=== PATIENT | female | born 1975 | race African-American/Black ===

== ENCOUNTER 2022-08-21 10:26 | Emergency (ER) | payer OTHER, MEDICAID, SELFPAY ==
[2022-08-21 10:34] VITALS: BP 152/82; PULSE 70; RESP 18; TEMP 36.3; O2SAT 100
[2022-08-21 10:39] VITALS: BP 152/82; PULSE 70; RESP 18; TEMP 36.3; O2SAT 100
--- NOTE | 2022-08-21 11:17 | ED.URI ---
HPI - URI/Sore Throat General Chief Complaint: Upper Respiratory Infection Stated Complaint: Cough/Chest Congestion Time Seen by Provider: 08/21/22 11:17 Source: patient, RN notes reviewed and old records reviewed Mode of arrival: ambulatory Limitations: no limitations History of Present Illness HPI Narrative: 46-year-old female who presents to [facility] with complaints cough cold symptoms since Friday. Mother reports that on Friday she had some nausea/vomiting, sinus pressure,chest congestion, sore throat cough, bilateral ear pain. Patient reports that she has been taking Flonase,Mucines, Tylenol,Robitussin for her cough and also Zyrtec. Patient reports history of sinus allergies. MD elicited complaint: cough, sore throat, rhinorrhea, nasal congestion, sinus pain and other (nausea and vomiting for 1 day) Onset (ago): day(s) (5) Pain scale (0-10): 8 Able to tolerate fluids by mouth: Yes Treatments prior to arrival: acetaminophen and other (Robitussin,Zyrtec, Mucinex,Flonase) Related Data Home Medications Medication Instructions Recorded Confirmed cetirizine 10 mg tablet 10 mg PO DAILY 08/21/22 08/21/22 ferrous sulfate 325 mg (65 mg 325 mg PO DAILY 08/21/22 08/21/22 iron) tablet (FeroSul) fluticasone propionate 50 1 spray intranasal DAILY 08/21/22 08/21/22 mcg/actuation nasal spray,suspension paroxetine HCl 20 mg tablet 20 mg PO DAILY 08/21/22 08/21/22 risperidone 1 mg tablet 1 mg PO DAILY 08/21/22 08/21/22 Allergies Allergy/AdvReac Type Severity Reaction Status Date / Time No Known Allergies Allergy Verified 08/21/22 10:39 Review of Systems Review of Systems: CONSTITUTIONAL: Reports malaise, chills, sweats, or fever. EYES: Denies visual changes, redness, or discharge. ENT: Reports rhinorrhea, congestion,facial sinus pain, otalgia and sore throat. CARDIOVASCULAR: Denies chest pain, palpitations, or edema. RESPIRATORY: Reports cough.? Denies dyspnea. GASTROINTESTINAL: Denies abdominal pain,1 day of nausea, vomiting,no diarrhea SKIN: Denies rash or itching. MUSCULOSKELETAL: Denies myalgia. NEUROLOGIC: Denies headache. All systems reviewed & are unremarkable except as noted in HPI and below PMFSH Past Medical History Medical History (Updated 08/22/22 @ 12:10 by Kiesha Nance NP) Depression Environmental allergies Surgical History Surgical History (Updated 08/22/22 @ 12:06 by Kiesha Nance NP) H/O toe surgery Previous section Social History Social History (Updated 08/22/22 @ 12:08 by Kiesha Nance NP) Smoking status: Never smoker Alcohol intake: current Alcohol use details: social Substance use type: does not use Living arrangements: with family Gender identity (if verbalized by the patient): Female Comments At time of signature, agree with nursing past medical, surgical, social and family history. There is no relevant family history pertinent to the presenting complaint Exam Narrative: GENERAL: Well-appearing, well-nourished, and in no acute distress. HEAD: Normocephalic EYES: PERRLA, conjunctivae clear ENT: Nares clear, turbinates edematous and erythematous, clear discharge. Mucous membranes moist. TM pearly caballero with dull light reflex bilaterally; no tragal tenderness. Oropharynx erythematous without lesions. Tonsils not enlarged and without exudate, no drooling, no hoarseness, no trismus, uvula midline.post nasal drainage NECK: Supple. No lymphadenopathy CHEST: Clear to auscultation, breath sounds equal. No wheezing, rhonchi, rales, or stridor. No respiratory distress, speaks in full sentences.cough, SAO2 100% on room air HEART: Regular rate and rhythm. No murmur heard. SKIN: Warm, dry, no rash. NEURO: Alert and oriented x3. PSYCH: Normal mood and affect Course Course Emergency Course: Patient is aware of diagnosis, understands and agrees to treatment plan.? Anticipatory guidance given.? Patient agrees to foll
== END 2022-08-21 11:39 | disposition home or self-care (01) ==
PROVIDERS: Emergency Provider Registered Nurse; PCP Nurse Practitioner
DX: J06.9 Acute upper respiratory infection, unspecified (principal); R05.9 Cough, unspecified; F32.A Depression, unspecified
CPT/HCPCS: 99213; G0463

== ENCOUNTER 2022-12-27 11:30 | Emergency (ER) | payer OTHER, SELFPAY ==
[2022-12-27 11:41] VITALS: BP 145/78; PULSE 95; RESP 16; TEMP 36.3; O2SAT 100
--- NOTE | 2022-12-27 12:01 | ED.NAVMDI ---
HPI - Nausea/Vomiting/Diarrhea General Chief complaint: Nausea/Vomiting/Diarrhea Stated complaint: headache/nausea/cramping Time Seen by Provider: 12/27/22 12:02 Source: patient, RN notes reviewed and old records reviewed Mode of arrival: ambulatory Limitations: no limitations History of Present Illness HPI Narrative: 47 year old female presents to [facility] care with complaints of headache, facial pressure,sinus congestion and drainage for about a week duration. She reports that she has been taking Claritin and using Flonase without relief. Patient reports history of seasonal allergies and past sinus infections. Patient also sttes that she has had some mild lower abdominal cramping, denies any nausea, vomiting or diarrhea. Patient reports that she is not on her menses and she has no burning or pain with urination, denies any constipation. MD elicited complaint: other (lower abdominal cramping, headache, sinus congestion and drainage ,facial pressure) Pertinent past history: other (none) Onset (ago): week(s) (1) Treatment prior to arrival: other (Flonase and Claritin) Related Data Home Medications Medication Instructions Recorded Confirmed cetirizine 10 mg tablet 10 mg PO DAILY 08/21/22 08/21/22 ferrous sulfate 325 mg (65 mg 325 mg PO DAILY 08/21/22 08/21/22 iron) tablet (FeroSul) fluticasone propionate 50 1 spray intranasal DAILY 08/21/22 08/21/22 mcg/actuation nasal spray,suspension paroxetine HCl 20 mg tablet 20 mg PO DAILY 08/21/22 08/21/22 risperidone 1 mg tablet 1 mg PO DAILY 08/21/22 08/21/22 Allergies Allergy/AdvReac Type Severity Reaction Status Date / Time No Known Allergies Allergy Verified 08/21/22 10:39 Review of Systems Review of Systems: CONSTITUTIONAL: Denies fever, chills, or sweats. EYES: Denies visual changes, redness, or discharge. ENT: Reports rhinorrhea, congestion, no sore throat, or otalgia. CARDIOVASCULAR: Denies chest pain, palpitations, or edema. RESPIRATORY: Denies cough or dyspnea. GASTROINTESTINAL: Reports lower abdominal cramping,denies any nausea, vomiting, or diarrhea. GENITOURINARY: Denies dysuria or hematuria. SKIN: Denies rash or itching. MUSCULOSKELETAL: Denies back pain, joint pain, or myalgia. NEUROLOGIC: reports frontal headache,no numbness, or weakness. PSYCHIATRIC: Positive for history of anxiety or depression. All systems reviewed & are unremarkable except as noted in HPI and below PMFSH Past Medical History Medical History (Updated 12/28/22 @ 08:41 by Kiesha Nance NP) Depression Environmental allergies Surgical History Surgical History (Updated 08/22/22 @ 12:06 by Kiesha Nance NP) H/O toe surgery Previous section Social History Social History (Updated 08/22/22 @ 12:08 by Kiesha Nance NP) Smoking status: Never smoker Alcohol intake: current Alcohol use details: social Substance use type: does not use Living arrangements: with family Gender identity (if verbalized by the patient): Female Comments At time of signature, agree with nursing past medical, surgical, social and family history. There is no relevant family history pertinent to the presenting complaint Exam Narrative: GENERAL: Well-appearing, well-nourished, and in no acute distress. HEAD: Normocephalic, atraumatic. EYES: PERRLA and EOMI. ENT: Nares clear, clear to light yellow rhinorrhea no epistaxis, facial sinus pressure left side and frontal headache. Mucous membranes moist.TM's normal with dull light reflex, throat pink with no lesions or swelling post nasal drainage noted NECK: Supple. no lymphadenopathy CHEST: Clear to auscultation. No respiratory distress.SAO2 100% on room air HEART: Regular rate and rhythm. No murmur heard. Normal peripheral pulses. ABDOMEN: Soft, nontender to palpation, no McBurney point tenderness, nondistended, normal active bowel sounds.No burning or pain with urination or CVA tenderness EXTREMITIES: Normal range of motion. N
== END 2022-12-27 12:48 | disposition home or self-care (01) ==
PROVIDERS: Emergency Provider Registered Nurse; PCP Nurse Practitioner
DX: J32.9 Chronic sinusitis, unspecified (principal); F32.A Depression, unspecified
CPT/HCPCS: 81003; 99213; G0463

== ENCOUNTER 2024-05-11 14:02 | Emergency (ER) | payer SELFPAY ==
[2024-05-11 14:23] LABS: EDUAAPPEAR Cloudy; EDUABILI Negative (Negative); EDUABLOOD 3+ (Negative); EDUACOLOR1 Amber; EDUAGLUCOSE Negative (Negative); EDUAKETONE Negative (Negative); EDUALEUKO Negative (Negative); EDUANITRATE Negative (Negative); EDUAPH 6.5; EDUAPROTEIN 1+ (Negative); EDUASPGRAVITY 1.015; EDUAUROBILI 0.2
[2024-05-11 14:25] VITALS: BP 151/81; PULSE 100; RESP 20; TEMP 36.8
--- NOTE | 2024-05-11 14:44 | ED_ITS ---
HPI - General Adult General Chief complaint: Urogenital-Female Stated complaint: Urinary Problem Source: patient Mode of arrival: ambulatory Limitations: no limitations History of Present Illness HPI narrative: Patient presents for evaluation of two episodes of what she believes to be hematuria that occurred today. She saw blood in the toilet after using the restroom. She has also experienced urinary frequency for the past month without other urinary symptoms. She saw her PCP about a month ago and had what sounds to be incidental hematuria noted on urinalysis. She did not have any gross hematuria at that time. She was having some right lower back pain around that time and her PCP told her that she may have kidney stones. However, no imaging was performed to confirm this. She was started on flomax and it sounds like she is still taking it. She was having some vaginal discharge and her PCP treated her for vaginal candidiasis with Diflucan. Her discharge has since resolved. She states she has had some intermittent right sided flank pain with last episode about four days ago. She denies any fever, chills, abdominal pain, or vaginal discharge. Her menstruation is typically fairly regular and her LMP was 04/22/24. Surgical history positive for . She did have an ectopic in May of 2022. Related Data Home Medications ?Medication ?Instructions ?Recorded ?Confirmed ?Last Taken ?Type tamsulosin 0.4 mg capsule mg PO 05/11/24 Unknown History Allergies Allergy/AdvReac Type Severity Reaction Status Date / Time acetaminophen (From Vicodin) Allergy Unknown Unknown Verified 05/11/24 14:19 hydrocodone (From Vicodin) Allergy Unknown Unknown Verified 05/11/24 14:19 morphine Allergy Unknown Unknown Verified 05/11/24 14:19 Review of Systems Review of Systems: CONSTITUTIONAL: Denies fever, chills, or sweats. EYES: Denies visual changes, redness, or discharge. ENT: Denies rhinorrhea, congestion, sore throat, or otalgia. CARDIOVASCULAR: Denies chest pain, palpitations, or edema. RESPIRATORY: Denies cough or dyspnea. GASTROINTESTINAL: Denies abdominal pain, nausea, vomiting, or diarrhea. GENITOURINARY: Reports urinary frequency and what she believes to be hematuria SKIN: Denies rash or itching. MUSCULOSKELETAL: Denies low back pain joint pain, or myalgia. NEUROLOGIC: Denies headache, numbness, dizziness, or weakness. PSYCHIATRIC: Denies anxiety or depression. [facility] Past Medical History Medical History Depression Environmental allergies Surgical History Surgical History H/O toe surgery Previous section Family History Family History Mother Family history non-contributory Social History Social History (Updated 08/22/22 @ 12:08 by Kiesha Nance NP) Smoking status: Never smoker Alcohol intake: current Alcohol use details: social Substance use type: does not use Living arrangements: with family Gender identity (if verbalized by the patient): Female Exam Narrative: GENERAL: Well-appearing, well-nourished, and in no acute distress. HEAD: Normocephalic, atraumatic. EYES: PERRLA and EOMI. ENT: Nares clear, no rhinorrhea or epistaxis. Mucous membranes moist. Oropharynx without tonsillar hypertrophy exudate or other lesions. Bilateral TMs pearly caballero nonbulging NECK: Supple. No adenopathy or masses. No carotid bruits or JVD CHEST: Clear to auscultation. No respiratory distress. No wheezes rales or rhonchi HEART: Regular rate and rhythm. No murmur heard. Normal peripheral pulses. ABDOMEN: Soft, nondistended, normal active bowel sounds. There is right lower quadrant tenderness. GENITAL: No external genital lesions. There is moderate amount of blood in the vaginal vault EXTREMITIES: Normal range of motion. No edema. SKIN: Warm, dry, no rash. NEURO: No focal deficits. Alert and oriented x3. PSYCH: Normal mood and affect. Course Course Emergency Course: This is a 48-year-old female who presented for evaluation of what she believed to be hematuria. Urine today positive for blood. I did a pelvic exam and bleeding appears to be coming from her uterus as she has a moderate amount of blood in the vaginal vault. She is tender in the right lower quadrant. Recommended she be transferred to the hospital for further evaluation. [facility] is her facility of [facility]. I contacted [facility] and spoke with RN, Cassidy, who indicates that Dr Rosenthal will accept pt for transfer there. Patient was updated throughout her stay and was in agreement plan of care, including plans for transfer. Level of Care: Express Care Visit Vital Signs Vital signs: Vital Signs Temperature 36.8 C 05/11/24 14:25 Pulse Rate 100 05/11/24 14:25 Respiratory Rate 20 05/11/24 14:25 Blood Pressure 151/81 H 05/11/24 14:25 Oxygen Delivery Room Air 05/11/24 14:25 Temperature 36.8 C 05/11/24 14:25 Pulse Rate 100 05/11/24 14:25 Respiratory Rate 20 05/11/24 14:25 Blood Pressure 151/81 H 05/11/24 14:25 Oxygen Delivery Room Air 05/11/24 14:25 Medical Decision Making Vital Signs Vital Signs: Vital Signs Temperature 36.8 C 05/11/24 14:25 Pulse Rate 100 05/11/24 14:25 Respiratory Rate 20 05/11/24 14:25 Blood Pressure 151/81 H 05/11/24 14:25 Oxygen Delivery Room Air 05/11/24 14:25 Temperature 36.8 C 05/11/24 14:25 Pulse Rate 100 05/11/24 14:25 Respiratory Rate 20 05/11/24 14:25 Blood Pressure 151/81 H 05/11/24 14:25 Oxygen Delivery Room Air 05/11/24 14:25 Lab Data Labs: Lab Results 05/11/24 05/11/24 05/11/24 Range/Units 14:19 14:57 15:05 POC Capillary Glucose 78 (65-105) mg/dl POC Urine Color Magaly POC Urine Clarity Cloudy POC Urine pH 6.5 POC Ur Specif [place] 1.015 POC Urine Protein 1+ (Negative) POC Ur Glucose (UA) Negative (Negative) POC Urine Ketones Negative (Negative) POC Urine Blood 3+ (Negative) POC Urine Nitrite Negative (Negative) POC Urine Bilirubin Negative (Negative) POC Urine Urobilinogen 0.2 POC U Leukocyte Esteras Negative (Negative) POC Urine HCG, Qual Negative (Negative) Discharge Plan Discharge Clinical Impression: Pelvic pain, Vaginal bleeding Patient Disposition: Acute Care Hospital Condition: Stable Patient Language: Tamazight Prescriptions: No Action tamsulosin 0.4 mg capsule PO Follow-up/Referrals: Nicoal,Immanuel Ma APRN [Primary Care Provider] - Time of Disposition: 15:08
[2024-05-11 14:59] LABS: Glucose Point of Care 78 mg/dl (65-105)
[2024-05-11 15:06] LABS: BEDSIDEPREGUCG Negative (Negative)
== END 2024-05-11 15:12 | disposition short-term general hospital (02) ==
PROVIDERS: Emergency Provider Nurse Practitioner; PCP Nurse Practitioner
DX: R10.2 Pelvic and perineal pain (principal); N93.9 Abnormal uterine and vaginal bleeding, unspecified
CPT/HCPCS: 81003; 81025; 82948; 99214; G0463

== ENCOUNTER 2025-03-15 15:13 | Emergency (ER) | payer OTHER, SELFPAY ==
--- OUTSIDE RECORDS SUMMARY | 2010-10-30 11:40 | XMS_ITS | Continuity of Care Document ---
Author Organization [facility] Address [address] [place] [address] Phone Care Team Providers Care Quality Rn Name Role Phone Unavailable Unavailable Unavailable Medications Medication Instructions Dosage Effective Dates (start - stop) Status Comments Dyazide 37.5 mg-25 mg Cap - Active Nicotine 14 mg/24 hr daily Patch - Active Procedures Procedure Date ULTRASOUND PELVIC NON-OB Advance Directives Directive Yes / No Effective Date File Name No Information Encounters Encounter Description Practice Location Reason(s) For Visit Diagnoses Date Provider Providers Copied on Encounter [facility], [address], [place], [place], [id number], [place] tel:[phone] [facility] No Information 1 No Information [facility], [address], [place], [place], [id number], [place] tel:[phone] Noteworthy Legacy Data Nondependent tobacco use disorderBenign essential hypertensionExc essive or frequent menstruationOth er general counseling and advice on contraceptive management 1 No Information Family History Family Member Type Diagnosis Age At Onset No Information Payers Payer name Insurance type Covered libertarian ID Authoriza tion(s) No Information Social History Type Description Quantity Date Captured Comments Sex Female Smoking Status No Information Chief Complaint And Reason For Visit No Information Reason For Referral Reason For Referral No Information History Of Present Illness Encounter Date Complaint History Of Prese nt Illness No Information Functional Status Date Functional Assessmen t No Information Instructions Date Instruction Additional Infor mation No Information Assessments Type Assessment Date No Information Patient Care Teams Name Effective Dates (start - stop) Status Members No Information
[2025-03-15 15:26] VITALS: BP 150/84; PULSE 87; RESP 18; TEMP 36.6; O2SAT 100
--- NOTE | 2025-03-15 16:16 | ED_ITS ---
HPI - General Adult General Chief complaint: Skin/Abscess/Foreign Body Stated complaint: rash on neck Source: patient Mode of arrival: ambulatory Limitations: no limitations History of Present Illness HPI narrative: Patient presents for evaluation pruritic rash to left neck. Symptom onset yesterday. She had used Pond's cream prior to the time of symptom onset. She thought her rash may be fungal in origin so applied ketoconazole. She experienced burning in the area thereafter, without any improvement. She denies any difficulty breathing or swallowing. She states her environmental allergies have been bothersome as of late. Related Data Home Medications ?Medication ?Instructions ?Recorded ?Confirmed ?Last Taken ?Type paroxetine HCl 20 mg tablet mg PO 03/15/25 Unknown Hi story risperidone 1 mg tablet mg 03/15/25 Unknown History Allergies Allergy/AdvReac Type Severity Reaction Status Date / Time acetaminophen (From Vicodin) Allergy Unknown Unknown Verified 03/15/25 15:25 hydrocodone (From Vicodin) Allergy Unknown Unknown Verified 03/15/25 15:25 morphine Allergy Unknown Unknown Verified 03/15/25 15:25 Review of Systems Review of Systems: CONSTITUTIONAL: Denies fever, chills, or sweats. EYES: Denies visual changes, redness, or discharge. ENT: Denies rhinorrhea, congestion, sore throat, or otalgia. CARDIOVASCULAR: Denies chest pain, palpitations, or edema. RESPIRATORY: Denies cough or dyspnea. GASTROINTESTINAL: Denies abdominal pain, nausea, vomiting, or diarrhea. GENITOURINARY: Denies dysuria or hematuria. SKIN:Reports pruritic rash to left lateral neck MUSCULOSKELETAL: Denies back pain, joint pain, or myalgia. NEUROLOGIC: Denies headache, numbness, dizziness, or weakness. PSYCHIATRIC: Denies anxiety or depression. [facility] Past Medical History Medical History Depression Environmental allergies Surgical History Surgical History H/O toe surgery Previous section Family History Family History Mother Family history non-contributory Social History Social History Smoking status: Never smoker Alcohol intake: current Alcohol use details: social Substance use type: does not use Living arrangements: with family Gender identity (if verbalized by the patient): Female Exam Narrative: GENERAL: Well-appearing, well-nourished, and in no acute distress. HEAD: Normocephalic, atraumatic. EYES: PERRLA and EOMI. ENT: Nares clear, no rhinorrhea or epistaxis. Mucous membranes moist. Oropharynx without tonsillar hypertrophy exudate or other lesions. Bilateral TMs pearly caballero nonbulging NECK: Supple. No adenopathy or masses. No carotid bruits or JVD CHEST: Clear to auscultation. No respiratory distress. No wheezes rales or rhonchi HEART: Regular rate and rhythm. No murmur heard. Normal peripheral pulses. ABDOMEN: Soft, nontender, nondistended, normal active bowel sounds. EXTREMITIES: Normal range of motion. No edema. SKIN: There is a very light erythematous rash with overlying scaling to the left posterolateral aspect of the neck NEURO: No focal deficits. Alert and oriented x3. PSYCH: Normal mood and affect. Course Course Emergency Course: This is a 49-year-old female who presented for evaluation of a pruritic rash. Antifungals have been ineffective. Will try triamcinolone. Follow up with primary provider. Go to the ER for worsening symptoms. Pt in agreement with plan of care. Level of Care: Express Care Visit Vital Signs Vital signs: Vital Signs Temperature 36.6 C 03/15/25 15: Pulse Rate 87 03/15/25 15:26 Respiratory Rate 18 03/15/25 15:26 Blood Pressure 150/84 H 03/15/25 15:26 Pulse Oximetry 100 03/15/25 15:26 Oxygen Delivery Room Air 03/15/25 15:26 Temperature 36.6 C 03/15/25 15: Pulse Rate 87 03/15/25 15:26 Respiratory Rate 18 03/15/25 15:26 Blood Pressure 150/84 H 03/15/25 15:26 Pulse Oximetry 100 03/15/25 15:26 Oxygen Delivery Room Air 03/15/25 15:26 Medical Decision Making Vital Signs Vital Signs: Vital Signs Temperature 36.6 C 03/15/25 15: Pulse Rate 87 03/15/25 15:26 Respiratory Rate 18 03/15/25 15:26 Blood Pressure 150/84 H 03/15/25 15:26 Pulse Oximetry 100 03/15/25 15:26 Oxygen Delivery Room Air 03/15/25 15:26 Temperature 36.6 C 03/15/25 15:26 Pulse Rate 87 03/15/25 15:26 Respiratory Rate 18 03/15/25 15:26 Blood Pressure 150/84 H 03/15/25 15:26 Pulse Oximetry 100 03/15/25 15:26 Oxygen Delivery Room Air 03/15/25 15:26 Discharge Plan Discharge Clinical Impression: Dermatitis Patient Disposition: Home Condition: Stable Instructions: Antibiotic Form, Dermatitis (ED) Patient Language: Ukrainian Prescriptions: New triamcinolone acetonide 0.1 % cream 1 applic topical BID Qty: 80 0RF No Action paroxetine HCl 20 mg tablet PO risperidone 1 mg tablet Follow-up/Referrals: Lucio,Hilaria Alvarado APRN [Primary Care Provider, Unknown] Time of Disposition: 16:15
--- OUTSIDE RECORDS SUMMARY | 2025-03-15 19:02 | XMS_ITS | Clinical Summary ---
Author Organization [facility] Address [address] [place] [id number] Care Team Providers Care Distribution Technician Name Role Phone Franck Hathaway MD Unavailable [phone] Immanuel Petersen NP Primary Care Provider [phone] Allergies Active Allergy Reactions Criticality Noted Date Comments Hydrocodone-Acetaminophen Itching Low 03/11/2023 Morphine Itching Low 03/11/2023 Medications PARoxetine (PAXIL) 20 MG tablet Take 1 tablet (20 mg total) by mouth nightly at bedtime. 30 tablet 05/15/2024 Active risperiDONE (RISPERDAL) 1 MG tablet Take 1 tablet (1 mg total) by mouth nightly at bedtime. 60 tablet 05/15/2024 Active ferrous sulfate EC 324 (65 Fe) MG tablet Take 1 tablet (324 mg total) by mouth daily with breakfast. 60 tablet 1 05/16/2024 Active ACETAMINOPHEN EXTRA STRENGTH 500 MG tablet Take 1 tablet (500 mg total) by mouth every 4 (four) hours as needed. 08/13/2024 Active Active Problems Problem Noted Date Diagnosed Date Hypertensive disorder 07/13/2024 Chest pain 05/14/2024 Elevated troponin 05/14/2024 Atypical glandular cells of undetermined significance (CHERI) on cervical Pap smear 04/06/2023 NSTEMI (non-ST elevated myocardial infarction) 1 Family History Medical History Relation Comments Heart Disease Father Relation Status Comments Father Social History Tobacco Use Types Packs/Day Years Used Date Smoking Tobacco: Former Cigarettes 0.5 22 Smokeless Tobacco: Never Tobacco Cessation:Counseling Given: Not Answered Comments:Quit smoking 2020 Alcohol Use Standard Drinks/Week Comments No 0 (1 standard drink = 0.6 oz pur e alcohol) [facility] Utilities Answer Date Recorded In the past 12 months has e electric, gas, oil, or water company threatened to shut off services in your home? Yes 05/14/2024 Humiliation, Afraid, Rape, and Kick questionnair e Answer Date Recorded Within the last year, have y ou been afraid of your partner or ex-partner? No 05/14/2024 Within the last year, have y ou been humiliated or emotionally abused in other ways by your partner or ex-partner? No Within the last year, have y ou been kicked, hit, slapped, or otherwise physically hurt by your partner or ex-partner? No 05/14/2024 Within the last year, have y ou been raped or forced to have any kind of sexual activity by your partner or ex-partner? No 05/14/2024 Overall Financial Resource Strain (CARDIA) Answe r Date Recorded How hard is it for you to pa y for the very basics like food, housing, medical care, and heating? Somewhat hard 05/14/2024 Hunger Vital Sign Answer Date Recorded Within the past 12 months, y ou worried that your food would run out before you got the money to buy more. Sometimes true Within the past 12 months, t he food you bought just didn't last and you didn't have money to get more. Sometimes true PRAPARE - Transportation Answer Date Re corded In the past 12 months, has l ack of transportation kept you from medical appointments or from getting medications? No 04/26 In the past 12 months, has l ack of transportation kept you from meetings, work, or from getting things needed for daily living? No 05/14/2024 Housing Stability Vital Sign Answer Ross e Recorded In the last 12 months, was t here a time when you were not able to pay the mortgage or rent on time? No 05/14/2024 In the past 12 months, how m any times have you moved where you were living? 0 05/14/2024 At any time in the past 12 m [facility], were you homeless or living in a group home (including now)? 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 Respiratory Rate 15 05/15/2024 11:58 AM FIVE ROLL REFINER BATCH MIXER Oxygen Saturation 100% 08/23/2024 2:24 PM CDT Inhaled Oxygen Concentration - - Weight 97.5 kg (215 lb) 08/23/2024 2:24 PM CDT Height 170.2 cm (5' 7) 08/23/2024 2:24 PM CDT Body Mass Index 33.67 08/23/2024 2:24 PM CDT Plan of Treatment Upcoming Encounters Date Type Department Care Team (Late st Contact Info) Description 08/23/2025 11:00 AM CDT Appointment [facility] [place] [address] Yumiko King APRN Three [facility] [address] [place], [place] [address] 08/31/2025 11:00 AM CDT Office Visit [facility] THREE [facility] [address] [place], [place] [address] Rylan Mcghee MD Three [facility] [address] [place], [place] [address] Health Maintenance Due Date Last Done Comments ASCVD Statin 1975 Cervical Cancer Screening Pa p Smear (Age 30 to 64) Every 3 Years 1977 Colorectal Cancer Screening Colonoscopy (10 Years) 1977 Annual Physical 1980 Hepatitis C 09/15/1995 DTaP, Tdap and Td Vaccines ( 1 - Tdap) 1996 Hepatitis B Vaccines (1 of 3 - 19+ 3-dose series) 1996 Pneumococcal Vaccine: Pediat rics (0 to 5 Years) and At-Risk Patients (6 to 49 Years) (1 of 2 - PCV) 1996 Cervical Cancer Screening Pa p with HPV Testing (Age 30 to 64) Every 5 Years 09/15/2007 Cervical Cancer Screening with HPV 09/15/2007 COVID-19 Vaccine (1 - 2023-2 5 season) 2025 Influenza Adult (#1) 2025 Mammogram Screening 04/30/2025 04/30/2023 Hepatitis A Vaccines Aged Out No long er eligible based on patient's age to complete this topic Meningococcal B Vaccine Aged Out No l onger eligible based on patient's age to complete this topic Meningococcal Vaccine Aged Out No chad froilan eligible based on patient's age to complete this topic RSV Immunizations Under 20 Months Aged Out No longer eligible based on patient's age to complete this topic Insurance [employer] [place] [employer] Advance Directives * Full Code (Latest Code Status on File) Date Activated Date Inactivated Comments 05/14/2024 5:28 PM 05/15/2024 4:18 PM * Full Code Date Activated Date Inactivated Comments 05/14/2024 4:58 PM 05/14/2024 5:28 PM * Full Code Date Activated Date Inactivated Comments 03/21/2018 12:41 AM 03/21/2018 1:33 PM Care Teams Distribution Technician Relationship Specialty Start Date End Date Immanuel Petersen NP PCP - General NURSE PRACTITIONER 05/30/22 Franck Hathaway MD Dede Stagecraft Teacher CARDIOVASCULAR DISEASE 08/21/18
--- OUTSIDE RECORDS SUMMARY | 2025-03-15 19:02 | XMS_ITS | Encounter Summary ---
Author Organization [facility] Address [address] [place] [address] Phone Care Team Providers Care Electric Fork Operator Name Role Phone Immanuel Petersen NP Primary Care Provider + [phone] Franck Hathaway MD Unavailable [phone] Yumiko King NOC TECHNICIAN Primary Care Provider [phone] Encounter Details Date Type Department Care Team (Late st Contact Info) Description 05/14/2022 Telephone [facility] Medicine Cardiology [facility] Advanced Medicine 8th [place] [address] [place] [address] Tamika Javier Social History Tobacco Use Types Packs/Day Years Used Date Smoking Tobacco: Former Cigarettes Comments Unknown Sex and Gender Information Value Date Recorded Sex Assigned at Not on file 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 Gender Identity Not on file Sexual Orientation Not on file documented as of this encounter Plan of Treatment Not on file documented as of this encounter Visit Diagnoses Not on filedocumented in this encounter Care Teams Electric Fork Operator Relationship Specialty Start Date End Date Immanuel Petersen [facility] [place] [address] PCP - General Pain Management 02/21/22 09/08/24 Yumiko King NP Three [address] [address] PCP - General Family Medicine 09/09/24 Franck Hathaway MD [address] [address] Referring Physician Cardiovascular Disease 08/24/24 documented as of this encounter
--- OUTSIDE RECORDS SUMMARY | 2025-03-15 19:02 | XMS_ITS | Clinical Summary ---
Author Organization [facility] Address [address] [place] [address] Care Team Providers Care Internet Cafe Manager Name Role Phone Fredy Rivas MD Primary Care Provider [phone] Source Comments [facility],non-owned Affiliates and Associated Physician Practices is amultiple site organization consisting of ambulatory clinics and hospital sitesin [place], [place], [place] and [place]. This disclosure is being madepursuant to the Care Everywhere program and may not contain all information available regarding this patient. Last updated 18.[facility] Allergies No known active allergies Medications * Be aware that medications may not be up to date on this document. Alwaysverify current medications with the patient. benztropine (COGENTIN) 1 MG tablet Take 1 mg by mouth at bedtime Active carBAMazepine ER 12hr (CARBATROL) 200 MG capsule Take 200 mg by mouth at bedtime Active melatonin 3 MG tablet Take 5 mg by mouth at bedtime Active PARoxetine (PAXIL) 40 MG tablet Take 40 mg by mouth at bedtime Active risperiDONE (RISPERDAL) 1 MG tablet Take 1 mg by mouth at bedtime Active fluticasone propionate (FLONASE) 50 MCG/ACT nasal sprayIndication s:Mixed rhinitis Cascade 1 (one) spray into each nostril 2 times daily 16 g 5 11/06/2020 Active azelastine (ASTELIN) 0.1 % nasal sprayIndication s:Mixed rhinitis Cascade 2 (two) sprays into each nostril 2 times daily 1 Inhaler 5 11/06/2020 Active ketotifen (ZADITOR) 0.025 % ophthalmic solutionIndicat ions:Mixed rhinitis Instill 1 (one) drop into both eyes 2 times daily 5 mL 5 11/06/2020 Active Active Problems Problem Noted Date Diagnosed Date Elevated troponin 12/12/2017 Chest pain 12/12/2017 Family History Medical History Relation Name Comments Sickle Cell Anemia Brother Hypertension Father None Known Mother Relation Name Status Comments Brother Father Mother Social History Tobacco Use Types Packs/Day Years Used Date Smoking Tobacco: Some Days Cigarettes 0.5 22 Smokeless Tobacco: Never Tobacco Cessation:Ready to Q uit: No; Counseling Given: Yes Alcohol Use Standard Drinks/Week Comments No 0 (1 standard drink = 0.6 oz pur e alcohol) PHQ-2 Answer Date Recorded PHQ2 TOTAL SCORE 0 11/06/2020 Comments No Sex and Gender Information Value Date Recorded Sex Assigned at Not on file Legal Sex Female 12:58 PM CDT Gender Identity Not on file Sexual Orientation Not on file Last Filed Vital Signs Vital Sign Reading Time Taken Comments Blood Pressure 118/54 12/15/2017 12:04 PM CDT Pulse 54 12/15/2017 12:04 PM CDT Temperature 36.5 C (97.7 F) 12/15/2017 12:04 PM CDT Respiratory Rate 18 12/15/2017 12:04 PM CDT Oxygen Saturation 100% 12/15/2017 12:04 PM CDT Inhaled Oxygen Concentration - - Weight 86.6 kg (191 lb) 12/15/2017 8:15 AM CDT Height 170.2 cm (5' 7) 12/15/2017 8:15 AM CDT Body Mass Index 29.91 12/15/2017 8:15 AM CDT Plan of Treatment Health Maintenance Due Date Last Done Comments COLOGUARD (AGES 45-75) - COL ON CA SCREENING 1977 COLON MONITORING 1977 COLONOSCOPY - COLON CA SCREENING 1977 CT COLONOGRAPHY - COLON CA SCREENING 1977 Colorectal Cancer Screening 1977 FIT - COLON CA SCREENING 1977 FLEX SIG - COLON CA SCREENING 1977 LIPID TESTING 1977 MAMMOGRAM 1977 HIV SCREENING 1992 HEPATITIS C SCREENING 09/10/1995 DTAP/TDAP/TD VACCINES (1 - Tdap) 1996 HEPATITIS B VACCINE (1 of 3 - 19+ 3-dose series) 1996 PNEUMOCOCCAL VACCINE (1 of 2 - PCV) 1996 PAP SMEAR 1998 DEPRESSION SCREENING 05/26/2024 COVID-19 VACCINE (1 - 2023-2 5 season) 2025 INFLUENZA VACCINE (#1) 2025 ZOSTER VACCINE (1 of 2) 09/15/2027 HIB VACCINE Aged Out No longer eligi ble based on patient's age to complete this topic HPV VACCINE Aged Out No longer eligi ble based on patient's age to complete this topic MENINGOCOCCAL (Group B) VACC INE SHARED DECISION-MAKING Aged Out No longer eligibl e based on patient's age to complete this topic MENINGOCOCCAL GROUPS A/C/Y/W VACCINE Aged Out No longer eligible b ased on patient's age to complete this topic Insurance * Guarantor: TIKI MEDINA Account Type Relation to Patient Date of Phone Billing Address Personal/Family [address] [facility] [address] Advance Directives * Full Code (Latest Code Status on File) Date Activated Date Inactivated Comments 12/12/2017 9:58 PM 12/15/2017 3:41 PM Care Teams Internet Cafe Manager Relationship Specialty Start Date End Date Fredy Rivas MD [address] [place] [address] [place] [id number] PCP - General Emergency Medicine 12/12/17
--- OUTSIDE RECORDS SUMMARY | 2025-03-15 19:02 | XMS_ITS | Data Portability ---
Author Organization [facility], [facility] Address [address] [place] [address] Assessment Encounter Date Assessment Date Assessment LastModified by Organization Details LastModified Time 08/12/2024 08/12/2024 CA 125 normal [email or web address] Not available 08/15/2024 08:07:50 Plan of Treatment Reminders Order Date Submit Date Provider Last Modified By Organization Details Last Modified Time Details Appointments None recorded. Lab unlisted lab - sureswab(R) advanced vaginitis plus, tma 2024 025 [employer], [address] [place], [address], 5 10:38:23 biopsy, tissue [email or web address], [address] [place], [address], 17:49:56 test, urine 2024 025 [email or web address] [facility], [address] [place], [address], 18:03:44 biopsy, tissue 2024 025 [employer] [facility], [address] [place], [address], 5 14:06:49 pap, LB 2024 025 [employer] [facility], [address] [facility], [place], [address], 5 13:21:01 HPV E6+E7 mRNA, qualitative PCR, cervix 2024 025 [facility], [address] [place], [address], 5 16:59:47 bacterial vaginosis + vaginitis panel, vaginal 2023 024 [facility], [address] [place], [address], 4 14:30:03 ca 125, serum 2023 024 [employer] [facility], [address] [place], [address], 4 07:08:07 Referral None recorded. Procedures None recorded. Surgeries None recorded. Imaging MRI, pelvis, w/wo contrast - 4.2cm hydrosalpix noted on CT scan from 05/12, MRI recommended . 2023 024 [facility], [address] [place], [address], 5 11:27:49 Medication Orders metronidazo le 500 mg tablet 2024 025 [id number], [address] [place], [place], [id number], 5 13:22:06 fluconazole 150 mg tablet 2024 025 [id number], [address], [place], [id number], 5 13:22:05 Patient TargetsNo targets recorded. Patient Instructions Encounter Date Encounter Id Patient Instructions Last Modified By Organization Details Last Modified Time 09/06/2024 [id number] colposcopy: what to expect at home [email or web address] Not available 09/06/2024 18:03:44 Reason for Referral None Reported. Results Created Date Observation Date Name Description Value Unit Range Abnormal Flag Note LastModifiedBy Organization Detail LastModifiedTime 05/21/20 24 05/21/2024 CA 125 Ca 125 12 U/mL <35 normal This test was perfo rmed using the Sieme ns Chemi lumin escen t metho d. Value s obtai krystyna from diffe rent assay metho ds canno t be used inter ramos eably . CA 125 level s, regar dless of value , shoul d not be inter prete d as absol eloy evide nce of the prese nce or absen ce of disea se. NO COLLE CTION DATE RECEI DEIDRA. WE HAVE USED THE DATE THE SPECI MEN WAS RECEI DEIDRA BY THIS LABOR ATORY THE COLLE CTION DATE. IF THIS IS INCOR RECT, PLEAS E CONTA CT CLIEN T SERVI ELIOT. PHONE NUMBE R: [phone] Not Available [employer] [address] [place], [address], 05/21/2024 07:08:07 08/18/1908/17/2024 HPV GENOT YPE HPV 16 Negati ve negati ve normal Not Available [facility] [address] [place], [address], 08/17/2024 16:59:47 08/18/1908/17/2024 HPV GENOT YPE HPV 18/45 Negati ve negati ve normal Assay can diffe renti ate HPV 16 from HPV 18 and/o r HPV 45. But canno t diffe renti ate betwe en 18 and 45. Not Available [facility] [address] [place], [address], 08/17/2024 16:59:47 08/18/19 25 08/13/2024 HPV HIGH RISK HPV high risk POSITI VE negati ve abnormal The HPV High Risk assay is inten ded for use as co-te sting with cytol ogy and not as a subst itute for regul ar cervi aguilar cytol ogy scree lilo. This assay is not inten ded for use as a scree lilo devic e for women under age 30 with meredith l cervi aguilar cytol ogy. Not Available [facility] [address] [place], [address], 08/17/2024 16:59:48 09/26/19 25 09/25/2024 SURES WAB(R ) ADVAN JENNIFER VAGIN ITIS PLUS, TMA sureswab(R) adv bacterial vaginosis (bv), tma POSITI VE negati ve abnormal Not Available [address], [address], 09/25/2024 10:38:23 09/26/19 25 09/25/2024 SURES WAB(R ) ADVAN JENNIFER VAGIN ITIS PLUS, TMA any species NOT DETECT ED not detect ed normal Not Available [address], [address], 09/25/2024 10:38:23 09/26/19 25 09/25/2024 SURES WAB(R ) ADVAN JENNIFER VAGIN ITIS PLUS, TMA any glabrata NOT DETECT ED not detect ed normal Sanjana da speci es C. albic ans, C. tropi calis , C. parap jorgito is, and/o r C. dubli niens is can be detec funmi, but not diffe renti ated, in the Sanjana da spp. resul t. Not Available [address] [place], [address], 09/25/2024 10:38:23 09/26/19 25 09/25/2024 SURES WAB(R ) ADVAN JENNIFER VAGIN ITIS PLUS, TMA trichomonas vaginalis (TV), tma NOT DETECT ED not detect ed normal Not Available [facility] [address] [address] [place], [address], 09/25/2024 10:38:23 09/26/19 25 09/25/2024 SURES WAB(R ) ADVAN JENNIFER VAGIN ITIS PLUS, TMA chlamydia trachomatis RNA, tma, urogenital NOT DETECT ED not detect ed normal Not Available [employer] [address], [address], 09/25/2024 10:38:23 09/26/19 25 09/25/2024 SURES WAB(R ) ADVAN JENNIFER VAGIN ITIS PLUS, TMA neisseria gonorrhoeae RNA, tma, urogenital NOT DETECT ED not detect ed normal For addit ional infor marion aviles refer to https ://ed ucati on.Emu Messenger. Blockboard/f aq/FA Q154 (This link is being provi ded for mary ram/ kassidy verduzco purpo ses only. ) NO COLLE CTION DATE RECEI DEIDRA. WE HAVE USED THE DATE THE SPECI MEN WAS RECEI DEIDRA BY THIS LABOR ATORY THE COLLE CTION DATE. IF THIS IS INCOR RECT, MARION E CONTA CT CLIEN T SERVI ELIOT. PHONE NUMBE R: [phone] Not Available [employer] [address], [address], 09/25/2024 10:38:23 05/20/20 24 05/21/2024 VAGIN ITIS PLUS STD PANEL bacterial vaginosis BV POS negati ve abnormal Not Available [facility] [address] [place], [address], 05/21/2024 14:30:03 05/20/20 24 05/21/2024 VAGIN ITIS PLUS STD PANEL any species C. spp neg negati ve normal Not Available [facility] [address] [place], [address], 05/21/2024 14:30:03 05/20/20 24 05/21/2024 VAGIN ITIS PLUS STD PANEL any glabrata C. gla neg negati ve normal Not Available [facility] [address] [place], [address], 05/21/2024 14:30:03 05/20/20 24 05/21/2024 VAGIN ITIS PLUS STD PANEL trichomonas vaginalis CV/TV TRICH neg negati ve normal Not Available [facility] [address] [place], [address], 05/21/2024 14:30:03 05/20/20 24 05/21/2024 VAGIN ITIS PLUS STD PANEL chlamydia trachomatis CT neg negati ve normal This repor t is inten ded for us in clini aguilar monit oring and manag ement of patie nts. It is not inten ded for use in medic al-le gal appli catio n. Not Available [facility] [address] [place], [address], 05/21/2024 14:30:03 05/20/20 24 05/21/2024 VAGIN ITIS PLUS STD PANEL neisseria gonorrhoeae GC neg negati ve normal This repor t is inten ded for us in clini aguilar monit oring and manag ement of patie nts. It is not inten ded for use in medic al-le gal appli catio n. Not Available [facility] [address] [place], [address], 05/21/2024 14:30:03 08/13/19 25 08/17/2024 THINP REP TIS PAP clinical information: normal None given Not Available [facility] [place] [address] [address] [place], [address], 08/17/2024 13:21:01 08/13/19 25 08/17/2024 THINP REP TIS PAP LMP: normal NONE GIVEN Not Available [facility] [address] [address] [place], [address], 08/17/2024 13:21:01 08/13/19 25 08/17/2024 THINP REP TIS PAP prev. Pap: normal NONE GIVEN Not Available [employer] [address] [address] [place], [address], 08/17/2024 13:21:01 08/13/1908/17/2024 THINP REP TIS PAP prev. BX: normal NONE GIVEN Not Available [address] [place], [address], 08/17/2024 13:21:01 08/13/1908/17/2024 THINP REP TIS PAP source: normal Cervi x Not Available [address] [address] [place], [address], 08/17/2024 13:21:01 08/13/1908/17/2024 THINP REP TIS PAP statement of adequacy: normal Satis facto ry for evalu ation . Endoc ervic al/tr ansfo rmati on zone compo nent prese nt. Age and/o r menst rual statu s not provi ded Not Available [address], [address], 08/17/2024 13:21:01 08/13/1908/17/2024 THINP REP TIS PAP interpretati on/result: normal Cytol ogy Resul ts: Negat francie for intra epith elial lesio n or leighton licea . Not Available [address], [address], 08/17/2024 13:21:01 08/13/1908/17/2024 THINP REP TIS PAP comment: normal This case could not be evalu ated with compu ter pillo funmi techn ology . The slide was joni chapa krystyna accor ding to luci aditi rivers . Not Available [address] [place], [address], 08/17/2024 13:21:01 08/13/1908/17/2024 THINP REP TIS PAP cytotechnolo gist: normal TLS, CT( CP) CT Scree lilo Locat ion: [place] [address] [facility] [address] Not Available [address] [address] [place], [address], 08/17/2024 13:21:01 08/13/1908/17/2024 THINP REP TIS PAP review cytotechnolo gist: normal TMK, CT( CP) CT scree lilo locat ion: [place] [address] [place] [address] Not Available [address] [address] [place], [address], 08/17/2024 13:21:01 08/13/19 25 08/17/2024 THINP REP TIS PAP comment EXPLA NATOR Y NOTE: The Pap is a scree lilo test for cervi aguilar cance r. It is not a diagn ostic test and is subje ct to false negat francie and false posit francie resul ts. It is most relia ble when a satis facto ry sampl e, regul mike obtai krystyna, is submi tted with relev ant clini aguilar findi ngs and histo ry, and when the Pap resul t is evalu ated along with histo stewart and curre nt clini aguialr infor matio n. Not Available [address] [address] [place], [address], 08/17/2024 13:21:01 09/07/1909/13/2024 TISSU E PATHO LOGY clinical information HPV DNA HR + Not Available [address] [address] [place], [address], 09/13/2024 14:06:49 09/07/1909/13/2024 TISSU E PATHO LOGY pathologist Shahram campos, D.O., Board Certi fied in Anato janneth Patho logy, Clini aguilar Patho logy and Hemat opath ology (elec troni c signa ture) Not Available [address] [address] [place], [address], 09/13/2024 14:06:49 09/07/19 25 09/13/2024 TISSU E PATHO LOGY report notes Well- contr olled p16 immun ostai n perfo rmed on parts A&B suppo rts the absen ce of high- grade dyspl richard. All posit francie and requi red negat francie contr ols stain ed appro priat miriam. This test was devel oped and its jay tical perfo rmanc e justina cteri stics have been deter mined by [facility]. It has not been clear ed or appro deidra by the U.[place] Food and Drug Admin istra tion. This assay has been valid ated pursu ant to the CLIA regul ation s and is used for clini aguilar purpo ses. Not Available [facility] [address] [address] [place], [address], 09/13/2024 14:06:49 09/07/19 25 09/13/2024 TISSU E PATHO LOGY A source Cervi x, 4 o'rosa ck, biops y Not Available [facility] [address] [address] [place], [address], 09/13/2024 14:06:49 09/07/19 25 09/13/2024 TISSU E PATHO LOGY A gross description Speci men is recei deidra in 10% neutr al buffe red forma matt, label ed with multi ple patie nt ident ifier s and consi sts of one fragm ent of tissu e measu ring 0.2 x 0.2 x 0.1 cm, irreg ular in shape and yello w-whi te in color . The speci men is entir miriam submi tted in one casse tte. 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 Acute and chron ic cervi citis with squam ous metap lasia . Trans forma tion zone not prese nt. Not Available [address] [address] [place], [address], 09/13/2024 14:06:49 09/07/19 25 09/13/2024 TISSU E PATHO LOGY B source Endoc ervix , curet tage Not Available [facility] [address] [address] [address] , [place], [address], 09/13/2024 14:06:49 09/07/19 25 09/13/2024 TISSU E PATHO LOGY B gross description Speci men is recei deidra in 10% neutr al buffe red forma matt, label ed with multi ple patie nt ident ifier s and consi sts of multi ple fragm ents of mucoi d mater ial aggre gatin g to 0.3 x 0.3 x 0.1 cm, irreg ular in shape and yello w-whi te in color . The speci men is entir miriam submi tted in one casse tte. Not Available [facility] [address] [address] [address], [place], [address], 09/13/2024 14:06:49 09/07/19 25 09/13/2024 TISSU E PATHO LOGY B diagnosis Parti cles of endoc ervix and strip s of metap lasti c squam ous epith elium with infla mmato ry atypi a; negat francie for dyspl richard. Not Available [facility] [address] [address] , [place], [address], 09/13/2024 14:06:49 09/07/19 25 09/06/2024 pregn debra test, urine HCG negati ve Not Available [facility] [address], [place], [address], 09/06/2024 17:21:42 08/01/19 25 07/28/2024 MRI, pelvi s, w/wo contr ast No observ ation record ed. [email or web address] [facility] [address] [facility], [place], [address], 08/02/2024 11:32:01 Result Notes None recorded. Problems Name Problem SNOMED Code Status Onset Date Resolution Date Notes Provider Name and Address Organization Details Recorded Time Myocardial infarction 67595820 Active 2017 Ashley nielsen null, [facility] 4 13:34:10 Atypical glandular cells on cervical Papanicolaou smear 834053950 Active 2022 Leeann Murray MD [facility] [place], [address], [employer] [facility] 3 19:20:01 Chest pain 21330127 Active 2023 Ashley nielsen null, [employer] [facility] 4 13:34:10 Cardiac enzyme or marker above reference range 800011087 Active 2023 Ashleymichoacano nielsen null, [facility] [facility] 4 13:34:10 Problem Notes None recorded. Procedures Surgical History Date Name Laterality Status Provider Name and Address Organization Details Recorded Time 09/07/19 25 Colposcopy - Cervix completed Ced Garcia MD [address] [place], [address], [facility] 09/23/2024 18:38:19 05/12/20 23 biopsy of breast completed Ashleymichoacano Snow [facility] 05/20/2024 13:39:02 04/30/20 23 Most Recent Mammogram completed Ashley [employer] [facility] 05/20/2024 13:38:24 04/10/20 23 Colposcopy - Cervix completed Leeann Murray MD [address] [place], [address], [facility] 04/10/2023 12:29:57 04/10/20 23 Endometrial Biopsy completed Leeann Murray MD [facility] [place], [address], [facility] 04/10/2023 12:30:28 03/06/20 23 Date of Last Pap Smear completed Leeann Murray MD [facility] [place], [address], [facility] 03/12/2023 12:57:10 section completed Renetta Colvin [facility] 03/06/2023 13:24:53 Imaging Results None recorded. Procedure Notes None recorded. Medical Equipment None Reported. Allergies Allergen ID Allergen Name Allergen Category Reaction Reaction Severity Criticality Documentation Date Start Date Code Code System Note Provider Name and Address Organization Details Recorded Time 828203 morphine medicatio n itching Not available Not available 03/06/20232022 7052 RxNorm [facility] 4 13:34:02 446696 Bactrim medicatio n rash Not available Not available 03/06/2023 03919 9 RxNorm Renetta Colvin [facility] 3 13:12:45 228125 adhesive tape environme nt,medica tion rash Not available low 09/30/2024 Lucina Rhodes null, [facility] 5 11:31:34 Medications Name Sig Start Date Stop Date Status Note LastModified by Organization Details LastModified Time doxycycline hyclate 100 mg capsule TAKE 1 CAPSULE BY MOUTH DAILY 03/06 completed Not Available Not Available Not Available cetirizine 10 mg tablet TAKE 1 TABLET BY MOUTH EVERY DAY active Not Available Not Available No t Available ibuprofen 800 mg tablet TAKE 1 TABLET BY MOUTH EVERY 6 TO 8 HOURS NEEDED active Not Available Not Available No t Available Lidocaine Viscous 2 % mucosal solution RINSE AND GARGLE 5 ML BY MOUTH EVERY 6 HOURS NEEDED FOR PAIN 05/20 completed Not Available Not Available Not Available fluconazole 150 mg tablet TAKE 1 TABLET BY MOUTH EVERY 72 HOURS active Not Available Not Available No t Available fluconazole 200 mg tablet TAKE 1 TABLET BY MOUTH 1 TIME. MAY REPEAT IN 3-5 DAYS NEEDED 05/20 completed Not Available Not Available Not Available carbamazepi ne ER 100 mg tablet,exte nded release,12 hr 100 mg by oral route. 05/14 completed Not Available Not Available Not Available sumatriptan 25 mg tablet 25 mg twice a day by oral route. 05/14 completed Not Available Not Available Not Available prednisone 20 mg tablet 50 mg by oral route. 05/14 completed Not Available Not Available Not Available metronidazo le 500 mg tablet TAKE 1 TABLET BY MOUTH EVERY 12 HOURS FOR 7 DAYS active Not Available Not Available No t Available acetaminoph en 500 mg tablet TAKE 1 TABLET BY MOUTH EVERY 6 TO 8 HOURS NEEDED FOR PAIN 09/30 completed Not Available Not Available Not Available amoxicillin 500 mg tablet TAKE 1 TABLET BY MOUTH THREE TIMES DAILY FOR 5 DAYS 09/06 completed Not Available Not Available Not Available oxycodone-a cetaminophe n 5 mg-325 mg tablet TAKE 1 TABLET BY MOUTH EVERY 4 HOURS NEEDED FOR PAIN 09/30 completed Not Available Not Available Not Available famotidine 20 mg tablet 08/12 completed Not Available Not Available Not Available tamsulosin 0.4 mg capsule 0.4 mg by oral route. 05/14 completed Not Available Not Available Not Available meclizine 25 mg tablet TAKE 1 TABLET BY MOUTH UP TO TWICE DAILY FOR 10 DAYS NEEDED 03/06 completed Not Available Not Available Not Available paroxetine 20 mg tablet 20 mg by oral route. 05/15 completed Not Available Not Available Not Available benztropine 1 mg tablet 1 mg by oral route. 05/14 completed Not Available Not Available Not Available hydrochloro thiazide 12.5 mg capsule TAKE 1 CAPSULE BY MOUTH EVERY DAY IN THE MORNING 03/06 completed Not Available Not Available Not Available aspirin 81 mg chewable tablet Chew 81 mg by oral route. 09/06 completed Not Available Not Available Not Available ketoconazol e 2 % topical cream APPLY TO THE AFFECTED AREAS ON THE TOENAILS DAILY 05/20 completed Not Available Not Available Not Available Paxil 10 mg tablet Take 1 tablet every day by oral route. active Not Available Not Available No t Available ondansetron 4 mg disintegrat ing tablet DISSOLVE 1 TABLET ON THE TONGUE EVERY 8 HOURS DIRECTED 03/06 completed Not Available Not Available Not Available fluticasone propionate 50 mcg/actuati on nasal spray,suspe nsion SHAKE LIQUID AND USE 1 SPRAY IN EACH NOSTRIL DAILY 09/24 completed Not Available Not Available Not Available risperidone 1 mg tablet 1 mg by oral route. 05/15 completed Not Available Not Available Not Available loratadine 10 mg tablet TAKE 1 TABLET BY MOUTH DAILY 05/20 completed Not Available Not Available Not Available risperidone 0.5 mg tablet active Not Available Not Available Not Available diazepam 5 mg tablet TAKE 1 TABLET BY MOUTH 1 HOUR BEFORE PROCEDURE 09/24 completed Not Available Not Available Not Available amoxicillin 875 mg-potassiu m clavulanate 125 mg tablet TAKE 1 TABLET BY MOUTH EVERY 12 HOURS FOR 10 DAYS 05/20 completed Not Available Not Available Not Available Ventolin HFA 90 mcg/actuati on aerosol inhaler 2 {puff}s every 6 hours by inhalatio n route. 05/14 completed Not Available Not Available Not Available chlorhexidi ne gluconate 0.12 % mouthwash RINSE AND SPIT WITH 15ML BY MOUTH TWICE DAILY AFTER BREAKFAST AND DINNER active Not Available Not Available No t Available Iron (ferrous sulfate) 08/12 completed Not Available Not Available Not Available aripiprazol e 2 mg tablet 05/20 completed Not Available Not Available Not Available ferrous sulfate 324 mg (65 mg iron) tablet,jesu yed release 324 mg by oral route. active Not Available Not Available No t Available FeroSul 325 mg (65 mg iron) tablet TAKE 1 TABLET BY MOUTH EVERY DAY 03/06 completed Not Available Not Available Not Available melatonin 5 mg tablet Take 5 mg by oral route. 05/20 completed Not Available Not Available Not Available lidocaine 2 %-glycerin mucosal kit 5 mL every 6 hours by mucous mem route. 05/14 completed Not Available Not Available Not Available Slynd 4 mg (28) tablet Take 1 tablet every day by oral route. 04/10 completed Not Available Not Available Not Available aspirin 81 mg capsule Take 1 capsule every day by oral route. 08/12 completed Not Available Not Available Not Available Vitals Date Recorded Body height Body mass index (BMI) Body weight Systolic And Diastolic Provider Name and Address Organization Details Last Updated DateTime 08/12/2024 172.72 cm 32.8 kg/m2 84523.95 g 126/88 mm[Hg] Cateranjose Jhony [facility] 08/12/2024 12:53:41 Date Recorded Body height Body mass index (BMI) Body weight Provider Name and Address Organization Details Last Updated DateTime 09/06/2024 172.72 cm 32.1 kg/m2 95265.99 g [facility] [employer] [facility] 09/06/2024 17:10:00 Date Recorded Body height Body mass index (BMI) Body weight Systolic And Diastolic Provider Name and Address Organization Details Last Updated DateTime 09/24/2024 172.72 cm 32.4 kg/m2 46644.17 g 124/90 mm[Hg] [facility] [facility] 09/24/2024 12:43:53 Date Recorded Body height Body mass index (BMI) Body weight Systolic And Diastolic Provider Name and Address Organization Details Last Updated DateTime 09/30/2024 172.72 cm 32.4 kg/m2 95077.17 g 110/70 mm[Hg] [facility] [employer] [facility] 09/30/2024 11:31:04 Date Recorded Body weight Body mass index (BMI) Body height Systolic And Diastolic Provider Name and Address Organization Details Last Updated DateTime 05/20/2024 96284.81 g 31.8 kg/m2 172.72 cm 146/106 mm[Hg] Ashley Snow [facility] [facility] 05/20/2024 13:44:57 Social History Question Answer Notes LastModified by Organizat ion Details LastModified Time Tobacco Smoking Status Former Smoker Renetta means, [facility] [facility] 03/06/2023 13:24:45 If You Are , What Was Your Level Of Alcohol Consumption Prior To ? None [email or web address] Information not available 03/06/2023 Are You Blind Or Do You Have Difficulty Seeing? No [email or web address] Information not available 03/06/2023 Are You Deaf Or Do You Have Serious Difficulty Hearing? No [email or web address] Information not available 03/06/2023 What Type Of Diet Are You Following? REGULAR Not Pork [email or web address] Information not available 03/06/2023 When Did You Quit Smoking? 1-5yearssin juanita charles [email or web address] Information not available 03/06/2023 How Many Children Do You Have? 5 1 alison Information not available 05/20/2024 What Is Your Relationship Status? Single [email or web address] Information not available 03/06/2023 Are You Sexually Active? Yes [email or web address] Information not available 03/06/2023 How Many Years Have You Smoked Tobacco? 20 [email or web address] Information not available 03/06/2023 Sex: Unknown Functional Status Question Answer Note LastModified by [employer] ion Details LastModified Time Do you use any illicit or recreational drugs? No [email or web address] Information not available 03/06/2023 Do you or have you ever used any other forms of tobacco or nicotine? No [email or web address] Information not available 03/06/2023 What is your level of alcohol consumption? None [email or web address] Information not available 03/06/2023 Are you currently employed? No [email or web address] Information not available 03/06/2023 Mental Status None recorded. Family History Relationship Description Onset Age of this Age Resolved Age Notes LastModified by Organization Details LastModified Time Father No current problems or disability [email or web address] Not available 03/26 12:31:48 Mother No current problems or disability [email or web address] Not available 03/26 12:31:48 Medical History Condition Response High Blood Pressure N Cytomegalovirus N Hyperthyroidism N MRSA N Blood Transfusion N Depression N Incontinence N Anxiety Disorder N Autoimmune disease N Arthritis N Infertility N Polycystic Ovarian Syndrome N Hematuria N Varicosities N Stroke N Seasonal allergies N Crohn's Disease N Alzheimer's/Dementia N COPD/Emphysema N History of Abnormal Pap N Fibromyalgia N Kidney Infection N Kidney Disease N Gallbladder disease N Von Willebrand disease N Eating Disorder N Diabetes Mellitus (non-insulin dependent ) N Ovarian Problems N Frequent Urinary Tract infections N Osteopenia N GERD (reflux) N Diabetes (insulin dependent) N Heart Attack N Asthma N Endometrial Cancer N Hepatitis N Pulmonary Embolism N RPR N Chicken Pox N Other Cancer N Colon Cancer N Herpes (HSV) N Breast Cancer N Lung Cancer N Hypothyroidism N Panic Attacks N Neurological Disorder N Deep Vein Thrombosis N Shingles N Tuberculosis/Positive PPD N Cervical Cancer N Chlamydia N Endometriosis N HPV/Genital Warts N IBS (Irritable Bowel Syndrome) N High Cholesterol N Liver Disease N Ulcer N HIV N Sickle Cell Disease/Trait N ADD/ADHD N Anemia N Multiple Sclerosis N Gonorrhea N Headaches/migraines N Ovarian Cancer N Seizures/Epilepsy N Breast Problems N Fibroids N Lupus N Rubella N Blood Clotting Disorder N Bipolar Disorder N Diabetes Mellitus (during ) N Ulcerative Colitis N Heart Disease N Osteoporosis N Gynecological History Statement/Question Response Flow Moderate Date of last HPV 03/06/2023 Date of LMP 08/23/2024 Duration of Flow (days) 4 Most Recent Mammogram 04/30/2023 Current Control Method Other Age at Menarche 14 Date of Last Colonoscopy Most Recent Bone Density Frequency of Cycle (Q days) 28 Date of Last Pap Smear 03/06/2023 Obstetrics History GPAL:G 7 P 6 0 1 5 Type Value Full Term 6 Living 5 Ectopics 1 Total 7 Past Encounters Encounter ID Performer Location Encounter Start Date Encounter Closed Date Diagnosis/Indication Diagnosis SNOMED-CT Code Diagnosis ICD10 Code Diagnosis IMO Codes Diagnosis Note [id number] Leeann Murray MD [facility] [address] [place] [address] 03/06/2023 12:58:04 03/07/2023 12:20:19 Gynecologic examination 68775892 Z01.419 Screening for malignant neoplasm of cervix 921582587 Z12.4 Screening for malignant neoplasm of breast 631247808 Z12.39 Screening colonoscopy 44 0153038 Z12.11 Depression screening 171 155486 Z13.31 Irregular periods 834942 07 N92.6 Surveillan ce of contraception 062880093 Z30.40 Desires sterilizat ion. Patient desires sterilizat ion. We discussed options for procedure including cauterizat ion, ligation with band or clip, partial salpingect maribel and total salpingect maribel. After a review of the risks and benefits, patient desires the least chance of failure. She understand s that this procedure is permanent and can never be reversed. Should she desire in the future, IVF would be required. Patient would like to proceed with LSC Bilateral Salpingect maribel for sterilizat ion purposes. We reviewed the risks of the procedure including but not limted to bleeding, infection, injury, and She has elected to proceed. POP until then. [id number] GIGI CUEVAS [facility] [address] [place] [address] 03/26/2023 12:16:43 03/26/2023 17:58:39 Discharge from nipple 74405781 N64.52 -The appearance of the discharge (bloody versus nonbloody) -Happening periodical ly- Tubal at beginning of year.-Spon taneous, feels cool sensation and is wet. Does not notice blood on her clothes, but is unsure of exact color.-dis charge is unilateral -A history of recent trauma-Den ies-Denies recent onset of amenorrhea or other symptoms of hypogonadi sm (hot flashes, vaginal dryness) should prompt considerat ion of hyperprola ctinemia.- Several classes of medication s can cause hyperprola ctinemia. Anticoagul ants can cause blood nipple discharge in patients who sustain trauma to the breasts, even that as mild as mammograph ic manipulati on. -Discussed with patient hormones, or sexual arousal can be normal causes for nipple discharge. Abnormal causes could be from tumors, infection or rarely, breast cancer.-Di scussed with patient that physiologi c nipple discharge is usually bilateral and multiducta l and occurs with breast manipulati on. Conversely , the risk of cancer is higher when the discharge is spontaneou s, bloody, unilateral , uniductal, associated with a breast mass, and/or occurs in a woman over 40 years of age.-Discu ssed idiopathic galactorrh ea, and it may just mean that your breast tissue is particular ly sensitive to the milk-produ cing hormone prolactin in your blood. POC:Prolac tin levelRevie w medication sOrder diagnostic mammogram/ breast [id number] Leeann Murray MD [facility] [address] [place] [address] 04/10/2023 11:42:03 04/10/2023 14:14:21 Atypical glandular cells on cervical Papanicolaou smear 334921251 R87.932 [id number] MIRIAM DICKINSON, CLOTHES SHAKER [facility] [address] [place] [address] 05/20/2024 13:21:16 05/24/2024 10:59:57 Hydrosalpinx 95197185 N70.11 14188 -05/11 ER visit showed 4.2cm tubular structure in left adnexa per CT. Structure was also noted in 09/[address], but has progressed in size. Recommende d MRI follow up.-Pt was admitted hospital 05/15 due to elevated troponin and was told it was recommende d for patient to get biopsy of mass in left adnexa.-La st pap 03/06/2023 showed AGC, HPV neg. Colpo and EMB was benign. Patient was scheduled for hysterosco py and D&C in May 2023 and no showed surgery. Patient states she was having trouble with car and could not get up there.-I have reviewed CT scan and discussed with patient. No longer bleeding or pelvic pain.-Will get MRI as recommende d, patient will call to schedule a follow up appointmen t with MD after MRI scheduled to go over results.-N o family hx of ovarian or endometria l cancer.-CA -125 today-Shell ent will also need pap smear updated-Bertram cutler is interested in hysterecto my due to bleeding issues causing her to be anemic. Greater than thirty minutes spent with patient in consultati on (>50% face-to-fa ce). Patient labs and notes were reviewed. Patient questions were answered. Additional patient care was coordinate d. Vaginal discharge 476031 006 N89.8 N76.0 Pt educated on exam findings, and discussed POC. Vaginal cx collected and sent. Discussed use of boric acid suppositor ies to help alleviate symptoms. 1 vaginal suppositor y at bedtime 3 nights in a row. Pt advised to avoid fragrant soaps/laun dry detergents , use of baking soda soaks, having partner change soaps, etc. Further POC pending lab result review. [id number] Leeann Murray MD [facility] [address] [place] [address] 08/12/2024 12:33:11 08/12/2024 15:18:33 Hydrosalpinx 18499291 N70.11 [id number] Patient at the very least needs a Laparoscop y to remove her hydrosalpi nx. I have suggested that she also have sterilizat ion procedure given her age and need for contracept ion. She has agreed to this. We will also plan to evaluate the endometria l cavity to follow up on the plan from last year that was never followed through on. - Operative laparoscop y with bilateral salpingect maribel/Dx [facility]/D&C Cancer cer vix screening status 630269481 Z12.4 509760 Menometrorrhagia 5972033 08 N92.1 18611 [id number] Ced Garcia MD [facility] [address] [place] [address] 09/06/2024 16:55:38 09/24/2024 15:40:44 Human papillomavirus deoxyribonucleic acid detected, high risk on cervical specimen 600969980 R87.810 Abnormal f inding on evaluation procedure 380044595 R87.811 Secondary dysmenorrhea 65163552 N94.5 521300 Atypical g landular cells on cervical Papanicolaou smear 745143469 R87.619 [id number] discussed w/[facility] and hx cheri and enlarged uterus will proceed with laparoscop ic BS and leep and dna dc and hysterosco py Pelvic mass 75629530 R19 .00 3320194 Enlarged uterus 92375629 4 N85.2 58368 Subserous leiomyoma of uterus 03866794 D25.2 348423 Submucous leiomyoma of uterus 50563665 D25.0 652051 on mri [id number] Gely Walker CNM [facility] [address] [place] [address] 09/24/2024 12:28:40 09/24/2024 14:08:09 Vaginal odor 429270610 N89.8 206059 - Avoid all over the counter creams or ointments, except A&D Ointment (if you have wool allergy do not use A&D).-DO NOT DOUCHE. Baking soda soaks will help rinse away extra discharge and help with odor.-DO NOT SHAVE, wax or laser the vulvar area (the bikini line is ok). -Can use OTC boric acid capsules to control odor [id number] Leeann Murray MD [facility] [address] [place] [address] 09/30/2024 11:16:01 09/30/2024 11:59:11 Postoperative visit 168559941 Z09 Discussed postoperat francie pathology with patient. Reviewed Surgical findings. Patient instructed that she may return to routine activities . All of her questions were answered. 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 The patient was initially evaluated by GIGI Cuevas, who completed the history examinatio n, and preliminar y assessment . I, Leeann Murray MD, entered the room to review and discuss the care plan with the patient. After reviewing the specific findings and documentat ion provided by Miriam, I confirmed the diagnosis and care plan, addressing any additional concerns or questions raised by the patient. The final plan of care was developed collaborat randy and has been documented accordingl y. Health Concerns Section Related Observation LastModified by Organization Detai ls LastModified Time None Recorded Concern Status LastModified by Organization Details LastModified Time None Recorded Advance Directives Directive None Recorded Payers Insurance Date Sequence Insurance Name Policy Number Policy Esquivel Covered Member ID Esquivel Member ID Guarantor Name 11/14/2024 1 [facility] (MEDICAID HMO) [id number] Angelita Medina [id number] Angelita Medina 03/06/2023 1 [place] Angelita Medina [id number] Angelita Medina Notes Date Note Type Note Provider Name and Address Organization Details Recorded Time 05/20/2024 text/html ROS as noted in the HPI Patient is here for hospital follow up due to vaginal bleeding between cycles. Pt had decreased hemoglobin from the bleeding. This led to elevated troponins and chest pain. Patient was ruled out for NSTEMI with cardiac cath and was told it was from anemia due to the vaginal bleeding. It was determined that she also had an ovarian cyst rupture and a mass in her left tube. Patient states that she is no longer bleeding or having any pain. She does notice bloating and fatigue. Pt also reports no increase in vaginal discharge, itching or pain. Patient has noticed an odor. Pt has noticed this for the past x 3 days. Pt declines STD screening via culture and serum testing. Pt has no other concerns. MIRIAM DICKINSON, GIGI [facility], [place], [phone], [facility] [employer] 05/21/2024 13:42:30 08/12/2024 text/html Angelita is a 48 y/o female. LMP 5-4-25. Last PAP 2022. Pt is here to f/u on her MRI done at [facility] for a pelvic mass. Angelita is a 48 y/o female with recurrent pelvic pain who was diagnosed with a hydrosalpinx on the left after presenting to the ER for pain. She does have a history of ectopic approximately 2 years ago that was treated with methotrexate. She recently underwent MRI to fully characterize the hydrosalpinx and she is here for follow up today. She also has a history of heavy periods and was scheduled to undergo a hysteroscopy/D&C. She cancelled at the last minute due to transportation issues. Leeann Murray MD [address] [place] [address], [phone], [facility] [employer] 08/15/2024 08:10:49 09/06/2024 text/html ROS as noted in the HPI The patient verbally consented to documentation via virtual scribe for this encounter. Angelita is a 48-year-old female who presents today for colposcopy. She had an CHERI Pap smear in 2022 with a negative endometrial biopsy and then positive for high risk HPV. Ced Garcia MD [address] [place] [address], [phone], [facility] [employer] 09/23/2024 18:38:38 09/24/2024 text/html Angelita c/o vaginal odor and dark black blood discharge. She had surgery on 09/05/[address] Murray a bilateral scalpectomy. She has post op visit on 09/30/[address] Murray. Gely Walker CNM [address] [place] [address], [phone], [facility] [employer] 09/26/2024 09:11:12 09/30/2024 text/html Post-OpReported by PatientHPIFor associated symptoms, patient reportsincision healing well,no fatigue,normal appetite,normal bowel function,no constipation,no nausea,no emesis,pain improving,no pain,no fever,no bleeding,no lower extremity edema/pain, andno dysuria/urinary symptoms. For onset/timing, (09/16/2023).ROS as noted in the HPI Angelita is here for a post op visit. She was seen in the urgent care Friday09/24/2024. Her c/o was vaginal odor. She was given some antibiotics by Gely. Leeann Murray MD [address] [facility], [place], [phone], [facility] [employer] [facility] 10/04/2024 21:14:01 OBGyn Episode Ob Episode Information Episode Created Date Number of Fetuses Patient Bloodtype Patient rh Status Prepregnancy Weight lbs Domestic Partner Domestic Partner Phone Father Name Mosaic Tiler Status 03/06/20 1 CLOSED Fetus Data First Name Last Name Admitted to NICU Weight (g) Sex Living Outcome Pediatric Complications Fetus ID Race Codes Race Delivery Type F Full Term [id number] Gabe Calculation Initial Gabe Date Initial Exam Date Initial Exam Provider Initial Ultrasound Date Last Menstrual Period Date Ultra Sound Weeks Gestation 0 Eighteen To Twenty Week Gabe Update Ultra Sound Date Fundal Height At Umbil Quickening Date Ultra Sound Latest Weeks Gestation Final Gabe Confirmed By Final Gabe Confirmed Date Final Gabe Date Ultra Sound Latest Days Gestation 0 0 Menstrual History Last Menstrual Date Menses Monthly On Bcp Conception Prior Menses Frequency Hcg Plus Date Menarche Onset Age Delivery Information Delivery Date Delivery Type Labor Anesthesia Weeks Gestation Incision Type Labor Labor Length Hrs Delivered By Post Complications Tubal Sterilization Discharge Date Comments 0 39 [place] Discharge Information Feeding Method Contraceptive Method Maternal HG B and HCT Levels Ob Episode Information Episode Created Date Number of Fetuses Patient Bloodtype Patient rh Status Prepregnancy Weight lbs Domestic Partner Domestic Partner Phone Father Name Mosaic Tiler Status 03/06/20 1 CLOSED Fetus Data First Name Last Name Admitted to NICU Weight (g) Sex Living Outcome Pediatric Complications Fetus ID Race Codes Race Delivery Type F Full Term [id number] Gabe Calculation Initial Gabe Date Initial Exam Date Initial Exam Provider Initial Ultrasound Date Last Menstrual Period Date Ultra Sound Weeks Gestation 0 Eighteen To Twenty Week Gabe Update Ultra Sound Date Fundal Height At Umbil Quickening Date Ultra Sound Latest Weeks Gestation Final Gabe Confirmed By Final Gabe Confirmed Date Final Gabe Date Ultra Sound Latest Days Gestation 0 0 Menstrual History Last Menstrual Date Menses Monthly On Bcp Conception Prior Menses Frequency Hcg Plus Date Menarche Onset Age Delivery Information Delivery Date Delivery Type Labor Anesthesia Weeks Gestation Incision Type Labor Labor Length Hrs Delivered By Post Complications Tubal Sterilization Discharge Date Comments 2 40 Discharge Information Feeding Method Contraceptive Method Maternal HG B and HCT Levels Ob Episode Information Episode Created Date Number of Fetuses Patient Bloodtype Patient rh Status Prepregnancy Weight lbs Domestic Partner Domestic Partner Phone Father Name Mosaic Tiler Status 03/06/20 23 1 CLOSED Fetus Data First Name Last Name Admitted to NICU Weight (g) Sex Living Outcome Pediatric Complications Fetus ID Race Codes Race Delivery Type F Full Term [id number] Gabe Calculation Initial Gabe Date Initial Exam Date Initial Exam Provider Initial Ultrasound Date Last Menstrual Period Date Ultra Sound Weeks Gestation 0 Eighteen To Twenty Week Gabe Update Ultra Sound Date Fundal Height At Umbil Quickening Date Ultra Sound Latest Weeks Gestation Final Gabe Confirmed By Final Gabe Confirmed Date Final Gabe Date Ultra Sound Latest Days Gestation 0 0 Menstrual History Last Menstrual Date Menses Monthly On Bcp Conception Prior Menses Frequency Hcg Plus Date Menarche Onset Age Delivery Information Delivery Date Delivery Type Labor Anesthesia Weeks Gestation Incision Type Labor Labor Length Hrs Delivered By Post Complications Tubal Sterilization Discharge Date Comments 5 39 [place] Discharge Information Feeding Method Contraceptive Method Maternal HG B and HCT Levels Ob Episode Information Episode Created Date Number of Fetuses Patient Bloodtype Patient rh Status Prepregnancy Weight lbs Domestic Partner Domestic Partner Phone Father Name Mosaic Tiler Status 03/06/20 23 1 CLOSED Fetus Data First Name Last Name Admitted to NICU Weight (g) Sex Living Outcome Pediatric Complications Fetus ID Race Codes Race Delivery Type F Full Term [id number] Gabe Calculation Initial Gabe Date Initial Exam Date Initial Exam Provider Initial Ultrasound Date Last Menstrual Period Date Ultra Sound Weeks Gestation 0 Eighteen To Twenty Week Gabe Update Ultra Sound Date Fundal Height At Umbil Quickening Date Ultra Sound Latest Weeks Gestation Final Gabe Confirmed By Final Gabe Confirmed Date Final Gabe Date Ultra Sound Latest Days Gestation 0 0 Menstrual History Last Menstrual Date Menses Monthly On Bcp Conception Prior Menses Frequency Hcg Plus Date Menarche Onset Age Delivery Information Delivery Date Delivery Type Labor Anesthesia Weeks Gestation Incision Type Labor Labor Length Hrs Delivered By Post Complications Tubal Sterilization Discharge Date Comments 0 39 [place] Discharge Information Feeding Method Contraceptive Method Maternal HG B and HCT Levels Ob Episode Information Episode Created Date Number of Fetuses Patient Bloodtype Patient rh Status Prepregnancy Weight lbs Domestic Partner Domestic Partner Phone Father Name Mosaic Tiler Status 03/06/20 1 CLOSED Fetus Data First Name Last Name Admitted to NICU Weight (g) Sex Living Outcome Pediatric Complications Fetus ID Race Codes Race Delivery Type Ectopic [id number] Gabe Calculation Initial Gabe Date Initial Exam Date Initial Exam Provider Initial Ultrasound Date Last Menstrual Period Date Ultra Sound Weeks Gestation 0 Eighteen To Twenty Week Gabe Update Ultra Sound Date Fundal Height At Umbil Quickening Date Ultra Sound Latest Weeks Gestation Final Gabe Confirmed By Final Gabe Confirmed Date Final Gabe Date Ultra Sound Latest Days Gestation 0 0 Menstrual History Last Menstrual Date Menses Monthly On Bcp Conception Prior Menses Frequency Hcg Plus Date Menarche Onset Age Delivery Information Delivery Date Delivery Type Labor Anesthesia Weeks Gestation Incision Type Labor Labor Length Hrs Delivered By Post Complications Tubal Sterilization Discharge Date Comments 2 Discharge Information Feeding Method Contraceptive Method Maternal HG B and HCT Levels Ob Episode Information Episode Created Date Number of Fetuses Patient Bloodtype Patient rh Status Prepregnancy Weight lbs Domestic Partner Domestic Partner Phone Father Name Mosaic Tiler Status 03/06/20 1 CLOSED Fetus Data First Name Last Name Admitted to NICU Weight (g) Sex Living Outcome Pediatric Complications Fetus ID Race Codes Race Delivery Type F Full Term [id number] Primary Gabe Calculation Initial Gabe Date Initial Exam Date Initial Exam Provider Initial Ultrasound Date Last Menstrual Period Date Ultra Sound Weeks Gestation 0 Eighteen To Twenty Week Gabe Update Ultra Sound Date Fundal Height At Umbil Quickening Date Ultra Sound Latest Weeks Gestation Final Gabe Confirmed By Final Gabe Confirmed Date Final Gabe Date Ultra Sound Latest Days Gestation 0 0 Menstrual History Last Menstrual Date Menses Monthly On Bcp Conception Prior Menses Frequency Hcg Plus Date Menarche Onset Age Delivery Information Delivery Date Delivery Type Labor Anesthesia Weeks Gestation Incision Type Labor Labor Length Hrs Delivered By Post Complications Tubal Sterilization Discharge Date Comments 8 39 [place], [place] Discharge Information Feeding Method Contraceptive Method Maternal HG B and HCT Levels Ob Episode Information Episode Created Date Number of Fetuses Patient Bloodtype Patient rh Status Prepregnancy Weight lbs Domestic Partner Domestic Partner Phone Father Name Mosaic Tiler Status 03/06/20 23 1 CLOSED Fetus Data First Name Last Name Admitted to NICU Weight (g) Sex Living Outcome Pediatric Complications Fetus ID Race Codes Race Delivery Type F Full Term [id number] Gabe Calculation Initial Gabe Date Initial Exam Date Initial Exam Provider Initial Ultrasound Date Last Menstrual Period Date Ultra Sound Weeks Gestation 0 Eighteen To Twenty Week Gabe Update Ultra Sound Date Fundal Height At Umbil Quickening Date Ultra Sound Latest Weeks Gestation Final Gabe Confirmed By Final Gabe Confirmed Date Final Gabe Date Ultra Sound Latest Days Gestation 0 0 Menstrual History Last Menstrual Date Menses Monthly On Bcp Conception Prior Menses Frequency Hcg Plus Date Menarche Onset Age Delivery Information Delivery Date Delivery Type Labor Anesthesia Weeks Gestation Incision Type Labor Labor Length Hrs Delivered By Post Complications Tubal Sterilization Discharge Date Comments 9 39 [place], [place] Discharge Information Feeding Method Contraceptive Method Maternal HG B and HCT Levels
--- OUTSIDE RECORDS SUMMARY | 2025-03-15 19:02 | XMS_ITS | Data Portability ---
Author Organization [place] - [facility] [employer] [facility], Main Office Address [address] [place] [address] Assessment Encounter Date Assessment Date Assessment LastModified by Organization Details LastModified Time 12/06/2024 12/06/2024 This note is dictated and transcribed by [employer]. Lie Detector Operator variances may occur. Despite proofreading, typographical errors may occur. Occasional wrong-word or 'hpyvz-d-nfrt' substitutions may have occurred due to the inherent limitations of voice recording. Read the chart carefully and recognize, using context, where substitutions have occurred. Not available 12/13/2024 09:14:26 12/13/2024 12/13/2024 This note is dictated and transcribed by [employer]. Lie Detector Operator variances may occur. Despite proofreading, typographical errors may occur. Occasional wrong-word or 'wlsce-o-gpey' substitutions may have occurred due to the inherent limitations of voice recording. Read the chart carefully and recognize, using context, where substitutions have occurred. This note is dictated and transcribed by [employer]. Lie Detector Operator variances may occur. Despite proofreading, typographical errors may occur. Occasional wrong-word or 'digky-b-tlsn' substitutions may have occurred due to the inherent limitations of voice recording. Read the chart carefully and recognize, using context, where substitutions have occurred. Not available 12/13/2024 11:06:03 12/20/2024 12/20/2024 This note is dictated and transcribed by [employer]. Lie Detector Operator variances may occur. Despite proofreading, typographical errors may occur. Occasional wrong-word or 'mneit-d-wlrf' substitutions may have occurred due to the inherent limitations of voice recording. Read the chart carefully and recognize, using context, where substitutions have occurred. [email or web address] Not available 12/20/2024 12:40:09 01/10/2025 01/10/2025 This note is dictated and transcribed by [employer]. Lie Detector Operator variances may occur. Despite proofreading, typographical errors may occur. Occasional wrong-word or 'vlujn-b-nlze' substitutions may have occurred due to the inherent limitations of voice recording. Read the chart carefully and recognize, using context, where substitutions have occurred. [email or web address] Not available 01/20/2025 11:27:35 Plan of Treatment Reminders Order Date Submit Date Provider Last Modified By Organization Details Last Modified Time Details Appointments Procedure 15 2024 10:00A M Rohan Merida DPM Not available Not available Not available Lab None recorded. Referral None recorded. Procedures None recorded. Surgeries None recorded. Imaging XR, foot, 3 or more view 2024 025 [email or web address] [facility] Brendon Nelson, [address], [place], [address], 12/13/2024 11:08:26 Medication Orders None recorded. Patient TargetsNo targets recorded. Patient InstructionsNo instructions recorded. Reason for Referral None Reported. Results Created Date Observation Date Name Description Value Unit Range Abnormal Flag Note LastModifiedBy Organization Detail LastModifiedTime 12/14/19 25 XR, foot, 3 or more view No observ ation record ed. [email or web address] [facility] Brendon Nelson [address], [place], [address], 12/13/2024 11:08:24 Result Notes None recorded. Problems Name Problem SNOMED Code Status Onset Date Resolution Date Notes Provider Name and Address Organization Details Recorded Time Hypertensi ve disorder 32750858 Active Not Available [employer] 3 22:04:31 Metatarsal louis 58296041 Active 2019 Not Available [facility] 3 22:04:30 Hammer toe 701763703 Active 2019 Not Available [facility] 3 22:04:30 Bunion 372973065 Active 2019 Not Available [facility] 3 22:04:31 Postoperat francie visit 778048415 Active 2019 Not Available [facility] 3 22:04:31 Pain in left foot 6384463243718 07 Active 2020 Not Available [facility] 3 22:04:31 Postoperat francie pain 811612416 Active 2020 Not Available [facility] 3 22:04:31 Dry skin dermatitis 759423211 Active 2020 Not Available [facility] 3 22:04:31 Onychomyco sis of toenails 709312991 Active 2023 Rohan Merida DPM [address], [place], [address] , [employer] 4 11:13:56 Hammer toe 702546648 Active 2023 Rohan Merida DPM [address], [place], [address] , [employer] 4 17:39:35 Problem Notes None recorded. Procedures Surgical History Date Name Laterality Status Provider Name and Address Organization Details Recorded Time 5 Suture Removal completed Rohan Merida DPM [address], [place], [address], [employer] 12/20/2024 12:39:47 4 Toenail avulsion completed Rohan Merida DPM [address], [address], [place], [address], [employer] 12/24/2023 12:58:05 Imaging Results None recorded. Procedure Notes None recorded. Medical Equipment None Reported. Allergies Allergen ID Allergen Name Allergen Category Reaction Reaction Severity Criticality Documentation Date Start Date Code Code System Note Provider Name and Address Organization Details Recorded Time 87268 acetamino phen / hydrocodo ne medicatio n itching moderate Not available 12/24/2023 10099 2 RxNorm Becky Almanzar RN [facility], [employer] [facility] [employer] 4 12:57:26 60269 morphine medicatio n itching moderate Not available 12/24/2023 7052 RxNorm Becky Almanzar RN null, [place] [facility] [employer] [facility] 12:57:46 Medications Name Sig Start Date Stop Date Status Note LastModified by Organization Details LastModified Time amoxicillin 500 mg capsule TAKE 1 CAPSULE BY MOUTH TWICE DAILY 12/03 completed Not Available Not Available Not Available doxycycline hyclate 100 mg capsule TAKE 1 CAPSULE BY MOUTH DAILY 12/03 completed Not Available Not Available Not Available ammonium lactate 12 % lotion APPLY EXTERNALL Y TO BOTH FEET TWICE DAILY NEEDED 12/03 completed Not Available Not Available Not Available loperamide 2 mg capsule 12/03 completed Not Available Not Available Not Available cetirizine 10 mg tablet TAKE 1 TABLET BY MOUTH EVERY DAY 12/03 completed Not Available Not Available Not Available ibuprofen 800 mg tablet TAKE 1 TABLET BY MOUTH EVERY 6 TO 8 HOURS NEEDED active Not Available Not Available No t Available Lidocaine Viscous 2 % mucosal solution RINSE AND GARGLE 5 ML BY MOUTH EVERY 6 HOURS NEEDED FOR PAIN active Not Available Not Available No t Available fluconazole 150 mg tablet TAKE 1 TABLET BY MOUTH EVERY 72 HOURS active Not Available Not Available No t Available ketotifen 0.025 % (0.035 %) eye drops INSTILL 1 DROP IN BOTH EYES TWICE DAILY 12/03 completed Not Available Not Available Not Available hydrocodone 5 mg-acetamin ophen 325 mg tablet Take 1 tablet every 8 hours by oral route as needed for 7 days. 12/03 completed Not Available Not Available Not Available fluconazole 200 mg tablet TAKE 1 TABLET BY MOUTH 1 TIME. MAY REPEAT IN 3-5 DAYS NEEDED active Not Available Not Available No t Available carbamazepi ne ER 100 mg tablet,exte nded release,12 hr 12/03 completed Not Available Not Available Not Available terconazole 0.8 % vaginal cream INSERT 1 APPLICATO RFUL VAGINALLY QHS FOR 3 DAYS 12/03 completed Not Available Not Available Not Available amlodipine 2.5 mg tablet 12/03 completed Not Available Not Available Not Available metronidazo le 500 mg tablet TAKE 1 TABLET BY MOUTH EVERY 12 HOURS FOR 7 DAYS active Not Available Not Available No t Available tramadol 50 mg tablet TAKE 2 TABLETS BY MOUTH EVERY 6 HOURS NEEDED FOR PAIN active Not Available Not Available No t Available acetaminoph en 500 mg tablet TAKE 1 TABLET BY MOUTH EVERY 6 TO 8 HOURS NEEDED FOR PAIN active Not Available Not Available No t Available triamcinolo ne acetonide 0.1 % topical cream APPLY TOPICALLY TO FEET DAILY NEEDED 12/03 completed Not Available Not Available Not Available amoxicillin 500 mg tablet TAKE 1 TABLET BY MOUTH THREE TIMES DAILY FOR 5 DAYS active Not Available Not Available No t Available risperidone 2 mg tablet 12/03 completed Not Available Not Available Not Available oxycodone-a cetaminophe n 5 mg-325 mg tablet TAKE 1 TABLET BY MOUTH EVERY 4 HOURS NEEDED FOR PAIN active Not Available Not Available No t Available famotidine 20 mg tablet active Not Available Not Available Not Available tamsulosin 0.4 mg capsule TAKE 1 CAPSULE BY MOUTH DAILY active Not Available Not Available No t Available paroxetine 20 mg tablet active Not Available Not Available Not Available benztropine 1 mg tablet 12/03 completed Not Available Not Available Not Available hydrochloro thiazide 12.5 mg capsule TAKE 1 CAPSULE PO QAM 12/03 completed Not Available Not Available Not Available gabapentin 300 mg capsule 12/03 completed Not Available Not Available Not Available aspirin 81 mg chewable tablet active Not Available Not Available Not Available azelastine 137 mcg (0.1 %) nasal spray USE 2 SPRAYS IN EACH NOSTRIL TWICE DAILY 12/03 completed Not Available Not Available Not Available albuterol sulfate HFA 90 mcg/actuati on aerosol inhaler INHALE 1 PUFF BY MOUTH EVERY 4 HOURS NEEDED 12/03 completed Not Available Not Available Not Available ketoconazol e 2 % topical cream APPLY TO THE AFFECTED AREAS ON THE TOENAILS DAILY active Not Available Not Available No t Available fluticasone propionate 50 mcg/actuati on nasal spray,suspe nsion SHAKE LIQUID AND USE 1 SPRAY IN EACH NOSTRIL DAILY active Not Available Not Available No t Available risperidone 1 mg tablet active Not Available Not Available Not Available loratadine 10 mg tablet TAKE 1 TABLET BY MOUTH DAILY active Not Available Not Available No t Available diazepam 5 mg tablet TAKE 1 TABLET BY MOUTH 1 HOUR BEFORE PROCEDURE active Not Available Not Available No t Available amoxicillin 875 mg-potassiu m clavulanate 125 mg tablet TAKE 1 TABLET BY MOUTH EVERY 12 HOURS FOR 10 DAYS 12/03 completed Not Available Not Available Not Available chlorhexidi ne gluconate 0.12 % mouthwash RINSE AND SPIT WITH 15ML BY MOUTH TWICE DAILY AFTER BREAKFAST AND DINNER active Not Available Not Available No t Available aripiprazol e 2 mg tablet 12/23 completed Not Available Not Available Not Available ferrous sulfate 324 mg (65 mg iron) tablet,jesu yed release active Not Available Not Available Not Available Vitals Date Recorded Body height Body mass index (BMI) Body weight Heart rate Respiratory rate Oxygen saturation Oxygen saturation in Arterial blood by Pulse oximetry Systolic And Diastolic Provider Name and Address Organization Details Last Updated DateTime 172.72 cm 33.5 kg/m2 85839.3 2 g 87 /min 14 /min 98 % 98 % 174/108 mm[Hg] Dayana [employer] [facility] [employer] 10:11:38 Date Recorded Body height Body mass index (BMI) Body weight Provider Name and Address Organization Details Last Updated DateTime 12/13/2024 172.72 cm 33.5 kg/m2 35222.32 g Dayana Mosher [employer] 12/13/2024 10:02:00 Date Recorded Body height Body mass index (BMI) Body weight Heart rate Body temperature Oxygen saturation Oxygen saturation in Arterial blood by Pulse oximetry Systolic And Diastolic Provider Name and Address Organization Details Last Updated DateTime 5 172.72 cm 33.5 kg/m2 15789.3 2 g 84 /min 98.2 [degF] 99 % 99 % 153/108 mm[Hg] Jett Alvarez Leoncio [employer] [facility] [employer] [facility] 5 12:07:46 Date Recorded Body height Body mass index (BMI) Body weight Provider Name and Address Organization Details Last Updated DateTime 01/10/2025 172.72 cm 33.5 kg/m2 35301.32 g Jett Alvarez Leoncio [employer] [facility] [employer] [facility] 01/10/2025 12:09:29 Date Recorded Body height Body mass index (BMI) Body weight Oxygen saturation Oxygen saturation in Arterial blood by Pulse oximetry Body temperature Heart rate Systolic And Diastolic Provider Name and Address Organization Details Last Updated DateTime 5 172.72 cm 33.5 kg/m2 29360.3 2 g 96 % 96 % 98.2 [degF] 83 /min 140/97 mm[Hg] ASTRID Robins [place] [employer] [facility] 12:22:45 Social History Question Answer Notes LastModified by Organizat ion Details LastModified Time Tobacco Smoking Status Former Smoker Not Available [facility] 07/24/2022 22:04:08 What Was The Date Of Your Most Recent Tobacco Screening? 01/10/2025 [email or web address] Information not available 01/10/2025 Sex: Unknown Functional Status None recorded. Mental Status None recorded. Family History Relationship Description Onset Age of this Age Resolved Age Notes LastModified by Organization Details LastModified Time Father Heart disease [email or web address] Not available 12/2023 11:02:07 Medical History Condition Response BACK INJECTIONS N ALLERGIES/HAYFEVER N LUNG DISEASE/DISORDER N INSOMNIA N HISTORY OF DRUG ABUSE N ESRD N RADIATION / CHEMOTHERAPY N COPD N RHEUMATOID ARTHRITIS N HIGH CHOLESTEROL / HYPERLIPIDEMIA N PVD N EDEMA N CAROTID BLOCKAGE N SHINGLES N DEPRESSION (INCLUDING POST ) N BOWEL PROBLEMS N BACK / NECK PROBLEMS N HAVE YOU BEEN HOSPITALIZED OR SEEN IN [facility] ER IN THE PAST YEAR ? N FAILED BACK SYNDROME N STROKE/TIA N THYROID DISEASE N LYMPHEDEMA N TB SKIN TEST N POLYCYSTIC OVARIES N OBESITY N HISTORY WITH COMPLICATIONS WITH ANESTHES IA ? N ANEURYSM N FIBROMYALGIA N OSTEOPOROSIS N URINARY/BLADDER/KIDNEY PROBLEMS N CORONARY ARTERY DISEASE (CAD) N Do you have Advance directive? N ARTHRITIS N Do you have a healthcare POA? N RESPIRATORY PROBLEMS N USE OF BLOOD THINNERS N NO SIGNIFICANT PAST MEDICAL HISTORY N DIABETES, TYPE N VON WILLIBRAND'S DISEASE N PERIPHERAL VASCULAR DISEASE N PERIPHERAL ARTERY DISEASE N HEARTBURN / REFLUX N AFIB N Do you have a living will? N BLOOD CLOTS N POST LAMINECTOMY SYNDROME N HEPATITIS / LIVER DISEASE N PULMONARY DISEASE N USE OF NSAIDS N GOUT N ALZHEIMER'S DISEASE N PAIN N ARTERIAL INSUFFICIENCY N SEIZURES/EPILEPSY N HEADACHES/MIGRAINES N CHF N VASCULAR DISEASE N Blood Disorder N DIZZINESS N NEUROPATHY N KIDNEY DISEASE N HEART DISEASE/HEART PROBLEMS N AIDS/HIV N MENTAL DISORDER/ILLNESS N LIVER DISEASE N NEUROPSYCHOLOGICAL N HYPERTENSION N CARDIAC ARRHYTHMIA N CANCER: SPECIFY N TOURETTE'S N ANXIETY DISORDER N ANESTHESIA COMPLICATIONS N ANEMIA/BLOOD DISORDER N BIPOLAR DISORDER N AUTOIMMUNE DISEASE N OSTEOARTHRITIS N TUBERCULOSIS N FOOT PROBLEM N Gynecological HistoryNo gynecological history recorded. Obstetrics History GPAL:G 0 P 0 0 0 0 Past Encounters Encounter ID Performer Location Encounter Start Date Encounter Closed Date Diagnosis/Indication Diagnosis SNOMED-CT Code Diagnosis ICD10 Code Diagnosis IMO Codes Diagnosis Note [id number] [facility] [place] [address] [place] [address] 08/17/2020 00:00:00 08/21/2020 09:26:27 [id number] [facility] [place] [address] [place] [address] 08/24/2020 00:00:00 08/25/2020 07:30:05 [id number] [facility] [place] [address] [place] [address] 09/11/2020 00:00:00 09/11/2020 13:01:33 [id number] [facility] [place] [address] [place] [address] 10/02/2020 00:00:00 10/02/2020 13:44:14 [id number] Rohan Merida DPM [facility] [place] [address] [place] [address] 07/03/2023 10:48:24 07/17/2023 14:15:48 Onychomycosis of toenails 403441225 B35.1 Recommend over-the-c ounter supplement ationRecom mend nail biopsy if continuesF ollow-up as needed Pain in left foot 005271 9255 97680 M79.672 Reviewed x-rays with the patient Bunion 159502952 M21.61 9 Reviewed treatment optionsRec ommend wide shoeIf continues to be problemati c will likely require surgical correction of the hammertoe toe and Bethel osteotomy of the left bunion to better improve alignment. [id number] Rohan Merida DPM [facility] [place] [address] [place] [address] 12/04/2023 15:53:26 12/24/2023 16:17:49 Bunion 381686223 M21.619 Reviewed treatment optionsRec ommend wide shoeIf continues to be problemati c will likely require surgical correction of the hammertoe toe and Bethel osteotomy of the left bunion to better improve alignment. Pain in left foot 904242 4399 89339 M79.672 Reviewed x-rays with the patient Onychomyco sis of toenails 446780562 B35.1 Recommend over-the-c ounter supplement ationRecom mend nail biopsy if continuesF ollow-up as needed [id number] Rohan Merida DPM [facility] [address] [place] [address] 12/24/2023 12:25:11 12/24/2023 17:10:58 Onychomycosis of toenails 190636690 B35.1 nail biopsy left 5th toe today with total nail avulsionKO H and PAS staining orderedfol low-up 1 week for wound care follow-up [id number] Rohan Merida DPM [facility] Brendon Nelson [address] [place] [address] 04/05/2024 16:14:25 05/20/2024 15:29:54 Bunion 898447187 M21.619 Reviewed treatment options- failed conservati ve therapy and had previous distal Chevronpla n Bethel osteotomy left great toeRecomme nd wide shoeobtain surgical clearance from primary careonce cleared will schedule surgery- plan April 30 Pain in left foot 122467 8954 72140 M79.672 Reviewed x-rays with the patient Hammer toe 322314604 M20 .42 left 2nd toeplan arthroplas ty 2nd toe [id number] Rohan Merida DPM [facility] Brendon Nelson [address] [place] [address] 06/07/2024 15:37:49 06/18/2024 12:28:54 Bunion 060665077 M21.619 Reviewed treatment options- failed conservati ve therapy and had previous distal Chevronpla n Bethel osteotomy left great toeRecomme nd wide shoeobtain surgical clearance from primary careonce cleared will schedule surgery- Awaiting clearance and MRI for abdominal pain Hammer toe 770650093 M20 .42 left 2nd toeplan arthroplas ty 2nd toe Pain in left foot 006092 7676 78566 M79.672 Reviewed x-rays with the patient [id number] Rohan Merida DPM [facility] [place] [address] [place] [address] 11/08/2024 11:35:00 11/09/2024 12:49:15 Bunion 190721592 M21.619 Reviewed treatment options- failed conservati ve therapy and had previous distal Chevronpla n Bethel osteotomy left great toeRecomme nd wide shoeobtain surgical clearance from primary careonce cleared will schedule surgery Hammer toe 541070245 M20 .42 left 2nd toeplan arthroplas ty 2nd toe Pain in left foot 811198 7886 14038 M79.672 Reviewed x-rays with the patient [id number] Rohan Merida DPM [facility] [place] [address] [place] [address] 12/06/2024 10:06:27 12/17/2024 16:24:13 Postoperative visit 049682932 Z09 Follow-up bunion correction - Bethel osteotomy and hammertoe arthroplas ty left footdressi ng changeMini mal weight-pancho ringWeight to the heel only with postop shoeRice therapyKee p dressings clean and dry for 1 weekFollow -up one-week [id number] Rohan Merida DPM [facility] [place] [address] [place] [address] 12/13/2024 09:55:37 12/17/2024 16:10:43 Postoperative visit 906717757 Z09 Follow-up bunion correction - Bethel osteotomy and hammertoe arthroplas ty left footdressi ng changeMini mal weight-pancho ringWeight to the heel only with postop shoeRice therapyKee p dressings clean and dry for 1 weekFollow -up one-week [id number] Rohan Merida DPM [facility] [place] [address] [place] [address] 12/20/2024 11:46:11 12/21/2024 11:13:34 Postoperative visit [id number] Z09 Follow-up bunion correction - Bethel osteotomy and hammertoe arthroplas ty left footdressi ng changesutu re removedMin imal weight-pancho ringWeight to the heel only with postop shoeRice therapyKee p dressings clean and dry for 1 weekFollow -up 2 weeks- removal of K-wire and repeat x-rays [id number] Rohan Merida DPM [facility] [place] [address] [place] [address] 01/10/2025 12:05:30 01/20/2025 11:46:37 Postoperative visit 346597970 Z09 Follow-up bunion correction - Bethel osteotomy and hammertoe arthroplas ty left footx-rays reviewed osteotomy of the metatarsal is healed with good correction and healing osteotomy of the proximal phalanx with intact hardware- intact K-wire of the 2nd toe with no erosive changes of either the 1st or 2nd toesMinima l weight-pancho ringcontin ue postop shoeRice therapykee p 2nd toe dressed for 3 days till pinhole [id number] toe pin removedFol low-up 4 weeks Health Concerns Section Related Observation LastModified by Organization Detai ls LastModified Time None Recorded Concern Status LastModified by Organization Details LastModified Time None Recorded Advance Directives Directive None Recorded Payers Insurance Date Sequence Insurance Name Policy Number Policy Esquivel Covered Member ID Esquivel Member ID Guarantor Name 02/19/2025 1 [facility] (MEDICAID HMO) [id number] Angelita Medina [id number] Angelita Medina Notes Date Note Type Note Provider Name and Address Organization Details Recorded Time 12/06/2024 text/html . Patient is a 49-year-old female who returns the office for follow-up on postop recovery for Bethel osteotomy with hammertoe arthroplasty of the left foot. Patient is doing well she states she has had some mild discomfort. Patient states the tramadol did cause some itching of her skin but she denies any rashes or troubles breathing. I did discuss that she may discontinue use of the medication if she is not having any pain. Patient denies any other complaints. Rohan Merida DPM [address], [place], [address], [employer] 12/13/2024 09:15:24 12/13/2024 text/html . Patient is a 49-year-old female she returns the office for follow-up on status post Bethel and hammertoe arthroplasty of the left foot. Patient overall is doing well she states she did bump her foot she states she has had some pain 2nd toe. Patient has an intact pin to the toe overall she has stable correction. Patient states she has no acute signs of infection she denies any fever, chills, nausea or vomiting. Patient is here for dressing change. Patient denies any other complaints. Rohan Merida DPM [address], [place], [address], [employer] 12/13/2024 11:08:39 12/20/2024 text/html . Patient is a 49-year-old female who returns the office for status post follow-up on Bethel osteotomy and hammertoe arthroplasty of the 2nd toe. Patient states overall she is doing well she denies any pain. Patient has minimal swelling. Patient denies any signs of infection she has intact K-wire to the 2nd toe with no acute signs of infection. Patient denies any fever, chills, nausea or vomiting. Rohan Merida DPM [address], [place], [address], [employer] 12/20/2024 12:40:36 01/10/2025 text/html . Patient is a 49-year-old female who returns the office for follow-up on bunion and hammertoe correction. Patient is overall doing well she does have some mild discomfort to the proximal phalanx which is still healing. Patient has intact hardware. Patient is here for pin removal to the 2nd toe. Patient states overall she is doing well she continues use a postop shoe she denies any signs of infection. Rohan Merida DPM [address], [place], [address], [place] [facility] [facility] 01/20/2025 11:31:26 02/14/2025 text/html . Patient is a 49-year-old female she returns for follow-up on bunion correction of the great toe she is doing well she states she is not having any pain and ready to return to normal shoe gear. Patient had repeat x-rays which shows healed osteotomies. Patient has intact hardware she has no acute signs of infection. Patient states she also has been having pain in her great toenail and 2nd toenail and wants to have these toenails avulsed. Patient denies any other complaints. Not Available Not Available Not Available OBGyn Episode No OBEpisode recorded.
--- OUTSIDE RECORDS SUMMARY | 2025-03-15 19:02 | XMS_ITS | Clinical Summary ---
Author Organization [facility] Address [address] [place] [address] Care Team Providers Care Equipment Cleaner Name Role Phone Yumiko King NP Primary Care Provider Allergies Active Allergy Reactions Criticality Noted Date Comments Cat Dander Swelling Medium 04/22/2022 Dog Dander Swelling Medium 04/22/2022 Morphine Itching Low 03/11/2023 Hydrocodone-Acetaminophen Itching Low 03/11/2023 Medications cetirizine (ZyrTEC) 10 mg tablet Take 1 tablet (10 mg total) by mouth daily Active albuterol HFA (PROVENTIL HFA,VENTOLIN HFA,PROAIR HFA) 90 mcg/actuation inhaler Inhale 2 puffs every 6 (six) hours as needed 2 Active fluticasone propionate (FLONASE) 50 mcg/actuation nasal spray Administer into each nostril daily 1 Active PARoxetine (PAXIL) 20 mg tablet every morning 8 Active risperiDONE (RisperDAL) 0.5 mg tablet nightly Active ibuprofen (ADVIL,MOTRIN) 800 mg tablet Take 1 tablet (800 mg total) by mouth every 8 (eight) hours as needed for pain (pain) 30 tablet 5 Active oxyCODONE-aceta minophen (PERCOCET) 5-325 mg per tabletIndicatio ns:Pain Take 1 tablet by mouth every 4 (four) hours as needed for pain (pain) 14 tablet 5 Active Active Problems Problem Noted Date Diagnosed Date Pelvic and perineal pain 09/15/2024 Menometrorrhagia 09/15/2024 Sterilization 04/23/2023 Atypical glandular cells of undetermined significance (CHERI) on cervical Pap smear 04/23/2023 NSTEMI (non-ST elevated myocardial infarction) 1 Surgical History Surgery Date Site/Laterality Comments SECTION TOE SURGERY 2020 BREAST BIOPSY 03/26/2014 - 04/24/2014 Right benign uls bx BREAST BIOPSY 05/13/2023 Right Medical History Medical History Date Comments Manic depression (HCC) PTSD (post-traumatic stress disorder) Aortic stenosis TTE DONE IN 10/15 ; followed by cardio Palpitations Migraines Occasional tremors pt reports co uld be from head injury as a child Depression Anxiety Hypertension per pt history o f HTN has not been treated for over a year; BP WNL Smoking Allergic rhinitis GERD (gastroesophageal reflux disease) rarely Sickle cell anemia (HCC) FAMILY HISTORY OF TRAIT FATHER AND A BROTHER patient states she does not think she has been tested for this Family History Medical History Relation Name Comments Breast cancer Neg Hx Ovarian cancer Neg Hx Thyroid cancer Neg Hx Social History Tobacco Use Types Packs/Day Years Used Date Smoking Tobacco: Former Cigarettes 0.3 15 2 - 2019 Smokeless Tobacco: Never Tobacco Cessation:Counseling Given: Not Answered AUDIT-C Answer Date Recorded Q1: How often do you have a drink containing alcohol? Never 09/15/2024 Q2: How many drinks containi ng alcohol do you have on a typical day when you are drinking? Patient does not drink Q3: How often do you have si x or more drinks on one occasion? Never 09/15/2024 Personal Safety Answer Date Recorded Have you ever been in or are you currently in a harmful physical or emotional relationship or is someone making you feel afraid or unsafe? Denies 09/15/2024 Comments No Sex and Gender Information Value Date Recorded Sex Assigned at Not on file Legal Sex Female 10:21 AM WEB APPLICATION DEVELOPER Gender Identity Not on file Sexual Orientation Not on file Obstetrics History Para Term AB IAB SAB Ectopic Multiple Livin g Live Births 7 6 6 Date Outcome GA Total Labor Labor/2nd/3rd Weight Sex Type Anes PTL Marisa A1 A5 Name Clin Term Term Term Term Term Term Last Filed Vital Signs Vital Sign Reading Time Taken Comments Blood Pressure 141/65 09/15/2024 12:50 PM CDT Pulse 64 09/15/2024 12:50 PM CDT Temperature 36.8 C (98.2 F) 09/15/2024 12:20 PM CDT Respiratory Rate 16 09/15/2024 12:50 PM CDT Oxygen Saturation 100% 09/15/2024 12:50 PM CDT Inhaled Oxygen Concentration - - Weight 96.2 kg (212 lb) 09/15/2024 8:27 AM CDT Height 172.7 cm (5' 8) 09/15/2024 8:27 AM CDT Body Mass Index 32.23 09/15/2024 8:27 AM CDT Plan of Treatment Health Maintenance Due Date Last Done Comments Cervical Cancer Screening 1977 Colon Cancer Screening-Colonoscopy 1977 Depression Screening 1977 Hepatitis C Screening 1977 Hepatitis B Screening 09/15/1995 Regular Well Visit/Exam 18-64 09/15/1995 DTaP/Tdap/Td Vaccine (2 - Td or Tdap) 05/26/2019 05/26/2009 Breast Cancer Screening-Mammogram 04/30/2024 04/30/2023, 04/18/2014, 03/30/2014 Influenza Vaccine (#1) 2025 Pneumococcal vaccine <65 Aged Out No longer eligible based on patient's age to complete this topic Medical Devices Implanted Type Area Air [employer] Missile [employer] Crewmember Device Identifier Shelf Expiration Date Model / Serial / Lot Bard Peripheral Vascular Ultraclip Bard 17ga 10cm 2 Trigger Permanent Ultrasound [id number] - [id number] - [id number] Implanted:Qty: 1 on 05/13/2023 by Meghan Mack MD at [facility] Breast Right: Breast Bard Peripheral Vascular 08/20/2025 [id number] / [id number] / [id number] Description:Implanted Right Breast 10:00 area 12 cmfn Metal Bilateral: Toes Description:First and second metatarsal Procedures Procedure Name Priority Date/Time Associated Diagnosis Comments DIAGNOSTIC MAMMOGRAM BILATERAL W CHRISTOPHER Schedule Routine, Read Routine (OP Routine) 04/30/2023 9:00 AM WEB APPLICATION DEVELOPER Nipple discharge from Last 3 Months or Most Recently Relevant to Health Maintenance Results * (ABNORMAL) Diagnostic Mammogram Bilateral W Christopher (04/30/2023 9:00 AM WEB APPLICATION DEVELOPER) Anatomical Region Laterality Modality Breast Bilateral Mammography 04/30/2023 9:44 AM WEB APPLICATION DEVELOPER Impressions 04/30/2023 9:44 AM WEB APPLICATION DEVELOPER 1. No suspicious finding on mammogram or ultrasound within the subareolar area of either breast to account for the reported bilateral nipple discharge (which has resolved on the right). There is at most minimal ductal ectasia within the bilateral breasts subareolar areas with no evidence of intraductal mass or other suspicious finding. Clinical follow-up is recommended. Consider surgical consultation for possible ductal excision if clinically warranted. 2. The 1.3 cm hypodense mass with microlobulated margins at the 10 o'clock position of the right breast (12 cm from nipple) is suspicious for malignancy (moderate suspicion). Ultrasound guided biopsy of this mass is recommended. 3. No evidence of right axillary lymphadenopathy and ultrasound. 4. No mammographic evidence of malignancy in the left breast. Recommend screening mammography of the left breast in one year. BI-RADS: 4B - Suspicious for malignancy (moderate suspicion). I discussed the findings and impression with the patient at the time of the examination. This facility will contact the referring clinician's office to obtain an order for the biopsy. The patient will then be contacted to schedule the biopsy appointment. Electronically signed by: Aden Hung M.D. Narrative 04/30/2023 9:44 AM WEB APPLICATION DEVELOPER EXAMINATION: DIAGNOSTIC MAMMOGRAM BILATERAL W CHRISTOPHER ORDERING HEALTHCARE PROVIDER: CED COBB HISTORY: 47-year-old female with spontaneous bilateral clear nipple discharge, which started approximately one month ago. She states that the right nipple discharge only lasted for approximately one week, but the left nipple discharge has persisted. COMPARISON: Ultrasound guided breast biopsy 04/18/2014. Diagnostic mammogram and ultrasound 03/30/2014. TECHNIQUE: CC, XCCL, and MLO views of the bilateral breasts were obtained with digital technique using breast tomosynthesis with C view. Computer aided detection was utilized. Limited ultrasound of the right breast was performed with grayscale and color Doppler. FINDINGS: BREAST DENSITY: The tissue of the bilateral breasts is heterogeneously dense, which may obscure small masses. MAMMOGRAM FINDINGS: There is no suspicious finding on mammogram within either breast which would account for the reported bilateral nipple discharge . More specifically, there is no discernible abnormality within the subareolar region of either breast. There is a biopsy marking clip in association with a biopsy-proven benign mass in the upper outer right breast, middle depth. This mass has not suspiciously changed, having decreased in size from the prebiopsy mammogram. Within the right breast at approximately the 10 o'clock position, posterior depth, there is a 1.2 cm oval low-density mass with partially circumscribed, partially obscured margins. There are no suspicious microcalcifications or architectural distortion associated with this mass. This mass was not definitely seen on prior mammography, although comparison is limited by lack of tomosynthesis previously. Otherwise, there is no new suspicious finding in either breast on mammogram. ULTRASOUND FINDINGS: Targeted ultrasound of the bilateral breast subareolar areas demonstrates only clear/anechoic lactiferous ducts with at most minimal ductal ectasia, measuring up to 3 mm in caliber bilaterally. There is no definite intraductal mass or other suspicious finding on ultrasound within the subareolar area of either breast. Targeted ultrasound of the right breast at the 10 o'clock position, 12 cm from nipple demonstrates a 1.3 x 0.8 x 0.6 cm hypoechoic mass with microlobulated margins and no internal blood flow on color Doppler. Sonographic evaluation of the right axilla demonstrates no evidence of suspicious axillary adenopathy. Ced Cobb MD IMG MAMMO PROCEDURES Fin al Result from Last 3 Months or Most Recently Relevant to Health Maintenance Insurance [facility] Advance Directives For more information, please contact: [phone] * Full Code (Latest Code Status on File) Date Activated Date Inactivated Comments 09/15/2024 11:32 AM 09/15/2024 6:13 PM Care Teams Equipment Cleaner Relationship Specialty Start Date End Date Yumiko King NP [address] [address] PCP - General Family Medicine 09/09/24
--- OUTSIDE RECORDS SUMMARY | 2025-03-15 19:02 | XMS_ITS | Encounter Summary ---
Author Organization [facility] Address [facility]ly [facility], [facility] [place] [address] Care Team Providers Care Manager Test Name Role Phone Franck Hathaway MD Unavailable [phone] Immanuel Petersen NP Primary Care Provider [phone] Encounter Details Date Type Department Care Team (Late st Contact Info) Description 11/08/2024 TuckerNuck Message Enc [facility] [address] [place], [place] [id number] Yumiko King APRN Three [facility]. [address] [place] [address] Clearance Social History Tobacco Use Types Packs/Day Years Used Date Smoking Tobacco: Former Cigarettes 0.5 22 Smokeless Tobacco: Never Comments:Quit smoking 2020 Alcohol Use Standard Drinks/Week Comments No 0 (1 standard drink = 0.6 oz pur e alcohol) [facility] Utilities Answer Date Recorded In the past 12 months has e [employer], gas, oil, or water [employer] threatened to shut off services in your [...] any time in the past 12 m [facility], were you homeless or living in a prison (including now)? No 05/14/2024 Comments No Sex and Gender Information Value Date Recorded Sex Assigned at Female 07/05/2024 1:05 PM FINISH MIXER Legal Sex Female 11:07 AM CDT Gender Identity Not on file Sexual Orientation Not on file documented as of this encounter Functional Status * Are you deaf or do you have serious difficulty hearing Answer Date of Assessment Author Status Yes 05/14/2024 5:53 PM FINISH MIXER Siobhan Robison R N Active * Are you blind or do you have serious difficulty seeing, even when wearing glasses? Answer Date of Assessment Author Status No 05/14/2024 5:53 PM FINISH MIXER Siobhan Robison R N Active * Do you have serious difficulty walking or climbing stairs? Answer Date of Assessment Author Status No 05/14/2024 5:53 PM Siobhan Macario R N Active * Do you have difficulty dressing or bathing? Answer Date of Assessment Author Status No 05/14/2024 5:53 PM Siobhan Macario R N Active * Because of a physical, mental, or emotional condition, do you have difficulty doing errands alone such as visiting a doctor's office or shopping? Answer Date of Assessment Author Status No 05/14/2024 5:53 PM Siobhan Macario R N Active documented as of this encounter Mental Status * Because of a physical, mental, or emotional condition, do you have serious difficulty concentrating, remembering, or making decisions? Answer Entry Date Author Status No 05/14/2024 5:53 PM Siobhan Macario R N Active documented in this encounter Plan of Treatment Upcoming Encounters Date Type Department Care Team (Late st Contact Info) Description 08/23/2025 11:00 AM CDT Appointment [facility] [place] [address] Yumiko King APRN Three [facility] [address] [place] [address] 08/31/2025 11:00 AM CDT Office Visit [facility] [address] [place] [address] Rylan Mcghee MD Three [facility], [address] [place] [address] documented as of this encounter Visit Diagnoses Not on filedocumented in this encounter Care Teams Manager Test Relationship Specialty Start Date End Date Immanuel Petersen NP PCP - General NURSE PRACTITIONER 05/30/22 Franck Hathaway MD Dede Pumper Helper CARDIOVASCULAR DISEASE 08/21/18 documented as of this encounter
--- OUTSIDE RECORDS SUMMARY | 2025-03-15 19:02 | XMS_ITS | Encounter Summary ---
Author Organization [facility] Address [address] [place] [address] Care Team Providers Care Lamina Searcher Name Role Phone Immanuel Petersen DIRECTOR OF REHABILITATION Primary Care Provider [phone] Franck Hathaway MD Unavailable [phone] Yumiko King DIRECTOR OF REHABILITATION Primary Care Provider [phone] Encounter Details Date Type Department Care Team (Late st Contact Info) Description 05/16/2023 Telephone [facility] [address] [place] [address] Arianna Pagan, VALENTE Social History Tobacco Use Types Packs/Day Years Used Date Smoking Tobacco: Former Cigarettes 0.3 15 2 2019 Smokeless Tobacco: Never AUDIT-C Answer Date Recorded Q1: How often do you have a drink containing alc ohol? Never 05/12/2023 Average Number of Drinks Not on file 023 Frequency of Binge Drinking Not on file 04/25 Personal Safety Answer Date Recorded Have you ever been in or are you currently in a harmful physical or emotional relationship or is someone making you feel afraid or unsafe? Denies 03/11/2023 Comments Unknown Sex and Gender Information Value Date Recorded Sex Assigned at Not on file Legal Sex Female 10:21 AM MERGERS AND ACQUISITIONS BANKER Gender Identity Not on file Sexual Orientation Not on file documented as of this encounter Plan of Treatment Not on file documented as of this encounter Visit Diagnoses Not on filedocumented in this encounter Care Teams Lamina Searcher Relationship Specialty Start Date End Date Immanuel Petersen NP [address] [place] [address] PCP - General Pain Management 02/21/22 09/08/24 Yumiko King NP Three [address] [id number] PCP - General Family Medicine 09/09/24 Franck Hathaway MD [address] [id number] Referring Physician Cardiovascular Disease 08/24/24 documented as of this encounter
== END 2025-03-15 16:19 | disposition home or self-care (01) ==
PROVIDERS: Emergency Provider Nurse Practitioner; PCP Nurse Practitioner Family
DX: L30.9 Dermatitis, unspecified (principal); Z79.899 Other long term (current) drug therapy
CPT/HCPCS: 99213; G0463

== ENCOUNTER 2025-05-17 09:06 | Emergency (ER) | payer OTHER, SELFPAY ==
[2025-05-17 09:16] VITALS: BP 145/81; PULSE 71; RESP 20; TEMP 36.8; O2SAT 100
--- OUTSIDE RECORDS SUMMARY | 2025-05-17 09:21 | XMS_ITS | Clinical Summary ---
Author Organization [facility] Address [address] [place] [address] Care Team Providers Care Playback Operator Name Role Phone Franck Hathaway MD Unavailable [phone] Immanuel Petersen NP Primary Care Provider [phone] Allergies Active Allergy Reactions Criticality Noted Date [...] drink = 0.6 oz pur e alcohol) [facility] Utilities Answer Date Recorded In the past [...] any time in the past 12 m [facility], were you homeless or living in a custodial (including now)? No 05/14/2024 Comments No Sex and Gender Information Value Date Recorded Sex Assigned at Female 07/05/2024 1:05 PM LINK WIRE FABRIC MACHINE OPERATOR Legal Sex Female 11:07 AM CDT Gender Identity Not on file Sexual Orientation Not on file Last Filed Vital Signs Vital Sign Reading Time Taken Comments Blood Pressure 136/90 08/23/2024 2:24 PM CDT Pulse 66 08/23/2024 2:24 PM CDT Temperature 37.1 C (98.8 F) 05/15/2024 11:58 AM LINK WIRE FABRIC MACHINE OPERATOR Respiratory Rate 15 05/15/2024 11:58 AM LINK WIRE FABRIC MACHINE OPERATOR Oxygen Saturation 100% 08/23/2024 2:24 PM CDT Inhaled Oxygen Concentration - - Weight 97.5 kg (215 lb) 08/23/2024 2:24 PM CDT Height 170.2 cm (5' 7) 08/23/2024 2:24 PM CDT Body Mass Index 33.67 08/23/2024 2:24 PM CDT Plan of Treatment Upcoming Encounters Date Type Department Care Team (Late st Contact Info) Description 08/23/2025 11:00 AM CDT Appointment [facility] Non [place]vasive [place] [address] Yumiko King APRN Three [facility] [address] [place], [place] [address] 08/31/2025 11:00 AM CDT Office Visit [facility] THREE [facility] [address] [place], [place] [address] Rylan Mcghee MD Three [facility] [address] [place], [place] [address] Health Maintenance Due Date Last Done Comments [...] with HPV 09/15/2007 COVID-19 Vaccine (1 - 2024-2 6 season) 2025 Influenza Adult (#1) 2025 Mammogram [...] 12:41 AM 03/21/2018 1:33 PM Care Teams Playback Operator Relationship Specialty Start Date End Date Immanuel Petersen NP PCP - General NURSE PRACTITIONER 05/30/22 Franck Hathaway MD Dede Lining Closer CARDIOVASCULAR DISEASE 08/21/18
--- OUTSIDE RECORDS SUMMARY | 2025-05-17 09:21 | XMS_ITS | Encounter Summary ---
Author Organization [facility] Address [facility] [place] [address] Care Team Providers Care Senior Network Security Engineer Name Role Phone Franck Hathaway MD Unavailable [phone] Immanuel Petersen NP Primary Care Provider [phone] Encounter Details Date Type Department Care Team (Late st Contact Info) Description 11/08/2024 [employer] Message Enc [facility] THREE [facility] [address] [place], [place] [id number] Yumiko King APRN Three [facility]. [address] [place] [address] Clearance Social History Tobacco Use Types Packs/Day Years Used Date Smoking Tobacco: Former Cigarettes 0.5 22 Smokeless Tobacco: Never Comments:Quit smoking 2020 Alcohol Use Standard Drinks/Week Comments No 0 (1 standard drink = 0.6 oz pur e alcohol) [facility] Utilities Answer Date Recorded In the past 12 months has e [employer], gas, oil, or water depict threatened to shut off services in your [...] any time in the past 12 m [facility], were you homeless or living in a [place] health care facility (including now)? No 05/14/2024 Comments No Sex and Gender Information Value Date Recorded Sex Assigned at Female 07/05/2024 1:05 PM COMPUTER PROGRAMMER ANALYST Legal Sex Female 11:07 AM CDT Gender Identity Not on file Sexual Orientation Not on file documented as of this encounter Functional Status * Are you deaf or do you have serious difficulty hearing Answer Date of Assessment Author Status Yes 05/14/2024 5:53 PM COMPUTER PROGRAMMER ANALYST Siobhan Robison R N Active * Are you blind or do you have serious difficulty seeing, even when wearing glasses? Answer Date of Assessment Author Status No 05/14/2024 5:53 PM COMPUTER PROGRAMMER ANALYST Siobhan Robison R N Active * Do [...] Info) Description 08/23/2025 11:[address] [facility] [place] [address] Yumiko King APRN Three [facility] [address] [place] [address] 08/31/2025 11:00 AM CDT Office Visit [facility] THREE [facility] [address] [place] [address] Rylan Mcghee MD Three [facility], [address] [place] [address] documented as of this encounter Visit Diagnoses Not on filedocumented in this encounter Care Teams Senior Network Security Engineer Relationship Specialty Start Date End Date Immanuel Petersen NP PCP - General NURSE PRACTITIONER 05/30/22 Franck Hathaway MD Dede Environmental Safety Specialist CARDIOVASCULAR DISEASE 08/21/18 documented as of this encounter
--- OUTSIDE RECORDS SUMMARY | 2025-05-17 09:21 | XMS_ITS | Clinical Summary ---
Author Organization [facility] Address [address] [place] [address] Care Team Providers Care Hot Shot Name Role Phone Yumiko King NP Primary Care Provider [phone] Allergies Active Allergy Reactions Criticality Noted Date [...] on file Legal Sex Female 10:21 AM TRAVEL DIRECTOR Gender Identity Not on file Sexual Orientation [...] this topic Medical Devices Implanted Type Area Offal Icer Poultry Device Identifier Shelf Expiration Date Model / Serial / Lot Bard Peripheral Vascular Ultraclip Bard 17ga 10cm 2 Trigger Permanent Ultrasound [id number] - [id number] - [id number] Implanted:Qty: 1 on 05/13/2023 by Meghan Mack MD at [facility] Breast Right: Breast Bard Peripheral Vascular 08/20/2025 [id number] / [id number] / [id number] Description:Implanted Right Breast 10:00 area 12 cmfn Metal Bilateral: Toes Description:First and second metatarsal Procedures Procedure Name Priority Date/Time Associated Diagnosis Comments DIAGNOSTIC MAMMOGRAM BILATERAL W CHRISTOPHER Schedule Routine, Read Routine (OP Routine) 04/30/2023 9:00 AM TRAVEL DIRECTOR Nipple discharge from Last 3 Months or Most Recently Relevant to Health Maintenance Results * (ABNORMAL) Diagnostic Mammogram Bilateral W Christopher (04/30/2023 9:00 AM TRAVEL DIRECTOR) Anatomical Region Laterality Modality Breast Bilateral Mammography 04/30/2023 9:44 AM TRAVEL DIRECTOR Impressions 04/30/2023 9:44 AM TRAVEL DIRECTOR 1. No suspicious finding on mammogram or [...] Aden Hung M.D. Narrative 04/30/2023 9:44 AM TRAVEL DIRECTOR EXAMINATION: DIAGNOSTIC MAMMOGRAM BILATERAL W CHRISTOPHER ORDERING [...] Most Recently Relevant to Health Maintenance Insurance [facility] Advance Directives For more information, please contact: [phone] * Full Code (Latest Code Status on File) Date Activated Date Inactivated Comments 09/15/2024 11:32 AM 09/15/2024 6:13 PM Care Teams Hot Shot Relationship Specialty Start Date End Date Yumiko King NP [address] [address] PCP - General Family Medicine 09/09/24
--- OUTSIDE RECORDS SUMMARY | 2025-05-17 09:21 | XMS_ITS | Encounter Summary ---
Author Organization [facility] Address [address] [place] [address] Phone Care Team Providers Care Superintendent Nonselling Name Role Phone Immanuel Petersen NP Primary Care Provider + [phone] Franck Hathaway MD Unavailable [phone] Yumiko King MOLDED CANDLES WICKER Primary Care Provider Encounter Details Date Type Department Care Team (Late st Contact Info) Description 05/14/2022 Telephone [facility] Medicine Cardiology [facility] Advanced Medicine 8th [place] [address] [place] [address] Tamika Javier Social History Tobacco Use Types Packs/Day Years Used Date Smoking Tobacco: Former Cigarettes Comments Unknown Sex and Gender Information Value Date Recorded Sex Assigned at Not on file Legal Sex Female 10:21 AM HEDIS ABSTRACTOR Gender Identity Not on file Sexual Orientation Not on file documented as of this encounter Plan of Treatment Not on file documented as of this encounter Visit Diagnoses Not on filedocumented in this encounter Care Teams Superintendent Nonselling Relationship Specialty Start Date End Date Im[facility] [address] PCP - General Pain Management 02/21/22 09/08/24 Yumiko King NP [address] [address] PCP - General Family Medicine 09/09/24 Franck Hathaway MD [address] [address] Referring Physician Cardiovascular Disease 08/24/24 documented as of this encounter
--- OUTSIDE RECORDS SUMMARY | 2025-05-17 09:21 | XMS_ITS | Encounter Summary ---
Author Organization [facility] Address [address] [place] [address] Care Team Providers Care Journalism Teacher Name Role Phone Immanuel Petersen NEWS COPY EDITOR Primary Care Provider +- [phone] Franck Hathaway MD Unavailable [phone] Yumiko King NEWS COPY EDITOR Primary Care Provider [phone] Encounter Details Date Type Department Care Team (Late st Contact Info) Description 05/16/2023 Telephone [facility] [address] [place] [address] Arianna Pagan, VALENTE Social History Tobacco Use [...] on file Legal Sex Female 10:21 AM FACULTY RESEARCH ASSISTANT Gender Identity Not on file Sexual Orientation Not on file documented as of this encounter Plan of Treatment Not on file documented as of this encounter Visit Diagnoses Not on filedocumented in this encounter Care Teams Journalism Teacher Relationship Specialty Start Date End Date Immanuel Petersen NP [address] [place] [address] PCP - General Pain Management 02/21/22 09/08/24 Yumiko King NP [address] [phone] PCP - General Family Medicine 09/09/24 Franck Hathaway MD [address] [phone] Referring Physician Cardiovascular Disease 08/24/24 documented as of this encounter
--- OUTSIDE RECORDS SUMMARY | 2025-05-17 09:21 | XMS_ITS | Clinical Summary ---
Author Organization [facility] Address [address] [place] [address] Care Team Providers Care Manager Fleet Name Role Phone Fredy Rivas MD Primary Care Provider [phone] Source Comments [facility],non-owned Affiliates and Associated Physician Practices is amultiple site organization consisting of ambulatory clinics and hospital sitesin [place], [place], [place] and [place]. This disclosure is being madepursuant to the Care Everywhere program and may not contain all information available regarding this patient. Last updated 18.[facility] Allergies No known active allergies Medications * [...] (FLONASE) 50 MCG/ACT nasal sprayIndication s:Mixed rhinitis Clinton 1 (one) spray into each nostril 2 times daily 16 g 5 11/06/2020 Active azelastine (ASTELIN) 0.1 % nasal sprayIndication s:Mixed rhinitis Clinton 2 (two) sprays into each nostril 2 [...] DEPRESSION SCREENING 05/26/2024 COVID-19 VACCINE (1 - 2024-2 6 season) 2025 INFLUENZA VACCINE (#1) 2025 ZOSTER [...] of Phone Billing Address Personal/Family 1975 [address] [facility] [place] [address] Advance Directives * Full Code (Latest Code Status on File) Date Activated Date Inactivated Comments 12/12/2017 9:58 PM 12/15/2017 3:41 PM Care Teams Manager Fleet Relationship Specialty Start Date End Date Fredy Rivas MD [address] [place] [address] [place] [address] PCP - General Emergency Medicine 12/12/17
--- OUTSIDE RECORDS SUMMARY | 2025-05-17 09:23 | XMS_ITS | Continuity of Care Document ---
Author Organization [facility] [place] Address [address] [place] [address] Assessment Encounter Date Assessment Date Assessment LastModified by Organization Details LastModified Time 04/07/2025 04/07/2025 This note is dictated and transcribed by [employer]. Assistant Family Teacher variances may occur. Despite proofreading, typographical errors may occur. Occasional wrong-word or 'vhtyb-n-pxeq' substitutions may have occurred due to the inherent limitations of voice recording. Read the chart carefully and recognize, using context, where substitutions have occurred. [email or web address] Not available 04/07/2025 11:49:24 Plan of Treatment Reminders Order Date Submit Date Provider Last Modified By Organization Details Last Modified Time Details Appointments Establish ed Patient 10 2025 10:00A Clayton Merida DPM Not available Not available Not available Lab None recorded. Referral None recorded. Procedures None recorded. Surgeries None recorded. Imaging None recorded. Medication Orders ketoconaz ole 2 % topical cream 2024 025 Applied [id number], [address] [place], [place], [id number], 04/07/2025 11:50:20 Patient TargetsNo targets recorded. Patient InstructionsNo instructions recorded. Reason for Referral None Reported. Results Created Date Observation Date Name Description Value Unit Range Abnormal Flag Note LastModifiedBy Organization Detail LastModifiedTime 03/21/20 25 XR, foot, 3 or more view No observ ation record ed. [email or web address] [facility] [place] [address], [place], [address], 03/21/2025 12:20:59 04/05/20 25 04/05/2025 XR, foot [facility] [address] [place] [address] [phone] RADIOL OGY REPORT _ Patien t Name: GUILLERMO Carreon Date Of : [birth year] Date Of Study: 2024 11:13 Ref. Physic jose: KEYONA Carreon _ Examin ation: XR FOOT RT 3V+ Clinic al Indica tion: Prev fx to Rt 2nd metata rsal/1 st digit per pt, WB. Compar lauri: None. Techni que: AP, latera l and obliqu e views of the right foot were obtain ed. Findin gs: Metall ic screw fixati on is noted involv ing the 1st and 2nd metata rsals. The fixati on appear s intact and well-a ligned . No eviden ce of acute fractu re or disloc ation is seen. A focal calcif icatio n is noted along the insert ion of the Achill es tendon , sugges tive of calcif ic tendin itis/e ntheso kiki. A small osteop hyte format ion is seen along the superi or aspect of the navicu lar bone. No other acute bony abnorm ality is identi fied. Impres pedrito: 1. Metall ic screw fixati on involv ing 1st and 2nd metata rsals - appear s intact . 2. No acute bone injury . 3. Focal calcif icatio n along Achill es tendon insert ion - sugges tive of calcif ic tendin itis/e ntheso kiki. 4. Small osteop hyte format ion along superi or aspect of navicu lar bone. Electr onical ly Signed 2024 12:04 FLETCHER Arnold [email or web address] [facility] (Imaging) [address] [place], [address], 04/06/2025 08:57:02 Result Notes None recorded. Problems Name Problem SNOMED Code Status Onset Date Resolution Date Notes Provider Name and Address Organization Details Recorded Time Hypertensi ve disorder 57703716 Active Not Available [facility] 3 22:04:31 Metatarsal louis 21456284 Active 2019 Not Available [facility] 3 22:04:30 Hammer toe 434291194 Active 2019 Not Available [facility] 3 22:04:30 Bunion 999472375 Active 2019 Not Available [facility] 3 22:04:31 Postoperat francie visit 636917740 Active 2019 Not Available [facility] 3 22:04:31 Pain in left foot 4086850120643 07 Active 2020 Not Available [facility] 3 22:04:31 Postoperat francie pain 995522473 Active 2020 Not Available [facility] 3 22:04:31 Dry skin dermatitis 663693959 Active 2020 Not Available [facility] 3 22:04:31 Onychomyco sis of toenails 194898825 Active 2023 Rohan Merida DPM [address], [place], [address] , [facility] [employer] [facility] 4 11:13:56 Hammer toe 832004836 Active 2023 Rohan Merida DPM [address], [place], [address] , [employer] 4 17:39:35 Pain of toe of right foot 6055760278470 01 Active 2024 Rohan Merida DPM [address], [place], [address] , [employer] [facility] [employer] 5 10:57:43 Problem Notes None recorded. Procedures Surgical History Date Name Laterality Status Provider Name and Address Organization Details Recorded Time 5 Toenail avulsion completed Rohan Merida DPM [address], [place], [address], [employer] 03/24/2025 11:02:38 5 Suture Removal completed Rohan Merida DPM [address], [place], [address], [employer] 12/20/2024 12:39:47 4 Toenail avulsion completed Rohan Merida DPM [address], [place], [address], [employer] 12/24/2023 12:58:05 Imaging Results None recorded. Procedure Notes None recorded. Medical Equipment None Reported. Allergies Allergen ID Allergen Name Allergen Category Reaction Reaction Severity Criticality Documentation Date Start Date Code Code System Note Provider Name and Address Organization Details Recorded Time 11424 acetamino phen / hydrocodo ne medicatio n itching moderate Not available 12/24/2023 59290 2 RxNorm VALENTE Devries, [facility] [employer] 4 12:57:26 65516 morphine medicatio n itching moderate Not available 12/24/2023 7052 RxNorm VALENTE Devries, [employer] [facility] [employer] 4 12:57:46 70437 Canis lupus familiari s extract environme nt swelling Not available high 04/08/20252021 11469 4 RxNorm Not Available [employer] - External Data Service - prod 5 07:32:13 23200 acetamino phen / hydrocodo ne medicatio n itching Not available low 04/08/20252022 45335 2 RxNorm Not Available [employer] - External Data Service - prod 5 07:32:13 80430 Bactrim medicatio n rash Not available Not available 04/08/2025 73046 9 RxNorm Not Available [facility] External Data Service - [facility] 5 07:32:40 Medications Name Sig Start Date Stop Date [...] 0.1 % topical cream APPLY TOPICALLY TO THE AFFECTED AREA TWICE DAILY active Not Available Not Available No t Available amoxicillin 500 mg tablet TAKE 1 [...] % topical cream APPLY TO THE AFFECTED AREA(S) toenails BY TOPICAL ROUTE ONCE DAILY 2024 active Not Available Not Available Not Avai lable fluticasone propionate 50 mcg/actuati on nasal spray,suspe [...] Not Available No t Available amoxicillin 875 mg-potuteu m clavulanate 125 mg tablet TAKE 1 [...] Not Available Vitals Date Recorded Body height Oxygen saturation Body temperature Body mass index (BMI) Body weight Heart rate Systolic And Diastolic Provider Name and Address Organization Details Last Updated DateTime 5 172.72 cm 98 % 98.1 [degF] 33.5 kg/m2 89952.3 2 g 76 /min 152/102 mm[Hg] ASTRID Robins [place] [employer] [facility] 5 11:39:57 Social History Question Answer Notes LastModified by Organizat ion Details LastModified Time Tobacco Smoking Status Former Smoker Not Available [facility] 07/24/2022 22:04:08 What Was The Date Of Your Most Recent Tobacco Screening? 04/07/2025 Information not available 04/07/2025 Sex: Unknown Functional Status None recorded. Mental Status None recorded. Family History Relationship Description Onset Age of this Age Resolved Age Notes LastModified by Organization Details LastModified Time Father Heart disease [email or web address] Not available 12/2023 11:02:07 Medical History Condition Response BACK INJECTIONS N ALLERGIES/HAYFEVER N LUNG DISEASE/DISORDER N ESRD N HISTORY OF DRUG ABUSE N INSOMNIA N RADIATION / CHEMOTHERAPY N COPD N HIGH CHOLESTEROL / HYPERLIPIDEMIA N RHEUMATOID ARTHRITIS N PVD N EDEMA N CAROTID BLOCKAGE N SHINGLES N BACK / NECK PROBLEMS N BOWEL PROBLEMS N DEPRESSION (INCLUDING POST ) N HAVE YOU BEEN HOSPITALIZED OR SEEN IN [facility] ER IN THE PAST YEAR ? N FAILED BACK SYNDROME N STROKE/TIA N LYMPHEDEMA N THYROID DISEASE N TB SKIN TEST N POLYCYSTIC OVARIES [...] WILLIBRAND'S DISEASE N PERIPHERAL VASCULAR DISEASE N HEARTBURN / REFLUX N PERIPHERAL ARTERY DISEASE N AFIB N Do you have a living will? N BLOOD CLOTS N POST LAMINECTOMY SYNDROME N HEPATITIS / LIVER DISEASE N PULMONARY DISEASE N USE OF NSAIDS N GOUT N ALZHEIMER'S DISEASE N PAIN N ARTERIAL INSUFFICIENCY N HEADACHES/MIGRAINES N SEIZURES/EPILEPSY N CHF N VASCULAR DISEASE N Blood Disorder N DIZZINESS N HEART DISEASE/HEART PROBLEMS N NEUROPATHY N AIDS/HIV N KIDNEY DISEASE N LIVER DISEASE N MENTAL DISORDER/ILLNESS N NEUROPSYCHOLOGICAL N HYPERTENSION N CARDIAC ARRHYTHMIA [...] ICD10 Code Diagnosis IMO Codes Diagnosis Note [id number] Rohan Merida DPM [facility] [place] [address] [facility] [address] [place] [address] 03/24/2025 10:43:18 03/25/2025 14:11:04 Pain of toe of right foot 3083877727 73646 M79.674 137954 right second toerepeat x-rayshist ory of surgery right foot bunion and hammertoe Onychomyco sis of toenails 951909725 B35.1 left 1st and 2nd toenailsna il avulsions performed todaywound care revieweddr nahun anderson ns reviewedmo nitor for signs of infection present seek medical attention immediatel yfollow-up in 10 days [id number] Rohan Merida DPM [facility] [place] [address] [place] [address] 04/07/2025 11:31:30 04/08/2025 12:24:38 Onychomycosis of toenails 967269048 B35.1 left 1st and 2nd toenailsna il avulsions nail beds healedRx ketoconazo leDC wound Carefollow -up 3 months Health Concerns Section Related Observation LastModified by Organization Glynn ls LastModified Time None Recorded Concern Status LastModified by Organization Details LastModified Time None Recorded Payers Encounter Date Sequence Insurance Name Policy Number Policy Esquivel Covered Member ID Esquivel Member ID Guarantor Name 04/07/2025 1 [facility] (MEDICAID HMO) [id number] Angelita Medina [id number] Angelita Medina Notes Date Note Type Note Provider Name and Address Organization Details Recorded Time 04/07/2025 text/html . Patient is a 49-year-old female who returns the office for follow-up on total nail avulsion of the left 1st and 2nd toenails her nail beds are completely healed she denies any pain to the area. Patient denies any signs of infection. Rohan Merida DPM [address] [facility] [facility] [[email or web address] [address], [place], [address], [place] [facility] 04/07/2025 11:50:22 OBGyn Episode No OBEpisode recorded.
--- OUTSIDE RECORDS SUMMARY | 2025-05-17 09:23 | XMS_ITS | Data Portability ---
Author Organization [place] [facility] [place] [employer] [facility], Main Office Address [address] [place] [address] Assessment Encounter Date Assessment Date Assessment LastModified by Organization Details LastModified Time 12/20/2024 12/20/2024 This note is dictated and transcribed by [employer]. [employer] Dis[employer] variances may occur. Despite proofreading, typographical errors may occur. Occasional wrong-word or 'pgqqi-a-xucm' substitutions may have occurred due to the inherent limitations of voice recording. Read the chart carefully and recognize, using context, where substitutions have occurred. Not available 12/20/2024 12:40:09 01/10/2025 01/10/2025 This note is dictated and transcribed by [employer]. [employer] Dis[employer] variances may occur. Despite proofreading, typographical errors may occur. Occasional wrong-word or 'tlehh-z-hyrq' substitutions may have occurred due to the inherent limitations of voice recording. Read the chart carefully and recognize, using context, where substitutions have occurred. Not available 01/20/2025 11:27:35 02/14/2025 02/14/2025 This note is dictated and transcribed by [employer]. [employer] Dis[employer] variances may occur. Despite proofreading, typographical errors may occur. Occasional wrong-word or 'nbwej-l-ynwx' substitutions may have occurred due to the inherent limitations of voice recording. Read the chart carefully and recognize, using context, where substitutions have occurred. Not available 03/21/2025 12:19:40 03/24/2025 03/24/2025 This note is dictated and transcribed by [employer]. [employer] Dis[employer] variances may occur. Despite proofreading, typographical errors may occur. Occasional wrong-word or 'omepc-h-egbt' substitutions may have occurred due to the inherent limitations of voice recording. Read the chart carefully and recognize, using context, where substitutions have occurred. Not available 03/24/2025 10:58:02 04/07/2025 04/07/2025 This note is dictated and transcribed by [employer]. [employer] Dis[employer] variances may occur. Despite proofreading, typographical errors may occur. Occasional wrong-word or 'rmhvg-q-jnnv' substitutions may have occurred due to the inherent limitations of voice recording. Read the chart carefully and recognize, using context, where substitutions have occurred. Not available 04/07/2025 11:49:24 Plan of Treatment Reminders Order Date Submit Date Provider Last Modified By Organization Details Last Modified Time Details Appointments Establish ed Patient 10 2025 10:00A M Rohan Merida DPM Not available Not available Not available Lab None recorded. Referral None recorded. Procedures None recorded. Surgeries None recorded. Imaging XR, foot, 3 or more view 2024 025 [email or web address] [facility] (Outpatient Orders), [address] [place], [address], 05/09/2025 09:10:36 XR, foot, 3 or more view 2024 025 [email or web address] [facility] [place], [address], [place], [address], 03/21/2025 12:21:00 Medication Orders ketoconaz ole 2 % topical cream 2024 025 [id number], [address], [place], [id number], 04/07/2025 11:50:20 Patient TargetsNo targets recorded. Patient InstructionsNo instructions recorded. Reason for Referral None Reported. Results Created Date Observation Date Name Description Value Unit Range Abnormal Flag Note LastModifiedBy Organization Detail LastModifiedTime 12/14/19 25 XR, foot, 3 or more view No observ ation record ed. [email or web address] [facility] [place] [address], [place], [address], 12/13/2024 11:08:24 03/21/20 XR, foot, 3 or more view No observ ation record ed. [email or web address] [facility] [place] [address], [place], [address], 03/21/2025 12:20:59 04/05/20 25 04/05/2025 XR, foot [facility] [address] [place] [address] [phone] RADIOL OGY REPORT _ Patien t Name: [...] Electr onical ly Signed 2024 12:04 FLETCHER [email or web address] [facility] (Imaging) [address] [place], [address], 04/06/2025 08:57:02 Result Notes Documentation Provider Name and Address Organization Details Recorded Time Xr, Foot : [facility] [address] [place] [address] [phone] RADIOLOGY REPORT ____ Patient Name: GUILLERMO Carreon Date Of : 1975 Date Of Study: 04/05/2025 11:13 Ref. Physician: FRANCIS Carreon ____ Examination: XR FOOT RT 3V+ Clinical Indication: Prev fx to Rt 2nd metatarsal/1st digit per pt, WB. Comparison: None. Technique: AP, lateral and oblique views of the right foot were obtained. Findings: Metallic screw fixation is noted involving the 1st and 2nd metatarsals. The fixation appears intact and well-aligned. No evidence of acute fracture or dislocation is seen. A focal calcification is noted along the insertion of the Achilles tendon, suggestive of calcific tendinitis/enthesopathy. A small osteophyte formation is seen along the superior aspect of the navicular bone. No other acute bony abnormality is identified. Impression: 1. Metallic screw fixation involving 1st and 2nd metatarsals - appears intact. 2. No acute bone injury. 3. Focal calcification along Achilles tendon insertion - suggestive of calcific tendinitis/enthesopathy. 4. Small osteophyte formation along superior aspect of navicular bone. Electronically Signed 04/05/2025 12:04 FLETCHER Merida DPM [address] [address], [place], [address], [place] [facility] 04/06/2025 08:57:02 Problems Name Problem SNOMED Code Status Onset Date Resolution Date Notes Provider Name and Address Organization Details Recorded Time Hypertensi ve disorder 23137498 Active Not Available [facility] 3 22:04:31 Metatarsal louis 35716246 Active 2019 Not Available [employer] 3 22:04:30 Hammer toe 893305295 Active 2019 Not Available [facility] 3 22:04:30 Bunion 836145364 Active 2019 Not Available [employer] 3 22:04:31 Postoperat francie visit 072989201 Active 2019 Not Available [employer] 3 22:04:31 Pain in left foot 2889903337084 07 Active 2020 Not Available [employer] 3 22:04:31 Postoperat francie pain 324934503 Active 2020 Not Available [employer] 3 22:04:31 Dry skin dermatitis 247515553 Active 2020 Not Available [employer] 3 22:04:31 Onychomyco sis of toenails 120042809 Active 2023 Rohan Merida DPM [address], [place], [address] , [employer] 4 11:13:56 Hammer toe 209076600 Active 2023 Rohan Merida DPM [address], [place], [address] , [employer] 4 17:39:35 Pain of toe of right foot 0720313833752 01 Active 2024 Rohan Merida DPM [address], [place], [address] , [employer] 5 10:57:43 Problem Notes None recorded. Procedures Surgical History Date Name Laterality Status Provider Name and Address Organization Details Recorded Time 5 Toenail avulsion completed Rohan Merida DPM [address], [place], [address], [employer] 03/24/2025 11:02:38 5 Suture Removal completed Rohan Merida DPM [address], [place], [address], [employer] 12/20/2024 12:39:47 4 Toenail avulsion completed Rohan Merida DPM [address], [place], [address], [employer] 12/24/2023 12:58:05 Imaging Results None recorded. Procedure Notes None recorded. Medical Equipment None Reported. Allergies Allergen ID Allergen Name Allergen Category Reaction Reaction Severity Criticality Documentation Date Start Date Code Code System Note Provider Name and Address Organization Details Recorded Time 04399 acetamino phen / hydrocodo ne medicatio n itching moderate Not available 12/24/2023 05970 2 RxNorm Becky Almanzar RN null, [employer] [facility] 12:57:26 51047 morphine medicatio n itching moderate Not available 12/24/2023 7052 RxNorm Becky Almanzar RN null, [place] [facility] [employer] [facility] 4 12:57:46 09362 Canis lupus familiari s extract environme nt swelling Not available high 04/08/20252021 70031 4 RxNorm Not Available [employer] 5 07:32:13 14302 acetamino phen / hydrocodo ne medicatio n itching Not available low 04/08/20252022 48475 2 RxNorm Not Available [employer] - [facility] 5 07:32:13 59774 Bactrim medicatio n rash Not available Not available 04/08/2025 41896 9 RxNorm Not Available [employer] - [facility] 5 07:32:40 Medications Name Sig Start Date [...] weight Heart rate Body temperature Oxygen saturation Systolic And Diastolic Provider Name and Address Organization Details Last Updated DateTime 5 172.72 cm 33.5 kg/m2 93395.3 2 g 84 /min 98.2 [degF] 99 % 153/108 mm[Hg] Jett Alvarez [facility] [employer] [facility] 5 12:07:46 Date Recorded Body height Body mass index (BMI) Body weight Provider Name and Address Organization Details Last Updated DateTime 01/10/2025 172.72 cm 33.5 kg/m2 75180.32 g Jett Alvarez [facility] [employer] [facility] 01/10/2025 12:09:29 Date Recorded Body height Body mass index (BMI) Body weight Oxygen saturation Body temperature Heart rate Systolic And Diastolic Provider Name and Address Organization Details Last Updated DateTime 5 172.72 cm 33.5 kg/m2 27302.3 2 g 96 % 98.2 [degF] 83 /min 140/97 mm[Hg] Jett Alvarez RMA [place] [facility] 5 12:22:45 Date Recorded Body height Body mass index (BMI) Body weight Heart rate Respiratory rate Oxygen saturation Systolic And Diastolic Provider Name and Address Organization Details Last Updated DateTime 5 172.72 cm 33.5 kg/m2 42705.3 2 g 79 /min 14 /min 99 % 165/107 mm[Hg] Dayana Mosher [facility] 5 10:48:15 Date Recorded Body height Oxygen saturation Body temperature Body mass index (BMI) Body weight Heart rate Systolic And Diastolic Provider Name and Address Organization Details Last Updated DateTime 5 172.72 cm 98 % 98.1 [degF] 33.5 kg/m2 28403.3 2 g 76 /min 152/102 mm[Hg] Jett Alvarez Leoncio [facility] 5 11:39:57 Social History Question Answer Notes LastModified by Organizat ion Details LastModified Time Tobacco Smoking Status Former Smoker Not Available [facility] 07/24/2022 22:04:08 What Was The Date Of Your Most Recent Tobacco Screening? 04/07/2025 [email or web address] Information not available 04/07/2025 Sex: Unknown Functional Status None recorded. Mental Status None recorded. Family History Relationship Description Onset Age of this Age Resolved Age Notes LastModified by Organization Details LastModified Time Father Heart disease [email or web address] Not available 12/2023 11:02:07 Medical History Condition [...] HAVE YOU BEEN HOSPITALIZED OR [facility] IN [facility] IN THE PAST YEAR ? N [...] ICD10 Code Diagnosis IMO Codes Diagnosis Note [id number] [facility] [place] [address] [place] [address] 08/17/2020 00:00:00 08/21/2020 09:26:27 [id number] [facility] [place] [address] [place] [address] 08/24/2020 00:00:00 08/25/2020 07:30:05 [id number] [facility] [place] [address] [place] [address] 09/11/2020 00:00:00 09/11/2020 13:01:33 [id number] [facility] [place] [address] [place] [address] 10/02/2020 00:00:00 10/02/2020 13:44:14 [id number] Rohan Merida DPM [facility] [place] [address] [place] [address] 07/03/2023 10:48:24 07/17/2023 14:15:48 Onychomycosis of toenails 585754092 B35.1 Recommend over-the-c ounter supplement ationRecom mend nail biopsy if continuesF ollow-up as needed Pain in left foot 488730 8397 83921 M79.672 Reviewed x-rays with the patient Bunion 837079243 M21.61 9 Reviewed treatment optionsRec ommend wide shoeIf continues to be problemati c will likely require surgical correction of the hammertoe toe and Bethel osteotomy of the left bunion to better improve alignment. [id number] Rohan Merida DPM [facility] [place] [address] [place] [address] 12/04/2023 15:53:26 12/24/2023 16:17:49 Bunion 661565069 M21.619 Reviewed treatment optionsRec ommend wide shoeIf continues to be problemati c will likely require surgical correction of the hammertoe toe and Bethel osteotomy of the left bunion to better improve alignment. Pain in left foot 500387 1177 51526 M79.672 Reviewed x-rays with the patient Onychomyco sis of toenails 805342650 B35.1 Recommend over-the-c ounter supplement ationRecom mend nail biopsy if continuesF ollow-up as needed [id number] Rohan Merida DPM [facility] [address] [place] [address] 12/24/2023 12:25:11 12/24/2023 17:10:58 Onychomycosis of toenails 040292932 B35.1 nail biopsy left 5th toe today with total nail avulsionKO H and PAS staining orderedfol low-up 1 week for wound care follow-up [id number] Rohan Merida DPM [facility] [place] [address] [place] [address] 04/05/2024 16:14:25 05/20/2024 15:29:54 Bunion 172296116 M21.619 Reviewed treatment options- failed conservati ve therapy and had previous distal Chevronpla n Bethel osteotomy left great toeRecomme nd wide shoeobtain surgical clearance from primary careonce cleared will schedule surgery- plan April 30 Pain in left foot 352351 7774 42697 M79.672 Reviewed x-rays with the patient Hammer toe 983354031 M20 .42 left 2nd toeplan arthroplas ty 2nd toe [id number] Rohan Merida DPM [facility] [place] [address] [place] [address] 06/07/2024 15:37:49 06/18/2024 12:28:54 Bunion 125402671 M21.619 Reviewed treatment options- failed conservati ve therapy and had previous distal Chevronpla n Bethel osteotomy left great toeRecomme nd wide shoeobtain surgical clearance from primary careonce cleared will schedule surgery- Awaiting clearance and MRI for abdominal pain Hammer toe 904361765 M20 .42 left 2nd toeplan arthroplas ty 2nd toe Pain in left foot 244359 3210 92933 M79.672 Reviewed x-rays with the patient [id number] Rohan Merida DPM [facility] [place] [address] [place] [address] 11/08/2024 11:35:00 11/09/2024 12:49:15 Bunion 206625498 M21.619 Reviewed treatment options- failed conservati ve therapy and had previous distal Chevronpla n Bethel osteotomy left great toeRecomme nd wide shoeobtain surgical clearance from primary careonce cleared will schedule surgery Hammer toe 739827878 M20 .42 left 2nd toeplan arthroplas ty 2nd toe Pain in left foot 066610 4777 08533 M79.672 Reviewed x-rays with the patient [id number] Rohan Merida DPM [facility] [place] [address] [place] [address] 12/06/2024 10:06:27 12/17/2024 16:24:13 Postoperative visit 961877001 Z09 Follow-up bunion correction - Bethel osteotomy and hammertoe arthroplas ty left footdressi ng changeMini mal weight-pancho ringWeight to the heel only with postop shoeRice therapyKee p dressings clean and dry for 1 weekFollow -up one-week [id number] Rohan Merida DPM [facility] [place] [address] [place] [address] 12/13/2024 09:55:37 12/17/2024 16:10:43 Postoperative visit 694344996 Z Follow-up bunion correction - Bethel osteotomy and hammertoe arthroplas ty left footdressi ng changeMini mal weight-pancho ringWeight to the heel only with postop shoeRice therapyKee p dressings clean and dry for 1 weekFollow -up one-week [id number] Rohan Merida DPM [facility] [place] [address] [place] [address] 12/20/2024 11:46:11 12/21/2024 11:13:34 Postoperative visit 125959383 Z Follow-up bunion correction - Bethel osteotomy and hammertoe arthroplas ty left footdressi ng changesutu re removedMin imal weight-pancho ringWeight to the heel only with postop shoeRice therapyKee p dressings clean and dry for 1 weekFollow -up 2 weeks- removal of K-wire and repeat x-rays [id number] Rohan Merida DPM [facility] [place] [address] [place] [address] 01/10/2025 12:05:30 01/20/2025 11:46:37 Postoperative visit 965743098 Z Follow-up bunion correction - Bethel osteotomy and [...] toe dressed for 3 days till pinhole [id number] toe pin removedFol low-up 4 weeks [id number] Rohan Merida DPM [facility] [place] [address] [place] [address] 02/14/2025 12:14:49 03/22/2025 14:10:56 Postoperative visit 463253555 Z09 Follow-up bunion correction - Bethel osteotomy and hammertoe arthroplas ty 2nd left footrepeat x-rays todayretur n in normal shoe gearRice therapyfol low-up as needed [id number] Rohan Merida DPM [facility] [place] [address] [place] [address] 03/24/2025 10:43:18 03/25/2025 14:11:04 Pain of toe of right foot 9522114666 88257 M79.674 668604 right second toerepeat x-rayshist ory of surgery right foot bunion and hammertoe Onychomyco sis of toenails 432569422 B35.1 left 1st and 2nd toenailsna il avulsions performed todaywound care revieweddr essing instructio ns reviewedmo nitor for signs of infection present seek medical attention immediatel yfollow-up in 10 days [id number] Rohan Merida DPM [facility] [place] [address] [place] [address] 04/07/2025 11:31:30 04/08/2025 12:24:38 Onychomycosis of toenails 860428960 B35.1 left 1st and 2nd toenailsna il [...] Member ID Esquivel Member ID Guarantor Name 04/06/2025 1 [facility] (MEDICAID HMO) [id number] Angelita Medina [id number] Angelita Medina Notes Date Note Type Note Provider Name and Address Organization Details Recorded Time 12/20/2024 text/html . Patient is a 49-year-old [...] chills, nausea or vomiting. Rohan Merida DPM [address], [place], [address], [employer] 12/20/2024 12:40:36 01/10/2025 text/html . Patient is [...] Merida DPM [address], [place], [address], [employer] 01/20/2025 11:31:26 02/14/2025 text/html . Patient is [...] toenails avulsed. Patient denies any other complaints. Rohan Merida DPM [address], [place], [address], [employer] 03/21/2025 12:21:14 03/24/2025 text/html . Patient is a 49-year-old female who returns the office for total nail avulsion of the left 1st and 2nd toenails due to thickening and discoloration with nail dystrophy. Patient states that she also has been having some pain in her right 2nd toe she states that the 2nd toe is overriding the 3rd. Patient denies any wounds but states that the 2nd and 3rd toes become uncomfortable when walking. Patient denies any injury of the foot. Patient denies any other complaints. Rohan Merida DPM [address], [place], [address], [employer] 03/24/2025 12:41:13 04/07/2025 text/html . Patient is a 49-year-old female who returns the office for follow-up on total nail avulsion of the left 1st and 2nd toenails her nail beds are completely healed she denies any pain to the area. Patient denies any signs of infection. Rohan Merida DPM [address], [place], [address], [employer] 04/07/2025 11:50:22 OBGyn Episode No OBEpisode recorded.
--- OUTSIDE RECORDS SUMMARY | 2025-05-17 09:23 | XMS_ITS | Continuity of Care Document ---
Author Organization [facility], [facility] Pod[facility] Address [address] [facility] [address] [place] [address] Assessment Encounter Date Assessment Date Assessment LastModified by Organization Details LastModified Time 03/24/2025 03/24/2025 This note is dictated and transcribed by [employer]. Supervisor [place] variances may occur. Despite proofreading, typographical errors may occur. Occasional wrong-word or '[id number]-y-[id number]' substitutions may have occurred due to the inherent limitations of voice recording. Read the chart carefully and recognize, using context, where substitutions have occurred. [email or web address] Not available 03/24/2025 10:58:02 Plan of Treatment Reminders Order Date Submit Date Provider Last Modified By Organization Details Last Modified Time Details Appointments Establish ed Patient 10 2025 10:00A M Rohan Merida DPM Not available Not available Not available Lab None recorded. Referral None recorded. Procedures None recorded. Surgeries None recorded. Imaging XR, foot, 3 or more view 2024 025 [email or web address] [facility] (Outpatient Orders), [address] [place], [address], 05/09/2025 09:10:36 Medication Orders None recorded. Patient TargetsNo targets recorded. Patient InstructionsNo instructions recorded. Reason for Referral None Reported. Results Created Date Observation Date Name Description Value Unit Range Abnormal Flag Note LastModifiedBy Organization Detail LastModifiedTime 03/21/20 25 XR, foot, 3 or more view No observ ation record ed. [email or web address] [facility] Tj [place] [address], [place], [address], 03/21/2025 12:20:59 04/05/20 25 04/05/2025 XR, foot [facility] [address] [place] [address] [phone] RADIOL OGY REPORT _ Patien t Name: [...] ly Signed 2024 12:04 FLETCHER Arnold [email or web address] [facility] (Imaging) [address] [place], [address], 04/06/2025 08:57:02 Result Notes None recorded. Problems Name Problem SNOMED Code Status Onset Date Resolution Date Notes Provider Name and Address Organization Details Recorded Time Hypertensi ve disorder 56307588 Active Not Available [facility] 3 22:04:31 Metatarsal louis 29992446 Active 2019 Not Available [facility] 3 22:04:30 Hammer toe 426247058 Active 2019 Not Available [facility] 3 22:04:30 Bunion 646432880 Active 2019 Not Available [facility] 3 22:04:31 Postoperat francie visit 417183330 Active 2019 Not Available [facility] 3 22:04:31 Pain in left foot 2143839894358 07 Active 2020 Not Available [facility] 3 22:04:31 Postoperat francie pain 957485837 Active 2020 Not Available [facility] 3 22:04:31 Dry skin dermatitis 184628290 Active 2020 Not Available [facility] 3 22:04:31 Onychomyco sis of toenails 622031553 Active 2023 Rohan Merida DPM [address], [place], [address] , [facility], [facility] 4 11:13:56 Hammer toe 561172303 Active 2023 Rohan Merida DPM [address], [place], [address] , [place] [employer] [facility] [employer] 4 17:39:35 Pain of toe of right foot 8062367028727 01 Active 2024 Rohan Merida DPM [address], [place], [address] , [employer] [facility] [employer] 5 10:57:43 Problem Notes None recorded. Procedures Surgical History Date Name Laterality Status Provider Name and Address Organization Details Recorded Time 5 Toenail avulsion completed Rohan Merida DPM [address], [place], [address], [employer] [facility] [employer] 03/24/2025 11:02:38 5 Suture Removal completed Rohan Merida DPM [address], [place], [address], [employer] [facility] [employer] 12/20/2024 12:39:47 4 Toenail avulsion completed Rohan Merida DPM [address], [place], [address], [employer] 12/24/2023 12:58:05 Imaging Results None recorded. Procedure Notes None recorded. Medical Equipment None Reported. Allergies Allergen ID Allergen Name Allergen Category Reaction Reaction Severity Criticality Documentation Date Start Date Code Code System Note Provider Name and Address Organization Details Recorded Time 44786 acetamino phen / hydrocodo ne medicatio n itching moderate Not available 12/24/2023 28935 2 RxNorm Becky Almanzar RN null, [facility] [employer] [facility] 4 12:57:26 21251 morphine medicatio n itching moderate Not available 12/24/2023 7052 RxNorm Becky Almanzar RN null, [place] [employer] [facility] [employer] [facility] 4 12:57:46 41381 Canis lupus familiari s extract environme nt swelling Not available high 04/08/20252021 10847 4 RxNorm Not Available [employer] - prod 5 07:32:13 35251 acetamino phen / hydrocodo ne medicatio n itching Not available low 04/08/20252022 79129 2 RxNorm Not Available [employer] - prod 5 07:32:13 95113 Bactrim medicatio n rash Not available Not available 04/08/2025 48641 9 RxNorm Not Available [facility] External Data Service - prod 5 07:32:40 Medications [...] Not Available No t Available amoxicillin 875 mg-berto m clavulanate 125 mg tablet TAKE 1 [...] Last Updated DateTime 172.72 cm 33.5 kg/m2 27929.3 2 g 79 /min 14 /min 99 % 165/107 mm[Hg] [facility] [employer] 5 10:48:15 Social History Question Answer Notes LastModified by KAYAK ion Details LastModified Time Tobacco Smoking Status Former Smoker Not Available [facility] 07/24/2022 22:04:08 What Was The Date Of Your Most Recent Tobacco Screening? 04/07/2025 [email or web address] Information not available 04/07/2025 Sex: Unknown Functional Status None recorded. Mental Status None recorded. Family History Relationship Description Onset Age of this Age Resolved Age Notes LastModified by Organization Details LastModified Time Father Heart disease [email or web address] Not available 12/2023 11:02:07 Medical History Condition Response ALLERGIES/HAYFEVER N BACK INJECTIONS N LUNG DISEASE/DISORDER N INSOMNIA N ESRD N HISTORY OF DRUG ABUSE N RADIATION / CHEMOTHERAPY N COPD N RHEUMATOID ARTHRITIS N HIGH CHOLESTEROL / HYPERLIPIDEMIA N PVD N EDEMA N CAROTID BLOCKAGE N SHINGLES N BACK / NECK PROBLEMS N BOWEL PROBLEMS N DEPRESSION (INCLUDING POST ) N HAVE YOU BEEN HOSPITALIZED OR SEEN IN [facility] ER IN THE PAST YEAR ? N FAILED BACK SYNDROME N STROKE/TIA N THYROID DISEASE N LYMPHEDEMA N TB SKIN TEST N POLYCYSTIC OVARIES N OBESITY N ANEURYSM N HISTORY WITH COMPLICATIONS WITH ANESTHES IA ? N FIBROMYALGIA N OSTEOPOROSIS N URINARY/BLADDER/KIDNEY PROBLEMS [...] ICD10 Code Diagnosis IMO Codes Diagnosis Note [id number] Rohan Merida DPM [facility] [place] [address] [facility] [address] [place] [address] 03/24/2025 10:43:18 03/25/2025 14:11:04 Pain of toe of right foot 7934612196 28678 M79.674 533755 right second toerepeat x-rayshist ory of surgery right foot bunion and hammertoe Onychomyco sis of toenails 835705883 B35.1 left 1st and 2nd toenailsna ma avulsions performed todaywound care revieweddr essing instructio ns reviewedmo nitor for signs of infection present seek medical attention immediatel yfollow-up in 10 days Health Concerns Section Related Observation LastModified by Organization Detai ls LastModified Time None Recorded Concern Status LastModified by Organization Details LastModified Time None Recorded Payers Encounter Date Sequence Insurance Name Policy Number Policy Esquivel Covered Member ID Esquivel Member ID Guarantor Name 03/24/2025 1 [facility] (MEDICAID HMO) [id number] Angelita Medina [id number] Angelita Medina Notes Date Note Type Note Provider Name and Address Organization Details Recorded Time 03/24/2025 text/html . Patient is a 49-year-old [...] any other complaints. Rohan Merida DPM [address] [address], [place], [address], [place] [facility] [employer] 03/24/2025 12:41:13 OBGyn Episode No OBEpisode recorded.
--- OUTSIDE RECORDS SUMMARY | 2025-05-17 09:23 | XMS_ITS | Data Portability ---
Author Organization [facility], [facility] Address [address] [place] [address] Assessment Encounter Date Assessment Date Assessment LastModified by Organization Details LastModified Time 08/12/2024 08/12/2024 CA 125 normal [email or web address] Not available 08/15/2024 08:07:50 Plan of Treatment Reminders Order Date Submit Date Provider Last Modified By Organization Details Last Modified Time Details Appointments None recorded. Lab unlisted lab - sureswab(R) advanced vaginitis plus, tma 2024 025 [employer] [facility], [address] [place], [address], 5 10:38:23 biopsy, tissue 2024 025 [facility], [address] [place], [address], 17:49:56 test, urine 2024 025 [email or web address] [facility], [address] [place], [address], 18:03:44 biopsy, tissue 2024 025 [employer] [facility], [address] [place], [address], 5 14:06:49 pap, LB 2024 025 [employer] [facility], [address] [facility], [place], [address], 5 13:21:01 HPV E6+E7 mRNA, qualitative PCR, cervix 2024 025 [facility], [address] [place], [address], 5 16:59:47 bacterial vaginosis + vaginitis panel, vaginal 2023 024 [facility], [address] [place], [address], 4 14:30:03 ca 125, serum 2023 024 [employer] [facility], [address] [place], [address], 4 07:08:07 Referral None recorded. Procedures None recorded. Surgeries None recorded. Imaging MRI, pelvis, w/wo contrast - 4.2cm hydrosalpix noted on CT scan from 05/12, MRI recommended . 2023 024 [facility], [address] [place], [address], 5 11:27:49 Medication Orders metronidazo le 500 mg tablet 2024 025 [id number], [address] [place], [place], [id number], 5 13:22:06 fluconazole 150 mg tablet 2024 025 [id number], [address], [place], [id number], 5 13:22:05 Patient TargetsNo targets recorded. Patient Instructions Encounter Date Encounter Id Patient Instructions Last Modified By Organization Details Last Modified Time 09/06/2024 [id number] colposcopy: what to expect at home [email or web address] [...] NUMBE R: 866.6 [id number] [id number] Not Available [employer] [facility] [address] [place], [address], 05/21/2024 07:08:07 08/18/1908/17/2024 HPV GENOT YPE HPV 16 Negati ve negati ve normal Not Available [facility] [address] [place], [address], 08/17/2024 16:59:47 08/18/1908/17/2024 HPV GENOT YPE HPV 18/45 Negati ve negati ve normal Assay can diffe renti ate HPV 16 from HPV 18 and/o r HPV 45. But canno t diffe renti ate betwe en 18 and 45. Not Available [facility] [address] [place], [address], 08/17/2024 16:59:47 08/18/19 25 08/13/2024 HPV HIGH [...] l cervi aguilar cytol ogy. Not Available [facility] [address] [place], [address], 08/17/2024 16:59:48 09/26/19 25 09/25/2024 SURES WAB(R ) ADVAN JENNIFER VAGIN ITIS PLUS, TMA sureswab(R) adv bacterial vaginosis (bv), tma POSITI VE negati ve abnormal Not Available [address], [address], 09/25/2024 10:38:23 09/26/19 25 09/25/2024 SURES WAB(R ) ADVAN JENNIFER VAGIN ITIS PLUS, TMA any species NOT DETECT ED not detect ed normal Not Available [address], [address], 09/25/2024 10:38:23 09/26/19 25 09/25/2024 SURES WAB(R ) ADVAN JENNIFER VAGIN ITIS PLUS, TMA any glabrata NOT DETECT ED not detect ed normal Sanjana da speci es C. albic ans, C. tropi calis , C. parap jorgito is, and/o r C. dubli niens is can be detec funmi, but not diffe renti ated, in the Sanjana da spp. resul t. Not Available [address] [place], [address], 09/25/2024 10:38:23 09/26/19 25 09/25/2024 SURES WAB(R ) ADVAN JENNIFER VAGIN ITIS PLUS, TMA trichomonas vaginalis (TV), tma NOT DETECT ED not detect ed normal Not Available [facility] [place] [address] [place], [address], 09/25/2024 10:38:23 09/26/19 25 09/25/2024 SURES WAB(R ) ADVAN JENNIFER VAGIN ITIS PLUS, TMA chlamydia trachomatis RNA, tma, urogenital NOT DETECT ED not detect ed normal Not Available [employer] [address], [address], 09/25/2024 10:38:23 09/26/19 25 09/25/2024 SURES WAB(R ) ADVAN JENNIFER VAGIN ITIS PLUS, TMA neisseria gonorrhoeae RNA, tma, urogenital NOT DETECT ED not detect ed normal For addit ional infor marion aviles refer to https ://ed ucati on.CricHQ. Despegar.com/f aq/FA Q154 (This link is being provi ded for mary ram/ kassidy verduzco purpo ses only. ) NO COLLE CTION DATE RECEI DEIDRA. WE HAVE USED THE DATE THE SPECI MEN WAS RECEI DEIDRA BY THIS LABOR ATORY THE COLLE CTION DATE. IF THIS IS INCOR RECT, MARION E CONTA CT CLIEN T SERVI ELIOT. PHONE NUMBE R: [phone] Not Available [facility] [address], [address], 09/25/2024 10:38:23 05/20/20 24 05/21/2024 VAGIN ITIS PLUS STD PANEL bacterial vaginosis BV POS negati ve abnormal Not Available [facility] [address] [place], [address], 05/21/2024 14:30:03 05/20/20 24 05/21/2024 VAGIN ITIS PLUS STD PANEL any species C. spp neg negati ve normal Not Available [facility] [address] [place], [address], 05/21/2024 14:30:03 05/20/20 24 05/21/2024 VAGIN ITIS PLUS STD PANEL any glabrata C. gla neg negati ve normal Not Available [facility] [address] [place], [address], 05/21/2024 14:30:03 05/20/20 24 05/21/2024 VAGIN ITIS PLUS STD PANEL trichomonas vaginalis CV/TV TRICH neg negati ve normal Not Available [facility] [address] [place], [address], 05/21/2024 14:30:03 05/20/20 24 05/21/2024 VAGIN ITIS PLUS STD PANEL chlamydia trachomatis CT neg negati ve normal This repor t is inten ded for us in clini aguilar monit oring and manag ement of patie nts. It is not inten ded for use in medic al-le gal appli catio n. Not Available [facility] [address] [place], [address], 05/21/2024 14:30:03 05/20/20 24 05/21/2024 VAGIN ITIS PLUS STD PANEL neisseria gonorrhoeae GC neg negati ve normal This repor t is inten ded for us in clini aguilar monit oring and manag ement of patie nts. It is not inten ded for use in medic al-le gal appli catio n. Not Available [facility] [address] [place], [address], 05/21/2024 14:30:03 08/13/19 25 08/17/2024 THINP REP TIS PAP clinical information: normal None given Not Available [facility] [place] [address] [address] [place], [address], 08/17/2024 13:21:01 08/13/19 25 08/17/2024 THINP REP TIS PAP LMP: normal NONE GIVEN Not Available [employer] [address] [address] [place], [address], 08/17/2024 13:21:01 08/13/19 25 08/17/2024 THINP REP TIS PAP prev. Pap: normal NONE GIVEN Not Available [employer] [address] [address] [place], [address], 08/17/2024 13:21:01 08/13/1908/17/2024 THINP REP TIS PAP prev. BX: normal NONE GIVEN Not Available [address] [place], [address], 08/17/2024 13:21:01 08/13/1908/17/2024 THINP REP TIS PAP source: normal Cervi x Not Available [place] [address] [address] [place], [address], 08/17/2024 13:21:01 08/13/1908/17/2024 THINP REP TIS PAP statement of adequacy: normal Satis facto ry for evalu ation . Endoc ervic al/tr ansfo rmati on zone compo nent prese nt. Age and/o r menst rual statu s not provi ded Not Available [address], [address], 08/17/2024 13:21:01 08/13/1908/17/2024 THINP REP TIS PAP interpretati on/result: normal Cytol ogy Resul ts: Negat francie for intra epith elial lesio n or leighton licea . Not Available [address], [address], 08/17/2024 13:21:01 08/13/1908/17/2024 THINP REP TIS PAP comment: normal This case could not be evalu ated with compu ter pillo funmi techn ology . The slide was joni chapa krystyna accor ding to luci aditi rivers . Not Available [address] [place], [address], 08/17/2024 13:21:01 08/13/1908/17/2024 THINP REP TIS PAP cytotechnolo gist: normal TLS, CT( CP) CT Scree lilo Locat ion: [place] [address] [facility] [address] Not Available [place] [address] [address] [place], [address], 08/17/2024 13:21:01 08/13/1908/17/2024 THINP REP TIS PAP review cytotechnolo gist: normal TMK, CT( CP) CT scree lilo locat ion: [place] [address] [place] [address] Not Available [place] [address] [address] [place], [address], 08/17/2024 13:21:01 08/13/19 25 08/17/2024 THINP REP [...] with histo stewart and curre nt clini aguilar infor matio n. Not Available [address] [address] [place], [address], 08/17/2024 13:21:01 09/07/1909/13/2024 TISSU E PATHO LOGY clinical information HPV DNA HR + Not Available [address] [address] [place], [address], 09/13/2024 14:06:49 09/07/1909/13/2024 TISSU E PATHO LOGY pathologist Shahram campos, D.O., Board Certi fied in Anato janneth Patho logy, Clini aguilar Patho logy and Hemat opath ology (elec troni c signa ture) Not Available [address] [address] [place], [address], 09/13/2024 14:06:49 09/07/19 25 09/13/2024 TISSU E [...] for clini aguilar purpo ses. Not Available [facility] [address] [address] [place], [address], 09/13/2024 14:06:49 09/07/19 25 09/13/2024 TISSU E PATHO LOGY A source Cervi x, 4 o'rosa ck, biops y Not Available [facility] [address] [address] [place], [address], 09/13/2024 14:06:49 09/07/19 25 09/13/2024 TISSU E [...] [facility] [address] [place] [address] [place] [address] Labor atory Direc tor: VICENTA Olivia MD Not Available [facility] [address] [address] [place], [address], 09/13/2024 14:06:49 09/07/19 25 09/13/2024 TISSU E PATHO LOGY A diagnosis 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 Acute and chron ic cervi citis with squam ous metap lasia . Trans forma tion zone not prese nt. Not Available [address] [address] [place], [address], 09/13/2024 14:06:49 09/07/19 25 09/13/2024 TISSU E PATHO LOGY B source Endoc ervix , curet tage Not Available [facility] [address] [address] [address] , [place], [address], 09/13/2024 14:06:49 09/07/19 25 09/13/2024 TISSU E [...] tted in one casse tte. Not Available [facility] [address] [address] [address], [place], [address], 09/13/2024 14:06:49 09/07/19 25 09/13/2024 TISSU E PATHO LOGY B diagnosis Parti cles of endoc ervix and strip s of metap lasti c squam ous epith elium with infla mmato ry atypi a; negat francie for dyspl richard. Not Available [facility] [address] [address] , [place], [address], 09/13/2024 14:06:49 09/07/19 25 09/06/2024 pregn debra test, urine HCG negati ve Not Available [facility] [address], [place], [address], 09/06/2024 17:21:42 08/01/19 25 07/28/2024 MRI, pelvi s, w/wo contr ast No observ ation record ed. [email or web address] [facility] [address] [facility], [place], [address], 08/02/2024 11:32:01 Result Notes None recorded. Problems Name Problem SNOMED Code Status Onset Date Resolution Date Notes Provider Name and Address Organization Details Recorded Time Myocardial infarction 86933902 Active 2017 Ashley nielsen null, [facility] 4 13:34:10 Atypical glandular cells on cervical Papanicolaou smear 809891782 Active 2022 Leeann Murray MD [facility] [place], [address], [facility] 3 19:20:01 Chest pain 20684870 Active 2023 Ashley nielsen null, [employer] [facility] 4 13:34:10 Cardiac enzyme or marker above reference range 266942175 Active 2023 Ashleymichoacano nielsen null, [employer] [facility] 4 13:34:10 Problem Notes None recorded. Procedures Surgical History Date Name Laterality Status Provider Name and Address Organization Details Recorded Time 09/07/19 25 Colposcopy - Cervix completed Ced Garcia MD [address] [place], [address], [facility] 09/23/2024 18:38:19 05/12/20 23 biopsy of breast completed Ashleymichoacano Snow [facility] 05/20/2024 13:39:02 04/30/20 23 Most Recent Mammogram completed Ashley [facility] [place] 05/20/2024 13:38:24 04/10/20 23 Colposcopy - Cervix completed Leeann Murray MD [address] [place], [address], [facility] 04/10/2023 12:29:57 04/10/20 23 Endometrial Biopsy completed Leeann Murray MD [facility] [place], [address], [facility] 04/10/2023 12:30:28 03/06/20 23 Date of Last Pap Smear completed Leeann Murray MD [facility] [place], [address], [facility] 03/12/2023 12:57:10 section completed Renetta Colvin [facility] 03/06/2023 13:24:53 Imaging Results None recorded. Procedure Notes None recorded. Medical Equipment None Reported. Allergies Allergen ID Allergen Name Allergen Category Reaction Reaction Severity Criticality Documentation Date Start Date Code Code System Note Provider Name and Address Organization Details Recorded Time 129937 morphine medicatio n itching Not available Not available 03/06/20232022 7052 RxNorm [facility] 4 13:34:02 764311 Bactrim medicatio n rash Not available Not available 03/06/2023 08776 9 RxNorm Renetta Colvin [facility] 3 13:12:45 290469 adhesive tape environme nt,medica tion rash Not available low 09/30/2024 Lucina Rhodes null, [facility] 5 11:31:34 Medications Name Sig Start Date [...] Updated DateTime 08/12/2024 172.72 cm 32.8 kg/m2 47694.95 g 126/88 mm[Hg] Cateranjose Jhony [facility] 08/12/2024 12:53:41 Date Recorded Body height Body mass index (BMI) Body weight Provider Name and Address Organization Details Last Updated DateTime 09/06/2024 172.72 cm 32.1 kg/m2 [address]762.[address] [facility] Osito [facility] 09/06/2024 17:10:00 Date Recorded Body height Body mass index (BMI) Body weight Systolic And Diastolic Provider Name and Address Organization Details Last Updated DateTime 09/24/2024 172.72 cm 32.4 kg/m2 04250.17 g 124/90 mm[Hg] [facility] 09/24/2024 12:43:53 Date Recorded Body height Body mass index (BMI) Body weight Systolic And Diastolic Provider Name and Address Organization Details Last Updated DateTime 09/30/2024 172.72 cm 32.4 kg/m2 60733.17 g 110/70 mm[Hg] [facility] Osito [facility] 09/30/2024 11:31:04 Date Recorded Body weight Body mass index (BMI) Body height Systolic And Diastolic Provider Name and Address Organization Details Last Updated DateTime 05/20/2024 82281.81 g 31.8 kg/m2 172.72 cm 146/106 mm[Hg] Ashley Snow [facility] 05/20/2024 13:44:57 Social History Question Answer Notes LastModified by Organizat ion Details LastModified Time Tobacco Smoking Status Former Smoker Renetta means, [facility] 03/06/2023 13:24:45 If You Are , What Was Your Level Of Alcohol Consumption Prior To ? None [email or web address] Information not available 03/06/2023 Are You Blind Or Do You Have Difficulty Seeing? No [email or web address] Information not available 03/06/2023 Are You Deaf Or Do You Have Serious Difficulty Hearing? No [email or web address] Information not available 03/06/2023 What Type Of Diet Are You Following? REGULAR Not Pork [email or web address] Information not available 03/06/2023 When Did You Quit Smoking? 1-5yearssin juanita charles [email or web address] Information not available 03/06/2023 How Many Children Do You Have? 5 1 alison Information not available 05/20/2024 What Is Your Relationship Status? Single [email or web address] Information not available 03/06/2023 Are You Sexually Active? Yes [email or web address] Information not available 03/06/2023 How Many Years Have You Smoked Tobacco? 20 [email or web address] Information not available 03/06/2023 Sex: Unknown Functional Status Question Answer Note LastModified by [employer] ion Details LastModified Time Do you use any illicit or recreational drugs? No [email or web address] Information not available 03/06/2023 Do you or have you ever used any other forms of tobacco or nicotine? No [email or web address] Information not available 03/06/2023 What is your level of alcohol consumption? None [email or web address] Information not available 03/06/2023 Are you currently employed? No [email or web address] Information not available 03/06/2023 Mental Status None recorded. Family History Relationship Description Onset Age of this Age Resolved Age Notes LastModified by Organization Details LastModified Time Father No current problems or disability [email or web address] Not available 03/26 12:31:48 Mother No current problems or disability Not available 03/26 12:31:48 Medical History Condition Response Other Cancer N High Blood Pressure N Colon Cancer N Cytomegalovirus N Hyperthyroidism N MRSA N Blood Transfusion N Herpes (HSV) N Breast Cancer N Lung Cancer N Hypothyroidism N Depression N Incontinence N Panic Attacks N Neurological Disorder N Deep Vein Thrombosis N Anxiety Disorder N Autoimmune disease N Arthritis N Shingles N Tuberculosis/Positive PPD N Infertility N Polycystic Ovarian Syndrome N Cervical Cancer N Chlamydia N Hematuria N Stroke N Varicosities N Seasonal allergies N Crohn's Disease N Alzheimer's/Dementia N COPD/Emphysema N Endometriosis N HPV/Genital Warts N IBS (Irritable Bowel Syndrome) N History of Abnormal Pap N High Cholesterol N Liver Disease N Kidney Infection N Fibromyalgia N Ulcer N Kidney Disease N HIV N Gallbladder disease N Von Willebrand disease N Sickle Cell Disease/Trait N ADD/ADHD N Eating Disorder N Diabetes Mellitus (non-insulin dependent ) N Anemia N Ovarian Problems N Multiple Sclerosis N Gonorrhea N Frequent Urinary Tract infections N Osteopenia N Headaches/migraines N GERD (reflux) N Ovarian Cancer N Diabetes (insulin dependent) N Seizures/Epilepsy N Breast Problems N Fibroids N Asthma N Heart Attack N Endometrial Cancer N Lupus N Rubella N Blood Clotting Disorder N Bipolar Disorder N Diabetes Mellitus (during ) N Ulcerative Colitis N Hepatitis N Heart Disease N Pulmonary Embolism N RPR N Chicken Pox N Osteoporosis N Gynecological History Statement/Question Response [...] ICD10 Code Diagnosis IMO Codes Diagnosis Note [id number] Leeann Murray MD [facility] [place] [facility] [address] [place] [address] 03/06/2023 12:58:04 03/07/2023 12:20:19 Gynecologic examination 48804915 Z01.419 Screening for malignant neoplasm of cervix 171050767 Z12.4 Screening for malignant neoplasm of breast 366566812 Z12.39 Screening colonoscopy 44 8417615 Z12.11 Depression screening 171 086026 Z13.31 Irregular periods 651237 07 N92.6 Surveillan ce of contraception 199186363 Z30.40 Desires sterilizat ion. Patient desires sterilizat [...] has elected to proceed. POP until then. [id number] GIGI CUEVAS [facility] [address] [place] [address] 03/26/2023 12:16:43 03/26/2023 17:58:39 Discharge from nipple 11209248 N64.52 -The appearance of the discharge (bloody [...] levelRevie w medication sOrder diagnostic mammogram/ breast [id number] Leeann Murray MD [facility] [address] [place] [address] 04/10/2023 11:42:03 04/10/2023 14:14:21 Atypical glandular cells on cervical Papanicolaou smear 362332489 R87.676 [id number] MIRIAM DICKINSON, [employer] [facility] [place] [facility] [address] [place] [address] 05/20/2024 13:21:16 05/24/2024 10:59:57 Hydrosalpinx 02658876 N70.11 93596 -05/11 ER visit showed 4.2cm tubular structure [...] patient care was coordinate d. Vaginal discharge 895251 006 N89.8 N76.0 Pt educated on exam findings, and discussed POC. Vaginal cx collected and sent. Discussed use of boric acid suppositor ies to help alleviate symptoms. 1 vaginal suppositor y at bedtime 3 nights in a row. Pt advised to avoid fragrant soaps/laun dry detergents , use of baking soda soaks, having partner change soaps, etc. Further POC pending lab result review. [id number] Leeann Murray MD [facility] [place] [facility] [address] [place] [address] 08/12/2024 12:33:11 08/12/2024 15:18:33 Hydrosalpinx 78632707 N70.11 [id number] Patient at the very least needs a [...] Operative laparoscop y with bilateral salpingect maribel/Dx [facility] Cancer cer vix screening status 164214579 Z12.4 666047 Menometrorrhagia 6918088 08 N92.1 69165 [id number] Ced Garcia MD [facility] [address] [place] [address] 09/06/2024 16:55:38 09/24/2024 15:40:44 Human papillomavirus deoxyribonucleic acid detected, high risk on cervical specimen 192285120 R87.810 Abnormal f inding on evaluation procedure 398630245 R87.811 Secondary dysmenorrhea 67706199 N94.5 228895 Atypical g landular cells on cervical Papanicolaou smear 698583992 R87.619 [id number] discussed w/patient and dr [facility] and hx cheri and enlarged uterus will proceed with laparoscop ic BS and leep and dna dc and hysterosco py Pelvic mass 14495477 R19 .00 1332717 Enlarged uterus 81841094 4 N85.2 70813 Subserous leiomyoma of uterus 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 Baking soda soaks will help rinse away extra discharge and help with odor.-DO NOT SHAVE, wax or laser the vulvar area (the bikini line is ok). -Can use OTC boric acid capsules to control odor [id number] Leeann Murray MD [facility] h [address] [place] [address] 09/30/2024 11:16:01 09/30/2024 11:59:11 Postoperative visit 424666022 Z09 Discussed postoperat francie pathology with patient. Reviewed Surgical findings. Patient instructed that she may return to routine activities . All of her questions were answered. Resume routine CR[employer]OOTER care. The patient was initially evaluated by [...] Esquivel Member ID Guarantor Name 11/14/2024 1 [employer] [place] (MEDICAID HMO) [id number] Angelita Medina [id number] Angelita Medina 03/06/2023 1 [place] Angelita Medina [id number] Angelita Medina Notes Date Note Type Note [...] has no other concerns. MIRIAM DICKINSON, GIGI [facility], [place], [address], [facility] 05/21/2024 13:42:30 08/12/2024 text/html Angelita is a 48 y/o female. LMP 5-4-25. Last PAP 2022. Pt is here to f/u on her MRI done at [facility] for a pelvic mass. Angelita is [...] due to transportation issues. Leeann Murray MD [address] [place] [address], [address], [facility] IV 08/15/2024 08:10:49 09/06/2024 text/html ROS as noted in the HPI The patient verbally consented to documentation via virtual scribe for this encounter. Angelita is a 48-year-old female who presents today for colposcopy. She had an CHERI Pap smear in 2022 with a negative endometrial biopsy and then positive for high risk HPV. Ced Garcia MD [address] [place] [address], [address], [facility] IV 09/23/2024 18:38:38 09/24/2024 text/html Angelita c/o vaginal odor and dark black blood discharge. She had surgery on 09/05/[address] Murray a bilateral scalpectomy. She has post op visit on 09/30/[address] Murray. Gely Walker CNM [address] [place] [address], [address], [facility] [employer] 09/26/2024 09:11:12 09/30/2024 text/html Post-OpReported by [...] antibiotics by Gely. Leeann Murray MD [address] [facility], [place], [address], [facility] [facility] 10/04/2024 21:14:01 OBGyn Episode Ob Episode Information Episode Created Date Number of Fetuses Patient Bloodtype Patient rh Status Prepregnancy Weight lbs Domestic Partner Domestic Partner Phone Father Name Costumer Status 03/06/20 1 CLOSED Fetus Data First Name Last Name Admitted to NICU Weight (g) Sex Living Outcome Pediatric Complications Fetus ID Race Codes Race Delivery Type F Full Term [id number] Gabe Calculation Initial Gabe Date Initial Exam [...] Tubal Sterilization Discharge Date Comments 0 39 [place] Discharge Information Feeding Method Contraceptive Method Maternal HG B and HCT Levels Ob Episode Information Episode Created Date Number of Fetuses Patient Bloodtype Patient rh Status Prepregnancy Weight lbs Domestic Partner Domestic Partner Phone Father Name Costumer Status 03/06/20 1 CLOSED Fetus Data First Name Last Name Admitted to NICU Weight (g) Sex Living Outcome Pediatric Complications Fetus ID Race Codes Race Delivery Type F Full Term [id number] Gabe Calculation Initial Gabe Date Initial Exam [...] Domestic Partner Domestic Partner Phone Father Name Costumer Status 03/06/20 23 1 CLOSED Fetus Data First Name Last Name Admitted to NICU Weight (g) Sex Living Outcome Pediatric Complications Fetus ID Race Codes Race Delivery Type F Full Term [id number] Gabe Calculation Initial Gabe Date Initial Exam [...] Tubal Sterilization Discharge Date Comments 5 39 [place], [place] Discharge Information Feeding Method Contraceptive Method Maternal HG B and HCT Levels Ob Episode Information Episode Created Date Number of Fetuses Patient Bloodtype Patient rh Status Prepregnancy Weight lbs Domestic Partner Domestic Partner Phone Father Name Costumer Status 03/06/20 23 1 CLOSED Fetus Data First Name Last Name Admitted to NICU Weight (g) Sex Living Outcome Pediatric Complications Fetus ID Race Codes Race Delivery Type F Full Term [id number] Primary Gabe Calculation Initial Gabe Date Initial [...] Tubal Sterilization Discharge Date Comments 8 39 [place], [place] Discharge Information Feeding Method Contraceptive Method Maternal HG B and HCT Levels Ob Episode Information Episode Created Date Number of Fetuses Patient Bloodtype Patient rh Status Prepregnancy Weight lbs Domestic Partner Domestic Partner Phone Father Name Costumer Status 03/06/20 23 1 CLOSED Fetus Data First Name Last Name Admitted to NICU Weight (g) Sex Living Outcome Pediatric Complications Fetus ID Race Codes Race Delivery Type F Full Term [id number] Gabe Calculation Initial Gabe Date Initial Exam [...] Tubal Sterilization Discharge Date Comments 9 39 [place], [place] Discharge Information Feeding Method Contraceptive Method Maternal HG B and HCT Levels Ob Episode Information Episode Created Date Number of Fetuses Patient Bloodtype Patient rh Status Prepregnancy Weight lbs Domestic Partner Domestic Partner Phone Father Name Costumer Status 03/06/20 1 CLOSED Fetus Data First Name Last Name Admitted to NICU Weight (g) Sex Living Outcome Pediatric Complications Fetus ID Race Codes Race Delivery Type Ectopic [id number] Gabe Calculation Initial Gabe Date Initial Exam [...] Domestic Partner Domestic Partner Phone Father Name Costumer Status 03/06/20 23 1 CLOSED Fetus Data First Name Last Name Admitted to NICU Weight (g) Sex Living Outcome Pediatric Complications Fetus ID Race Codes Race Delivery Type F Full Term [id number] Gabe Calculation Initial Gabe Date Initial Exam [...] Tubal Sterilization Discharge Date Comments 0 39 [place] Discharge Information Feeding Method Contraceptive Method Maternal HG B and HCT Levels
[2025-05-17 09:28] LABS: EDUAAPPEAR Clear; EDUABILI Negative (Negative); EDUABLOOD Negative (Negative); EDUACOLOR1 Yellow; EDUAGLUCOSE Negative (Negative); EDUAKETONE Negative (Negative); EDUALEUKO Negative (Negative); EDUANITRATE Negative (Negative); EDUAPH 6.0; EDUAPROTEIN Trace (Negative); EDUASPGRAVITY 1.025; EDUAUROBILI 1.0
--- NOTE | 2025-05-17 09:56 | ED.FEMALEGU ---
HPI - Female Genitourinary General Chief complaint: Urogenital-Female Stated complaint: back and front lower side pain Time Seen by Provider: 05/17/25 09:45 Source: patient and RN notes reviewed Mode of arrival: ambulatory Limitations: no limitations History of Present Illness HPI Narrative: 49-year-old female presents Express Care complaining of urinary symptoms for 2-3 days. Patient reports having hesitancy, increased frequency, nocturia, low back pain, foul-smelling urine. Patient denies any fevers, abdominal pain, body aches, chills, nausea, vomiting, diarrhea, or any other symptoms. Patient has not taken anything [id number] for symptoms. Patient denies any significant past medical history. Related Data Home Medications ?Medication ?Instructions ?Recorded ?Confirmed ?Last Taken ?Type paroxetine HCl 20 mg tablet mg PO 03/15/25 Unknown History risperidone 1 mg tablet mg 03/15/25 Unknown History Allergies Allergy/AdvReac Type Severity Reaction Status Date / Time acetaminophen (From Vicodin) Allergy Unknown Unknown Verified 05/17/25 09:18 hydrocodone (From Vicodin) Allergy Unknown Unknown Verified 05/17/25 09:18 morphine Allergy Unknown Unknown Verified 05/17/25 09:18 Review of Systems Review of Systems: CONSTITUTIONAL: Denies fever, chills, body aches, or sweats. EYES: Denies visual changes, redness, or discharge. ENT: Denies rhinorrhea, congestion, sore throat, or otalgia. CARDIOVASCULAR: Denies chest pain, palpitations, or edema. RESPIRATORY: Denies cough or dyspnea. GASTROINTESTINAL: Denies abdominal pain, nausea, vomiting, or diarrhea. GENITOURINARY: Positive for hesitancy, nocturia, foul-smelling urine, increased frequency. Negative for hematuria, dysuria. SKIN: Denies rash or itching. MUSCULOSKELETAL: Positive for back pain. Negative for, joint pain, or myalgia. NEUROLOGIC: Denies headache, numbness, or weakness. PSYCHIATRIC: Denies anxiety or depression. All other systems reviewed are negative, except as documented in HPI. [facility] Past Medical History Medical History Depression Environmental allergies Surgical History Surgical History H/O toe surgery Previous section Family History Family History Mother Family history non-contributory Social History Social History Smoking status: Never smoker Alcohol intake: current Alcohol use details: social Substance use type: does not use Living arrangements: with family Gender identity (if verbalized by the patient): Female Comments At the time of my signature, I reviewed and agree with the nursing past medical, surgical, social, and family history. There is no relevant family history pertinent to the patient complaint. Exam Narrative: GENERAL: This is a well-nourished, well-developed adult, in no apparent distress. They are non ill-appearing, nontoxic appearing. HEAD: normocephalic, atraumatic. EYES: Sclera clear/white. Vision is grossly intact. Conjunctiva normal bilaterally. Extraocular movements intact. EARS: External ears normal,Hearing grossly intact. NOSE: External nose normal THROAT: Mucous membranes moist NECK: Normal range of motion CARDIOVASCULAR: Regular rate and rhythm. Normal S1-S2. No clicks, gallops, rubs, murmurs. RESPIRATORY: Respiratory rate normal, respiratory effort nonlabored, no respiratory distress. Lung sounds clear to auscultation throughout. Lung sounds equal bilaterally. No adventitious lung sounds. GASTROINTESTINAL: Abdomen soft, flat, non-tender, nondistended. Bowel sounds are active. No hepato-splenomegaly, or palpable masses. No guarding or rigidity. No rebound tenderness. SKIN: warm, Dry, intact with no suspicious lesions or rash, good texture and turgor. NEURO: awake, alert, and oriented to person, place and time. There were no obvious focal neurologic abnormalities. EXTREMITIES: No joint tenderness, effusion, or edema noted. BACK: Nontender without deformity. No CVA tenderness. Course Course Level of Care: Express Care Visit Vital Signs Vital signs: Vital Signs Temperature 98.3 F 05/17/25 09:16 Pulse Rate 71 05/17/25 09:16 Respiratory Rate 20 05/17/25 09:16 Blood Pressure 145/81 H 05/17/25 09:16 Pulse Oximetry 100 05/17/25 09:16 Oxygen Delivery Room Air 12/23/25 09:16 Temperature 98.3 F 12/23/25 09:16 Pulse Rate 71 05/17/25 09:16 Respiratory Rate 20 05/17/25 09:16 Blood Pressure 145/81 H 05/17/25 09:16 Pulse Oximetry 100 05/17/25 09:16 Oxygen Delivery Room Air 05/17/25 09:16 [facility] Narrative Medical decision making narrative: Urine dipstick if per trace protein otherwise unremarkable. Urine culture pending. Symptoms concerning for urinary tract infection. Will treat with Macrobid. Discussed physical exam findings. Advised supportive measures and signs/symptoms to go to the ER. Pt is appropriate for outpt treatment and f/u. Differential Diagnosis Differential Diagnosis: Urinary tract infection, pyelonephritis, cystitis Lab Data [facility] Lab Attestation statement: I personally reviewed the patient's lab results. Labs: Lab Results 05/17/25 Range/Units 09:26 POC Urine Color Yellow POC Urine Clarity Clear POC Urine pH 6.0 POC Ur Specif [place] 1.025 POC Urine Protein Trace (Negative) POC Ur Glucose (UA) Negative (Negative) POC Urine Ketones Negative (Negative) POC Urine Blood Negative (Negative) POC Urine Nitrite Negative (Negative) POC Urine Bilirubin Negative (Negative) POC Urine Urobilinogen 1.0 POC U Leukocyte Esteras Negative (Negative) Discharge Plan Discharge Clinical Impression: Urinary tract infection Qualifiers: Urinary tract infection type: site unspecified Hematuria presence: without hematuria Qualified Code(s): N39.0 - Urinary tract infection, site not specified Patient Disposition: Home Condition: Stable Instructions: Antibiotic Form, Urinary Tract Infection in Women (ED) Additional Instructions: Take the antibiotic as prescribed The urine will be sent of for a culture to identify what type of bacteria is causing your infection. If the culture shows that the antibiotic will not get rid of your infection, you will be notified and a new antibiotic will be called in for you. Increase water intake you will need to follow up with your PCP 3-5 days. Go to the ER for any worsening symptoms, severe abdominal pain, fevers, nausea, vomiting, or any other concerns Patient Language: Wallisian Prescriptions: New nitrofurantoin monohyd/m-cryst [Macrobid] 100 mg capsule 100 mg PO Q12H 5 Days Qty: 10 0RF Rx Instructions: must administer with a meal/food No Action paroxetine HCl 20 mg tablet PO risperidone 1 mg tablet Follow-up/Referrals: PHYSICIAN NOT ON STAFF,NONSTAFF [Primary Care Provider] Time of Disposition: 09:49
== END 2025-05-17 09:54 | disposition home or self-care (01) ==
DX: N39.0 Urinary tract infection, site not specified (principal); F32.A Depression, unspecified
CPT/HCPCS: 81003; 87086; 99213; G0463